=== PATIENT | female | born 1930 | race Caucasian/White ===

== ENCOUNTER 2016-11-21 16:25 | Inpatient (IN) | payer OTHER ==
[2016-11-21 16:41] VITALS: PULSE 66; TEMP 97.9; BMI 23.0
--- NOTE | 2016-11-21 16:56 | PDOC ---
History of Present Illness - General History Source: Family Exam Limitations: No Limitations - History of Present Illness Initial Comments: 11/21/16 17:15 The patient is an 86-year-old female accompanied by son, with a significant past medical history of dementia, anxiety, and osteoporosis, who presents to the ED with loss of appetite and nausea for the past two weeks. As per son, the pt has not been eating solids and has not been drinking enough liquids. The patient will try some food and spit it out. Son brought the pt to her PCP, Dr. Geeta Jackson, on Saturday and he was advised to give the pt vitamin water. Son believes the patient has lost about 5 pounds. On exam, the patient reports abdominal pain. Son denies that the pt has any fever, chills, vomiting, or diarrhea. PCP: Dr. Geeta Jackson <Chiqui Stewart - Last Filed: 11/21/16 17:47> <Lashell Drew - Last Filed: 11/21/16 23:58> - General Chief Complaint: Loss of Appetite Stated Complaint: ABD PAIN,DEHYDRATED Past History <Chiqui Stewart - Last Filed: 11/21/16 17:47> - Past Medical History Cardiac Disorders: Yes (heart murmur) Dementia: Yes Psychiatric Problems: Yes (anxiety) Suicide Attempt (Hx): No - Surgical History Abdominal Surgery: Yes (OVARIAN) - Immunization History Immunization Up to Date: Yes - Psycho/Social/Smoking Cessation Hx Anxiety: Yes Suicidal Ideation: No Smoking History: Never smoked Have you smoked in the past 12 months: No Information on smoking cessation initiated: No Hx Alcohol Use: No Drug/Substance Use Hx: No Substance Use Type: None Hx Substance Use Treatment: No <Lashell Drew - Last Filed: 11/21/16 23:58> - Past Medical History Allergies/Adverse Reactions: Allergies Allergy/AdvReac Type Severity Reaction Status Date / Time No Known Allergies Allergy Verified 11/21/16 16:37 Home Medications: Ambulatory Orders Acetaminophen [Tylenol] 650 mg PO PRN PRN 11/12/14 Aspirin [ASA -] 81 mg PO DAILY 11/12/14 Quetiapine Fumarate [Seroquel -] 50 mg PO HS 11/12/14 Ibandronate Sodium [Boniva (Monthly)] 150 mg PO Q30D 01/25/15 Pravastatin Sodium [Pravachol -] 20 mg PO HS 02/14/15 Furosemide 20 mg PO DAILY 10/26/15 Memantine HCl [Namenda -] 14 mg PO DAILY 10/26/15 Metoprolol Tartrate 50 mg PO BID 10/26/15 Alprazolam [Alprazolam ER] 1 mg PO BID 11/21/16 Memantine HCl/Donepezil HCl [Namzaric 21 mg-10 mg Capsule] 1 each PO DAILY 11/21 Omeprazole 20 mg PO DAILY 11/21/16 Rivastigmine 1 each TD DAILY 11/21/16 Zolpidem Tartrate [Ambien] 10 mg PO HS 11/21/16 Review of Systems - Review of Systems Able to Perform ROS?: Yes Comments:: 11/21/16 17:15 GENERAL/CONSTITUTIONAL: No fever or chills. No weakness. +loss of appetite HEAD, EYES, EARS, NOSE AND THROAT: No change in vision. No ear pain or discharge. No sore throat. CARDIOVASCULAR: No chest pain or shortness of breath. RESPIRATORY: No cough, wheezing, or hemoptysis. SKIN: No rash GASTROINTESTINAL: No nausea, vomiting, diarrhea or constipation. +nausea, abdominal pain GENITOURINARY: No dysuria, frequency, or change in urination. MUSCULOSKELETAL: No joint or muscle swelling or pain. No neck or back pain. NEUROLOGIC: No headache, vertigo, loss of consciousness, or change in strength/ sensation. ENDOCRINE: No increased thirst. No abnormal weight change. HEMATOLOGIC/LYMPHATIC: No anemia, easy bleeding, or history of blood clots. ALLERGIC/IMMUNOLOGIC: No hives or skin allergy. <Chiqui Stewart - Last Filed: 11/21/16 17:47> *Physical Exam - Vital Signs Last Vital Signs Temp Pulse Resp BP Pulse Ox 97.9 F 66 20 112/58 97 11/21/16 16:37 11/21/16 16:37 11/21/16 16:37 11/21/16 16:37 11/21/16 16:37 - Physical Exam Comments: 11/21/16 17:16 GENERAL: Awake, alert, and fully oriented, in no acute distress HEAD: No signs of trauma ENT: Auricles normal inspection, nares patent, oropharynx clear EYES: PERRLA, EOMI, sclera anicteric, conjunctiva clear without exudates. +Mild dry mucous membranes. NECK: Normal ROM, supple, no lymphadenopathy, JVD, or masses LUNGS: Breath sounds equal, clear to auscultation bilaterally. No wheezes, and no crackles HEART: Regular rate and rhythm, normal S1 and S2, no murmurs, rubs or gallops ABDOMEN: Soft, nontender, normoactive bowel sounds. No guarding, no rebound. No masses EXTREMITIES: Normal range of motion, no edema. No clubbing or cyanosis. No cords, erythema, or tenderness NEUROLOGICAL: Normal speech. Moves all extremities. SKIN: Warm, Dry, normal turgor, no rashes or lesions noted. <Chiqui Stewart - Last Filed: 11/21/16 17:47> - Vital Signs Last Vital Signs Temp Pulse Resp BP Pulse Ox 97.9 F 66 20 112/58 97 11/21/16 16:37 11/21/16 16:37 11/21/16 16:37 11/21/16 16:37 11/21/16 16:37 <Lashell Drew - Last Filed: 11/21/16 23:58> Heart Score/ECG Review #1 General ECG Interpretation: Sinus Rhythm, Normal Rate (66), Normal Intervals, No acute ischemic changes - ECG Intrepretation Rhythm: Regular Rhythm - Austin Austin: Normal <Lashell Drew - Last Filed: 11/21/16 23:58> ED Treatment Course - LABORATORY CBC & Chemistry Diagram: 11/21/16 17:40 11/21/16 17:40 <Chiqui Stewart - Last Filed: 11/21/16 17:47> - LABORATORY CBC & Chemistry Diagram: 11/21/16 17:40 11/21/16 17:40 <Lashell Drew - Last Filed: 11/21/16 23:58> Medical Decision Making - Medical Decision Making 11/21/16 16:53 86 yo F with no pmhx living with family here wtih c/o loss of appetitie for 2 weeks. brought by her son who states over last week pt refusing to eat or drink anything. states she feels nauseas. no f/c no cp no sob. does complain of abd distension. no c/o change to bm. no h/o cancer. no vomiting. pt pcp dr. Geeta jackson on exam awake awake alert mild dry mucous membranes. cardiac lung exam are normal. abd soft NT ND. ext wwp. no edema. nuerologically moves all ext. differential: renal failure, electrolyte abnormality, cancer, uti or other infection, anemia, plan cxr ekg labs ua . iv hydration. pt will require admission for further workup and FTT. 11/21/16 23:57 d/w pt and family. would like to take patient home. explained not advised as pt has uti, not tolerating po well. states she feels better and drank in ed. aware of risk of overwhelming infection will take home and given antiobtioc.s encourage to follow up with dr jackson tomorrow. left AMA <Lashell Drew - Last Filed: 11/21/16 23:58> *DC/Admit/Observation/Transfer - Attestations Scribe Attestion: 11/21/16 17:17 Documentation prepared by Chiqui Stewart, acting as medical center manager for Lashell Drew MD. <Chiqui Stewart - Last Filed: 11/21/16 17:47> - Discharge Dispostion Admit: No <Lashell Drew - Last Filed: 11/21/16 23:58> Diagnosis at time of Disposition: UTI (urinary tract infection) - Discharge Dispostion Disposition: HOME Condition at time of disposition: Fair - Referrals
[2016-11-21 17:46] LABS: BASOPHIL 0.5 % (0-2.0); EOSINOPHIL 0.2 % (0-4.5); MCH 29.9 pg (25.7-33.7); MCHC 32.8 g/dl (32.0-36.0); MEAN CELL VOLUME 91.3 fl (80-96); MEAN PLT VOLUME 7.1 fl (7.5-11.1); NEUTROPHILS 71.1 % (42.8-82.8); PLATELET COUNT 308 K/MM3 (134-434); RDW 13.4 % (11.6-15.6); WHITE BLOOD COUNT 8.3 K/mm3 (4.0-10.0)
[2016-11-21 18:16] LABS: ALBUMIN 3.3 g/dl (3.4-5.0); ANION GAP 9 (8-16); CALCIUM 9.5 mg/dL (8.5-10.1); CO2 29 mmol/L (21-32); COCKROFT - GAULT 63.8095; CREATININE 0.6 mg/dL (0.55-1.02); GLUCOSE,RANDOM 115 mg/dL (74-106); SGOT/AST 21 U/L (15-37); SGPT/ALT 20 U/L (12-78); TOT PROT 7.4 g/dl (6.4-8.2)
[2016-11-21 18:22] LABS: ALK PHOS 114 U/L (45-117); BILIRUBIN,TOTAL 0.4 mg/dL (0.2-1.0)
[2016-11-21 18:35] LABS: URINE APPEARANCE CLOUDY; URINE BILIRUBIN NEGATIVE (NEGATIVE); URINE BLOOD NEGATIVE (NEGATIVE); URINE COLOR AMBER; URINE GLUCOSE (UA) NEGATIVE (NEGATIVE); URINE KETONE 1+ (NEGATIVE); URINE NITRITE NEGATIVE (NEGATIVE); URINE UROBILINOGEN NEGATIVE E.U./dl (0.2-1.0)
[2016-11-21 18:54] LABS: URINE LEUK ESTERASE 2+ (NEGATIVE); URINE PROTEIN 1+ (NEGATIVE)
[2016-11-21 18:55] LABS: URINE BACTERIA MODERATE /hpf (NONE SEEN); URINE HYALINE CAST 1 /lpf; URINE MUCUS MODERATE; URINE RBC 2 /hpf (0-3); URINE WBC 75 /hpf (3-5)
[2016-11-21 19:48] VITALS: BP 134/68
[2016-11-21 19:49] LABS: TROPONIN I < 0.02 ng/ml (0.00-0.05)
[2016-11-21] MEDS ORDERED: CEFTRIAXONE 1 GM in DEXTROSE 5%-WATER - 50 ML IVPB ONE (20:10)
[2016-11-21] MEDS ORDERED: CEFTRIAXONE 50 ML ONE (20:12)
--- NOTE | 2016-11-22 12:37 | EKG ---
Test Reason : Blood Pressure : / mmHG Vent. Rate : 066 BPM Atrial Rate : 066 BPM P-R Int : 200 ms QRS Dur : 080 ms QT Int : 428 ms P-R-T Axes : 069 -26 055 degrees QTc Int : 448 ms SINUS RHYTHM WITH PREMATURE SUPRAVENTRICULAR COMPLEXES POSSIBLE LEFT ATRIAL ENLARGEMENT BORDERLINE ECG WHEN COMPARED WITH ECG OF 26-OCT-2015 11:56, PREMATURE SUPRAVENTRICULAR COMPLEXES ARE NOW PRESENT Confirmed by KIANA LINTON, CHRISTOPH ([id number]) on 11/22/2016 12:37:19 PM Referred By: Confirmed By:CHRISTOPH BRUNO MD
--- NOTE | 2016-11-22 14:37 | HP ---
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 Cardiovascular: Yes: HTN, Hyperlipdemia, Murmur Gastrointestinal: Yes: GERD - Smoking History Smoking history: Never smoked Have you smoked in the past 12 months: No - Alcohol/Substance Use Hx Alcohol Use: No Home Medications - Allergies Allergies/Adverse Reactions: Allergies Allergy/AdvReac Type Severity Reaction Status Date / Time No Known Allergies Allergy Verified 11/21/16 16:37 - Home Medications Home Medications: Ambulatory Orders Acetaminophen [Tylenol] 650 mg PO PRN PRN 11/12/14 Aspirin [ASA -] 81 mg PO DAILY 11/12/14 Quetiapine Fumarate [Seroquel -] 50 mg PO HS 11/12/14 Ibandronate Sodium [Boniva (Monthly)] 150 mg PO Q30D 01/25/15 Pravastatin Sodium [Pravachol -] 20 mg PO HS 02/14/15 Furosemide 20 mg PO DAILY 10/26/15 Memantine HCl [Namenda -] 14 mg PO DAILY 10/26/15 Metoprolol Tartrate 50 mg PO BID 10/26/15 Alprazolam [Alprazolam ER] 1 mg PO BID 11/21/16 Memantine HCl/Donepezil HCl [Namzaric 21 mg-10 mg Capsule] 1 each PO DAILY 11/21 Omeprazole 20 mg PO DAILY 11/21/16 Rivastigmine 1 each TD DAILY 11/21/16 Zolpidem Tartrate [Ambien] 10 mg PO HS 11/21/16 Cephalexin Monohydrate [Keflex -] 500 mg PO Q8H #21 capsule MDD 3 11/22/16 Physical Examination Vital Signs: Vital Signs Temperature 97.9 F 11/21/16 16:37 Pulse Rate 66 11/21/16 19:48 Respiratory Rate 20 11/21/16 19:48 Blood Pressure 134/68 11/21/16 19:48 O2 Sat by Pulse Oximetry (%) 100 11/21/16 21:07
== END 2016-11-22 00:30 | disposition home or self-care (01) | DRG 690 ==
LOC: JER 16:25 → JERBED 20:57
PROVIDERS: ADMIT Internal Medicine; ATTEND Internal Medicine
DX: N39.0 Urinary tract infection, site not specified (principal); B96.20 Unspecified Escherichia coli [E. coli] as the cause of diseases classified elsewhere; F41.9 Anxiety disorder, unspecified; F03.90 Unspecified dementia, unspecified severity, without behavioral disturbance, psychotic disturbance, mood disturbance, and anxiety; M81.8 Other osteoporosis without current pathological fracture; R63.0 Anorexia; Z68.23 Body mass index [BMI] 23.0-23.9, adult; E86.0 Dehydration; R01.1 Cardiac murmur, unspecified; E78.5 Hyperlipidemia, unspecified; K21.9 Gastro-esophageal reflux disease without esophagitis
CPT/HCPCS: 36415; 71010-TC; 74177-TC; 80053; 81003; 81015; 82550; 83690; 84484; 85025; 87086; 87186; 93005; 93010; 99284-25; 99285-25; J1644; Q9967

== ENCOUNTER 2016-11-22 16:10 | Inpatient (IN) | payer OTHER ==
[2016-11-22] MEDS ORDERED: CEFTRIAXONE 1 GM in DEXTROSE 5%-WATER - 50 ML IVPB ONE (20:31)
--- NOTE | 2016-11-22 20:32 | PDOC ---
History of Present Illness - General Chief Complaint: Weakness Stated Complaint: PCP ADMIT Time Seen by Provider: 11/22/16 19:11 - History of Present Illness Initial Comments: 11/22/16 20:32 CHIEF COMPLAINT: UTI HISTORY OF PRESENT ILLNESS: 86 yo F with PMH of dementia, anxiety, and osteoporosis returns to ER after being admitted yesterday for UTI and signing out AMA. Family states patient got anxious and agitated yesterday due to another combative patient in the ER and she wanted to go home. Family states that they were able to convince her to return to receive "care from the doctors here." Patient denies having any complaints at this time. PAST MEDICAL HISTORY: as per HPI FAMILY HISTORY: Denies SOCIAL HISTORY: Denies tobacco, alcohol, illicit drug use. SURGICAL HISTORY: Denies ALLERGIES: No known drug allergies REVIEW OF SYSTEMS General/Constitutional: Denies fever or chills. Denies weakness, weight change. HEENT: Denies change in vision. Denies ear pain or discharge. Denies sore throat. Cardiovascular: Denies chest pain or shortness of breath. Respiratory: Denies cough, wheezing, or hemoptysis. Gastrointestinal: Denies nausea, vomiting, diarrhea or constipation. Denies rectal bleeding. Genitourinary: Denies dysuria, frequency, or change in urination. Musculoskeletal: Denies joint or muscle swelling or pain. Denies neck or back pain. Skin and breasts: Denies rash or easy bruising. Neurologic: Denies headache, vertigo, loss of consciousness, or loss of sensation. PHYSICAL EXAM General Appearance: Well-appearing, appropriately dressed. No apparent distress. HEENT: EOMI, PERRLA, normal ENT inspection, normal voice, TMs normal, pharynx normal. No conjunctival pallor. No photophobia, scleral icterus. Respiratory/Chest: Lungs CTAB. Cardiovascular: RRR. S1, S2. Gastrointestinal/Abdominal: Normal bowel sounds. Abdomen soft, non-distended. No tenderness or rebound tenderness. No organomegaly, pulsatile mass, guarding , hernia, hepatomegaly, splenomegaly. Musculoskeletal/Extremities: Normal inspection. FROM of all extremities, normal capillary refill. Pelvis Stable. No CVA tenderness. No tenderness to extremities, pedal edema, swelling, erythema or deformity. Integumentary: Appropriate color, dry, warm. 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 Fully oriented, alert. Appropriate mood/affect. Motor strength 5/5. No appreciable EOM palsy, facial droop or sensory deficit. 11/22/16 20:52 Past History - Past Medical History Allergies/Adverse Reactions: Allergies Allergy/AdvReac Type Severity Reaction Status Date / Time No Known Allergies Allergy Verified 11/22/16 16:17 Home Medications: Ambulatory Orders Acetaminophen [Tylenol] 650 mg PO PRN PRN 11/12/14 Aspirin [ASA -] 81 mg PO DAILY 11/12/14 Quetiapine Fumarate [Seroquel -] 50 mg PO HS 11/12/14 Ibandronate Sodium [Boniva (Monthly)] 150 mg PO Q30D 01/25/15 Pravastatin Sodium [Pravachol -] 20 mg PO HS 02/14/15 Furosemide 20 mg PO DAILY 10/26/15 Memantine HCl [Namenda -] 14 mg PO DAILY 10/26/15 Metoprolol Tartrate 50 mg PO BID 10/26/15 Alprazolam [Alprazolam ER] 1 mg PO BID 11/21/16 Memantine HCl/Donepezil HCl [Namzaric 21 mg-10 mg Capsule] 1 each PO DAILY 11/21 Omeprazole 20 mg PO DAILY 11/21/16 Rivastigmine 1 each TD DAILY 11/21/16 Zolpidem Tartrate [Ambien] 10 mg PO HS 11/21/16 Cephalexin Monohydrate [Keflex -] 500 mg PO Q8H #21 capsule MDD 3 11/22/16 Cardiac Disorders: Yes (heart murmur) Dementia: Yes Psychiatric Problems: Yes (anxiety) Suicide Attempt (Hx): No - Surgical History Abdominal Surgery: Yes (OVARIAN) - Immunization History Immunization Up to Date: Yes - Psycho/Social/Smoking Cessation Hx Anxiety: No Suicidal Ideation: No Smoking History: Never smoked Have you smoked in the past 12 months: No Hx Alcohol Use: No Drug/Substance Use Hx: No Substance Use Type: None Hx Substance Use Treatment: No *Physical Exam - Vital Signs Last Vital Signs Temp Pulse Resp BP Pulse Ox 98.1 F 83 18 116/53 94 L 11/22/16 16:18 11/22/16 16:18 11/22/16 16:18 11/22/16 16:18 11/22/16 16:18 Medical Decision Making - Medical Decision Making 11/22/16 20:52 86 yo F with PMH of dementia, anxiety, and osteoporosis returns to ER after being admitted yesterday for UTI and signing out AMA. Discussed case with patient's PMD Manuel, who accepts patient for inpatient admission. Will start patient on 1 g ceftriaxone per PMD. *DC/Admit/Observation/Transfer Diagnosis at time of Disposition: UTI (urinary tract infection) - Discharge Dispostion Admit: Yes
[2016-11-22] MEDS ORDERED: CEFTRIAXONE 50 ML ONE (20:55)
[2016-11-22] MEDS ORDERED: ACETAMINOPHEN 325 MG TABLET (FP) PO PRN (21:07)
[2016-11-22] MEDS: D5-1/2NS+20 MEQ KCL - 1,000 ML IV SCH (21:29)
--- NOTE | 2016-11-22 21:40 | PDOC ---
*Physical Exam - Vital Signs Last Vital Signs Temp Pulse Resp BP Pulse Ox 98.1 F 83 18 116/53 94 L 11/22/16 16:18 11/22/16 16:18 11/22/16 16:18 11/22/16 16:18 11/22/16 16:18 ED Treatment Course - Medications Given in the ED: ED Medications Discontinued Medications Generic Name Dose Route Start Last Admin Trade Name Freq PRN Reason Stop Dose Admin Ceftriaxone Sodium 1 gm/ 50 mls @ 100 mls/hr 11/22/16 20:31 11/22/16 21:00 Dextrose IVPB 11/22/16 21:00 100 mls/hr ONCE ONE Administration Medical Decision Making - Medical Decision Making 11/22/16 21:40 agree with care from ALEKS Lara *DC/Admit/Observation/Transfer Diagnosis at time of Disposition: UTI (urinary tract infection)
[2016-11-22] MEDS ORDERED: METOPROLOL TARTRATE 50 MG TABLET (FP) ONE (22:45)
[2016-11-22] MEDS ORDERED: ALPRAZolam 0.25 MG TABLET ONE (22:46)
[2016-11-22] MEDS: ALPRAZolam 2 MG TABLET PO SCH (23:04)
[2016-11-22] MEDS: METOPROLOL TARTRATE 50 MG TABLET (FP) PO SCH (23:04)
[2016-11-23 06:02] LABS: BASOPHIL 0.8 % (0-2.0); EOSINOPHIL 1.5 % (0-4.5); MCH 29.5 pg (25.7-33.7); MCHC 32.3 g/dl (32.0-36.0); MEAN CELL VOLUME 91.5 fl (80-96); NEUTROPHILS 58.5 % (42.8-82.8); PLATELET COUNT 246 K/MM3 (134-434); RDW 13.9 % (11.6-15.6); WHITE BLOOD COUNT 7.6 K/mm3 (4.0-10.0)
[2016-11-23 06:33] LABS: ANION GAP 8 (8-16); CO2 28 mmol/L (21-32); CREATININE 0.7 mg/dL (0.55-1.02); GLUCOSE,RANDOM 109 mg/dL (74-106); SGOT/AST 19 U/L (15-37); SGPT/ALT 18 U/L (12-78)
[2016-11-23 06:35] LABS: ALK PHOS 99 U/L (45-117); BILIRUBIN,TOTAL 0.3 mg/dL (0.2-1.0); TOT PROT 6.5 g/dl (6.4-8.2)
--- NOTE | 2016-11-23 09:27 | HP ---
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 After being convinced by her family to receive treatment here, patient return for further evaluation. Patient was started on 1g of Ceftriaxone in the ER. Patient seen and examined in the ER today. Chart reviewed. Patient at present is comfortable. Poor historian. Mood is calm. Family at bedside. History Source: Family Member, Medical Record Limitations to Obtaining History: Dementia <Lima Hernandez - Last Filed: 11/23/16 12:17> Home Medications <Clarence Duque - Last Filed: 11/23/16 09:27> <Lima Hernandez - Last Filed: 11/23/16 12:17> - Allergies Allergies/Adverse Reactions: Allergies Allergy/AdvReac Type Severity Reaction Status Date / Time No Known Allergies Allergy Verified 11/22/16 16:17 - Home Medications Home Medications: Ambulatory Orders Acetaminophen [Tylenol] 650 mg PO PRN PRN 11/12/14 Aspirin [ASA -] 81 mg PO DAILY 11/12/14 Quetiapine Fumarate [Seroquel -] 50 mg PO HS 11/12/14 Ibandronate Sodium [Boniva (Monthly)] 150 mg PO Q30D 01/25/15 Pravastatin Sodium [Pravachol -] 20 mg PO HS 02/14/15 Furosemide 20 mg PO DAILY 10/26/15 Memantine HCl [Namenda -] 14 mg PO DAILY 10/26/15 Metoprolol Tartrate 50 mg PO BID 10/26/15 Alprazolam [Alprazolam ER] 1 mg PO BID 11/21/16 Memantine HCl/Donepezil HCl [Namzaric 21 mg-10 mg Capsule] 1 each PO DAILY 11/21 Omeprazole 20 mg PO DAILY 11/21/16 Rivastigmine 1 each TD DAILY 11/21/16 Zolpidem Tartrate [Ambien] 10 mg PO HS 11/21/16 Cephalexin Monohydrate [Keflex -] 500 mg PO Q8H #21 capsule MDD 3 11/22/16 Review of Systems Unable to obtain ROS, reason: See HPI. <Lima Hernandez - Last Filed: 11/23/16 12:17> Physical Examination Vital Signs: Vital Signs Temperature 97.6 F 11/22/16 23:01 Pulse Rate 88 11/22/16 23:01 Respiratory Rate 20 11/22/16 23:01 Blood Pressure 116/69 11/22/16 23:01 O2 Sat by Pulse Oximetry (%) 94 L 11/22/16 16:18 Labs: CBC, [facility] 11/23/16 05:50 11/23/16 05:50 <Clarence Duque - Last Filed: 11/23/16 09:27> Vital Signs: Vital Signs Temperature 97.6 F 11/22/16 23:01 Pulse Rate 88 11/22/16 23:01 Respiratory Rate 20 11/22/16 23:01 Blood Pressure 116/69 11/22/16 23:01 O2 Sat by Pulse Oximetry (%) 94 L 11/22/16 16:18 Constitutional: Yes: No Distress, Calm Eyes: Yes: Conjunctiva Clear Cardiovascular: Yes: Regular Rate and Rhythm Respiratory: Yes: CTA Bilaterally Gastrointestinal: Yes: Soft Edema: No Neurological: Yes: Other (Awake.) Psychiatric: Yes: Other (Awake.) Labs: CBC, [facility] 11/23/16 05:50 11/23/16 05:50 <Lima Hernandez - Last Filed: 11/23/16 12:17> Imaging - Results Chest X-ray: Report Reviewed Cat Scan: Report Reviewed EKG: Report Reviewed <Lima Hernandez - Last Filed: 11/23/16 12:17> Problem List - Problems (1) UTI (urinary tract infection) Code(s): N39.0 - URINARY TRACT INFECTION, SITE NOT SPECIFIED (2) Dementia Code(s): F03.90 - UNSPECIFIED DEMENTIA WITHOUT BEHAVIORAL DISTURBANCE Qualifiers: Dementia type: Alzheimer's disease (3) Anxiety Code(s): F41.9 - ANXIETY DISORDER, UNSPECIFIED <Lima Hernandez - Last Filed: 11/23/16 12:17> Assessment/Plan - Continue antibiotics. - Continue mild hydration. - Follow up urine cultures. - Labs noted. - Physical Therapy. - Discussed with patient's family. - Patient walks with walker at home. - May need short term rehabilitation. - Will follow. Documentation prepared by Lima Hernandez, acting as a biomedical electronics technician for Clarence Duque MD. <Lima Hernandez - Last Filed: 11/23/16 12:17>
[2016-11-23] MEDS ORDERED: cefTRIAXone SODIUM 1 GM VIAL IM SCH (10:00)
[2016-11-23] MEDS ORDERED: PANTOPRAZOLE 40 MG TABLET (FP) ONE (11:13)
[2016-11-23] MEDS ORDERED: ALPRAZolam 0.25 MG TABLET ONE (11:13)
[2016-11-23] MEDS ORDERED: METOPROLOL TARTRATE 50 MG TABLET (FP) ONE (11:14)
[2016-11-23] MEDS: ALPRAZolam 2 MG TABLET PO SCH ×2 (11:20→22:05)
[2016-11-23] MEDS: cefTRIAXone 1 GM/50 ML BAG (PRE-DOCKED) IVPB SCH (11:20)
[2016-11-23] MEDS: PANTOPRAZOLE 20 MG TABLET (FP) PO SCH (11:20)
[2016-11-23] MEDS: HEPARIN NA (PORCINE) 5,000 UNITS/ML 1ML VIAL SQ SCH ×2 (11:20→22:03)
[2016-11-23] MEDS: METOPROLOL TARTRATE 50 MG TABLET (FP) PO SCH ×2 (11:20→22:04)
--- NOTE | 2016-11-23 14:17 | EKG ---
Test Reason : Blood Pressure : / mmHG Vent. Rate : 072 BPM Atrial Rate : 072 BPM P-R Int : 182 ms QRS Dur : 076 ms QT Int : 414 ms P-R-T Axes : 072 -42 071 degrees QTc Int : 453 ms NORMAL SINUS RHYTHM LEFT AXIS DEVIATION NONSPECIFIC T WAVE ABNORMALITY Confirmed by FABIAN HUDDLESTON MD ([id number]) on 11/23/2016 2:17:35 PM Referred By: MICKEY HERNANDEZ Confirmed By:FABIAN HUDDLESTON MD
[2016-11-23] MEDS: D5-1/2NS+20 MEQ KCL - 1,000 ML IV SCH (20:51)
[2016-11-23] MEDS: ZOLPIDEM TARTRATE 5 MG TABLET PO PRN (22:36)
[2016-11-23 23:28] VITALS: BMI 27.5
[2016-11-24] MEDS: ALPRAZolam 2 MG TABLET PO SCH ×2 (09:04→21:03)
[2016-11-24] MEDS: HEPARIN NA (PORCINE) 5,000 UNITS/ML 1ML VIAL SQ SCH ×2 (09:05→21:02)
[2016-11-24] MEDS: PANTOPRAZOLE 20 MG TABLET (FP) PO SCH (09:05)
[2016-11-24] MEDS: cefTRIAXone 1 GM/50 ML BAG (PRE-DOCKED) IVPB SCH (09:13)
[2016-11-24] MEDS: METOPROLOL TARTRATE 25 MG TABLET (FP) PO SCH ×2 (10:40→21:03)
[2016-11-24] MEDS: D5-1/2NS+20 MEQ KCL - 1,000 ML IV SCH (10:40)
--- NOTE | 2016-11-24 10:54 | PN ---
Progress Note, Physician Chief Complaint: daughter at bedside pt does not have a good appetite not agitated - Current Medication List Current Medications: Active Medications Acetaminophen (Tylenol -) 650 mg PO Q6H PRN PRN Reason: PAIN Alprazolam (Xanax -) 1 mg PO BID [facility] Last Admin: 11/24/16 09:04 Dose: 1 mg Ceftriaxone Sodium (Rocephin 1gm Ivpb (Pre-Docked)) 1 gm IVPB DAILY [facility] Last Admin: 11/24/16 09:13 Dose: 1 gm Heparin Sodium (Porcine) (Heparin -) 5,000 unit SQ BID [facility] Last Admin: 11/24/16 09:05 Dose: 5,000 unit Potassium Chloride/Dextrose/Sod Cl (D5-1/2ns+20 Meq Kcl -) 1,000 mls @ 75 mls/ hr IV ASDIR [facility] Last Admin: 11/24/16 10:40 Dose: 75 mls/hr Metoprolol Tartrate (Lopressor -) 25 mg PO BID [facility] Last Admin: 11/24/16 10:40 Dose: 25 mg Non-Formulary Medication (Memantine Hcl/Donepezil Hcl [Namzaric 21 Mg-10 Mg Capsule]) 1 each PO DAILY [facility] Pantoprazole Sodium (Protonix -) 20 mg PO DAILY [facility] Last Admin: 11/24/16 09:05 Dose: 20 mg Zolpidem Tartrate (Ambien -) 5 mg PO HS PRN PRN Reason: INSOMNIA Last Admin: 11/23/16 22:36 Dose: 5 mg - Objective Vital Signs: Vital Signs Temperature 97.5 F L 11/24/16 06:00 Pulse Rate 72 11/24/16 09:00 Respiratory Rate 187 H 11/24/16 09:00 Blood Pressure 104/50 11/24/16 09:00 O2 Sat by Pulse Oximetry (%) 93 L 11/23/16 21:00 Constitutional: Yes: No Distress Cardiovascular: Yes: Regular Rate and Rhythm Respiratory: Yes: CTA Bilaterally Gastrointestinal: Yes: Normal Bowel Sounds, Soft. No: Tenderness Edema: No Labs: CBC, BMP 11/23/16 05:50 11/23/16 05:50 Problem List - Problems (1) Anxiety Code(s): F41.9 - ANXIETY DISORDER, UNSPECIFIED (2) UTI (urinary tract infection) Code(s): N39.0 - URINARY TRACT INFECTION, SITE NOT SPECIFIED Qualifiers: Urinary tract infection type: acute cystitis (3) DVT prophylaxis Code(s): [id number] - Assessment/Plan PLAN urine cultures noted Pt on antibiotics and iv fluids continue with meds fall precautions DVT prophylxsi encourage PO
[2016-11-24] MEDS ORDERED: D5-1/2NS+20 MEQ KCL - 1,000 ML IV SCH (17:31)
[2016-11-24] MEDS: ZOLPIDEM TARTRATE 5 MG TABLET PO PRN (21:04)
--- NOTE | 2016-11-25 09:07 | PN ---
Progress Note, Physician Chief Complaint: daughter at bedside appetite better' no distress - Current Medication List Current Medications: Active Medications Acetaminophen (Tylenol -) 650 mg PO Q6H PRN PRN Reason: PAIN Alprazolam (Xanax -) 1 mg PO BID [facility] Last Admin: 11/24/16 21:03 Dose: 1 mg Ceftriaxone Sodium (Rocephin 1gm Ivpb (Pre-Docked)) 1 gm IVPB DAILY [facility] Last Admin: 11/24/16 09:13 Dose: 1 gm Heparin Sodium (Porcine) (Heparin -) 5,000 unit SQ BID [facility] Last Admin: 11/24/16 21:02 Dose: 5,000 unit Potassium Chloride/Dextrose/Sod Cl (D5-1/2ns+20 Meq Kcl -) 1,000 mls @ 60 mls/ hr IV ASDIR [facility] Last Admin: 11/24/16 21:01 Dose: 60 mls/hr Metoprolol Tartrate (Lopressor -) 25 mg PO BID [facility] Last Admin: 11/24/16 21:03 Dose: 25 mg Non-Formulary Medication (Memantine Hcl/Donepezil Hcl [Namzaric 21 Mg-10 Mg Capsule]) 1 each PO DAILY [facility] Pantoprazole Sodium (Protonix -) 20 mg PO DAILY [facility] Last Admin: 11/24/16 09:05 Dose: 20 mg Zolpidem Tartrate (Ambien -) 5 mg PO HS PRN PRN Reason: INSOMNIA Last Admin: 11/24/16 21:04 Dose: 5 mg - Objective Vital Signs: Vital Signs Temperature 98.3 F 11/25/16 02:32 Pulse Rate 81 11/25/16 02:32 Respiratory Rate 18 11/25/16 02:32 Blood Pressure 112/55 11/25/16 02:32 O2 Sat by Pulse Oximetry (%) 97 11/24/16 21:00 Constitutional: Yes: No Distress Cardiovascular: Yes: Regular Rate and Rhythm Respiratory: Yes: CTA Bilaterally Gastrointestinal: Yes: Normal Bowel Sounds, Soft. No: Tenderness Edema: No Labs: CBC, BMP 11/23/16 05:50 11/23/16 05:50 Problem List - Problems (1) Anxiety Code(s): F41.9 - ANXIETY DISORDER, UNSPECIFIED (2) UTI (urinary tract infection) Code(s): N39.0 - URINARY TRACT INFECTION, SITE NOT SPECIFIED Qualifiers: Urinary tract infection type: acute cystitis (3) DVT prophylaxis Code(s): [id number] - Assessment/Plan PLAN urine cultures noted Pt on antibiotics and iv fluids will dc fluids today tomorrow can go be dc home after antibiotics continue with meds fall precautions DVT prophylxsi encourage PO
[2016-11-25] MEDS: HEPARIN NA (PORCINE) 5,000 UNITS/ML 1ML VIAL SQ SCH ×2 (09:16→21:10)
[2016-11-25] MEDS: cefTRIAXone 1 GM/50 ML BAG (PRE-DOCKED) IVPB SCH (09:17)
[2016-11-25] MEDS: METOPROLOL TARTRATE 25 MG TABLET (FP) PO SCH ×2 (09:17→21:10)
[2016-11-25] MEDS: ALPRAZolam 2 MG TABLET PO SCH ×2 (09:17→21:11)
[2016-11-25] MEDS: PANTOPRAZOLE 20 MG TABLET (FP) PO SCH (09:17)
[2016-11-25] MEDS: DONEPEZIL HCL PO SCH ×2 (11:44→11:48)
[2016-11-25] MEDS: [UNRECOGNIZED DRUG - OTHER] PO SCH ×2 (11:44→11:48)
[2016-11-25] MEDS: MEMANTINE HCL PO SCH ×2 (11:44→11:48)
[2016-11-25] MEDS ORDERED: POLYETHYLENE GLYCOL 3350 119 GM BTL PO SCH (16:15)
[2016-11-25] MEDS: ZOLPIDEM TARTRATE 5 MG TABLET PO PRN (21:11)
--- NOTE | 2016-11-26 08:05 | DS ---
Physical Examination Vital Signs: Vital Signs Temperature 98.5 F 11/26/16 07:08 Pulse Rate 80 11/26/16 07:08 Respiratory Rate 18 11/26/16 07:08 Blood Pressure 122/93 11/26/16 07:08 O2 Sat by Pulse Oximetry (%) 94 L 11/25/16 21:00 Labs: CBC, BMP 11/23/16 05:50 11/23/16 05:50 <Clarence Duque - Last Filed: 11/26/16 08:05> Vital Signs: Vital Signs Temperature 98.5 F 11/26/16 07:08 Pulse Rate 80 11/26/16 07:08 Respiratory Rate 18 11/26/16 07:08 Blood Pressure 122/93 11/26/16 07:08 O2 Sat by Pulse Oximetry (%) 94 L 11/25/16 21:00 Findings/Remarks: Patient seen and examined. Alert and awake. Sitting in chair. No complaints. Family at bedside. Looks much better. Constitutional: Yes: No Distress, Calm Neck: Yes: Supple Cardiovascular: Yes: Regular Rate and Rhythm Respiratory: Yes: CTA Bilaterally Gastrointestinal: Yes: Soft Edema: No Labs: CBC, BMP 11/23/16 05:50 11/23/16 05:50 <Gena Frank - Last Filed: 11/26/16 12:39> Discharge Summary Reason For Visit: URINARY TRACT INFECTION Current Active Problems Anxiety (Acute) UTI (urinary tract infection) (Acute) - Home Medications Comprehensive Discharge Medication List: Ambulatory Orders Acetaminophen [Tylenol] 650 mg PO PRN PRN 11/12/14 Aspirin [ASA -] 81 mg PO DAILY 11/12/14 Quetiapine Fumarate [Seroquel -] 50 mg PO HS 11/12/14 Ibandronate Sodium [Boniva (Monthly)] 150 mg PO Q30D 01/25/15 Pravastatin Sodium [Pravachol -] 20 mg PO HS 02/14/15 Furosemide 20 mg PO DAILY 10/26/15 Memantine HCl [Namenda -] 14 mg PO DAILY 10/26/15 Memantine HCl/Donepezil HCl [Namzaric 21 mg-10 mg Capsule] 1 each PO DAILY 11/21 Omeprazole 20 mg PO DAILY 11/21/16 Rivastigmine 1 each TD DAILY 11/21/16 Alprazolam [Alprazolam ER] 1 mg PO BID PRN #30 capl 11/26/16 Cephalexin Monohydrate [Keflex -] 500 mg PO Q8H #15 capsule MDD 3 11/26/16 Metoprolol Tartrate [Lopressor -] 25 mg PO BID tablet 11/26/16 Polyethylene Glycol 3350 [Miralax 119 gm Btl -] 17 gm PO DAILY bottle 11/26/16 Zolpidem Tartrate [Ambien] 5 mg PO HS PRN #10 tablet MDD 1 11/26/16 <Clarence Duque - Last Filed: 11/26/16 08:05> Current Active Problems Anxiety (Acute) UTI (urinary tract infection) (Acute) Hospital Course: 86 yo F with PMH of dementia, anxiety, and osteoporosis returns to ER after being admitted yesterday for UTI and signing out AMA. Family states patient got anxious and agitated yesterday due to another combative patient in the ER and she wanted to go home. Family states that they were able to convince her to return to receive "care from the doctors here." Patient treated with abx as well as mild hydration. Patient significantly improved. UC showed E. coli. Patient now stable for d/c back to home. Patient to finish abx for another 5 days. Drink fluids. Discussed with pateint's family in detail at bedside. Follow up in office within 1 week. Meds reconciled Plan discussed with nursing staff and caseworker. Documentation prepared by Gena Frank, acting as a medical surgery nurse for Clarence Duque MD. - Home Medications Comprehensive Discharge Medication List: Ambulatory Orders Acetaminophen [Tylenol] 650 mg PO PRN PRN 11/12/14 Aspirin [ASA -] 81 mg PO DAILY 11/12/14 Quetiapine Fumarate [Seroquel -] 50 mg PO HS 11/12/14 Ibandronate Sodium [Boniva (Monthly)] 150 mg PO Q30D 01/25/15 Pravastatin Sodium [Pravachol -] 20 mg PO HS 02/14/15 Furosemide 20 mg PO DAILY 10/26/15 Memantine HCl [Namenda -] 14 mg PO DAILY 10/26/15 Memantine HCl/Donepezil HCl [Namzaric 21 mg-10 mg Capsule] 1 each PO DAILY 06/14 /17 Omeprazole 20 mg PO DAILY 11/21/16 Rivastigmine 1 each TD DAILY 11/21/16 Alprazolam [Alprazolam ER] 1 mg PO BID PRN #30 capl 11/26/16 Cephalexin Monohydrate [Keflex -] 500 mg PO Q8H #15 capsule MDD 3 11/26/16 Metoprolol Tartrate [Lopressor -] 25 mg PO BID tablet 11/26/16 Polyethylene Glycol 3350 [Miralax 119 gm Btl -] 17 gm PO DAILY bottle 11/26/16 Zolpidem Tartrate [Ambien] 5 mg PO HS PRN #10 tablet MDD 1 11/26/16 <Gena Frank - Last Filed: 11/26/16 12:39> Condition: Good
[2016-11-26] MEDS ORDERED: PT OWN MED DRAWER 7, Y5N ONE (10:21)
[2016-11-26] MEDS: PANTOPRAZOLE 20 MG TABLET (FP) PO SCH (10:25)
[2016-11-26] MEDS: ALPRAZolam 2 MG TABLET PO SCH (10:25)
[2016-11-26] MEDS: HEPARIN NA (PORCINE) 5,000 UNITS/ML 1ML VIAL SQ SCH (10:26)
[2016-11-26] MEDS: METOPROLOL TARTRATE 25 MG TABLET (FP) PO SCH (10:26)
[2016-11-26] MEDS: cefTRIAXone 1 GM/50 ML BAG (PRE-DOCKED) IVPB SCH (10:26)
[2016-11-26 14:09] VITALS: BP 117/58; PULSE 73; TEMP 98.4
== END 2016-11-26 13:27 | disposition home or self-care (01) | DRG 690 ==
LOC: JER 16:10 → JERBED 20:32 → J5S 11-23 17:45
PROVIDERS: ADMIT Internal Medicine; ATTEND Internal Medicine
DX: N39.0 Urinary tract infection, site not specified (principal); B96.20 Unspecified Escherichia coli [E. coli] as the cause of diseases classified elsewhere; F41.9 Anxiety disorder, unspecified; F03.90 Unspecified dementia, unspecified severity, without behavioral disturbance, psychotic disturbance, mood disturbance, and anxiety; M81.0 Age-related osteoporosis without current pathological fracture; R01.1 Cardiac murmur, unspecified; K21.9 Gastro-esophageal reflux disease without esophagitis; E78.5 Hyperlipidemia, unspecified; E86.0 Dehydration
CPT/HCPCS: 36415; 80053; 85025; 93005; 93010; 99284-25; J1644

== ENCOUNTER 2016-12-14 15:24 | Inpatient (IN) | payer OTHER ==
[2016-12-14 16:42] VITALS: BMI 23.0
[2016-12-14] MEDS ORDERED: SODIUM CHLORIDE 1,000 ML IV STA (16:57)
[2016-12-14 17:20] LABS: BASOPHIL 0.5 % (0-2.0); EOSINOPHIL 0.6 % (0-4.5); MCH 29.7 pg (25.7-33.7); MCHC 32.6 g/dl (32.0-36.0); MEAN CELL VOLUME 91.3 fl (80-96); NEUTROPHILS 59.9 % (42.8-82.8); PLATELET COUNT 322 K/MM3 (134-434); RDW 13.8 % (11.6-15.6)
[2016-12-14 17:29] LABS: URINE APPEARANCE SLCLOUDY; URINE BILIRUBIN NEGATIVE (NEGATIVE); URINE GLUCOSE (UA) NEGATIVE (NEGATIVE); URINE KETONE 1+ (NEGATIVE); URINE NITRITE POSITIVE (NEGATIVE); URINE UROBILINOGEN 4.0 E.U/dl E.U./dl (0.2-1.0)
[2016-12-14 17:30] LABS: URINE BLOOD 1+ (NEGATIVE); URINE COLOR YELLOW; URINE LEUK ESTERASE 1+ (NEGATIVE); URINE PROTEIN 1+ (NEGATIVE)
--- NOTE | 2016-12-14 17:30 | PDOC ---
History of Present Illness - General Chief Complaint: Pain, Acute Stated Complaint: WEAKNESS Time Seen by Provider: 12/14/16 15:37 History Source: Other (son) Exam Limitations: No Limitations - History of Present Illness Initial Comments: 12/14/16 16:30 86-year-old female presents to the ED with complaints of generalized weakness, decreased appetite, decreased urine and decreased constipation. As per son patient has had no change in urine pattern, fever, chills, vomiting , rash, or difficulty breathing. Patient denies chest pain, headache, sore throat, back pain, dysuria, or dizziness. Patient does complain of generalized abdominal cramping and no appetite. Patient with history of dementia and as per son Dr. Tapia has discussed the option of a PEG tube but at this time the son is refusing. Son states patient had a urinary tract infection 3 weeks ago which brought her into the ER for similar complaints. Timing/Duration: getting worse Severity: mild Associated Symptoms: reports: loss of appetite, malaise, weakness Past History - Past Medical History Allergies/Adverse Reactions: Allergies Allergy/AdvReac Type Severity Reaction Status Date / Time No Known Allergies Allergy Verified 12/14/16 15:25 Home Medications: Ambulatory Orders Aspirin [ASA -] 81 mg PO DAILY 11/12/14 Quetiapine Fumarate [Seroquel -] 50 mg PO HS 11/12/14 Ibandronate Sodium [Boniva (Monthly)] 150 mg PO Q30D 01/25/15 Pravastatin Sodium [Pravachol -] 20 mg PO HS 02/14/15 Furosemide 20 mg PO DAILY 10/26/15 Memantine HCl/Donepezil HCl [Namzaric 21 mg-10 mg Capsule] 1 each PO DAILY 11/21 Omeprazole 20 mg PO DAILY 11/21/16 Rivastigmine 1 each TD DAILY 11/21/16 Alprazolam [Alprazolam ER] 1 mg PO BID PRN #30 capl 11/26/16 Metoprolol Tartrate [Lopressor -] 25 mg PO BID tablet 11/26/16 Polyethylene Glycol 3350 [Miralax 119 gm Btl -] 17 gm PO DAILY bottle 11/26/16 Zolpidem Tartrate [Ambien] 5 mg PO HS PRN #10 tablet MDD 1 11/26/16 Cardiac Disorders: Yes (heart murmur) Dementia: Yes Psychiatric Problems: Yes (anxiety) Suicide Attempt (Hx): No - Surgical History Abdominal Surgery: Yes (OVARIAN) - Immunization History Immunization Up to Date: Yes - Psycho/Social/Smoking Cessation Hx Anxiety: No Suicidal Ideation: No Smoking History: Never smoked Have you smoked in the past 12 months: No Hx Alcohol Use: No Drug/Substance Use Hx: No Substance Use Type: None Hx Substance Use Treatment: No Patient Lives Alone: No Lives with/in: son Review of Systems - Review of Systems Able to Perform ROS?: Yes Constitutional: Yes: Loss of Appetite, Malaise, Weakness. No: Unintentional Wgt. Loss Respiratory: No: Symptoms reported Cardiac (ROS): No: Symptoms Reported ABD/GI: Yes: Poor Appetite, Poor Fluid Intake, Abdominal cramping (mild generalized). No: Nausea Integumentary: No: Symptoms Reported Neurological: Yes: Weakness Hematologic/Lymphatic: No: Symptoms Reported *Physical Exam - Vital Signs Last Vital Signs Temp Pulse Resp BP Pulse Ox 98 F 83 18 126/69 97 12/14/16 15:32 12/14/16 15:32 12/14/16 15:32 12/14/16 15:32 12/14/16 15:32 - Physical Exam General Appearance: Yes: Nourished, Appropriately Dressed. No: Apparent Distress HEENT: positive: Pharynx Normal (dry). negative: Pale Conjunctivae Neck: positive: Supple Respiratory/Chest: positive: Lungs Clear, Normal Breath Sounds. negative: Respiratory Distress, Accessory Muscle Use Cardiovascular: positive: Regular Rhythm, Regular Rate. negative: Murmur Gastrointestinal/Abdominal: positive: Soft, Tenderness (left lower quad,) Musculoskeletal: negative: CVA Tenderness Extremity: positive: Normal Capillary Refill. negative: Pedal Edema Integumentary: positive: Normal Color, Warm, Moist Neurologic: positive: Normal Mood/Affect, Motor Strength 5/5 Heart Score/ECG Review - History History: Slightly suspicious - Electrocardiogram EKG: Normal - Age Age: >/= 65 - Risk Factors Risk Factors Heart Score: Yes Hx Hypertension Based on the list above the patient has:: 1-2 risk factors - Troponin Troponin: </= normal limit - Score Heart Score - Total: 3 - ECG Intrepretation Rhythm: Regular Rhythm (patient with a rate of 86. Flipped T waves in V3 V4 V5. Positive change from 12/2016) ED Treatment Course - LABORATORY CBC & Chemistry Diagram: 12/14/16 17:10 12/14/16 17:10 - RADIOLOGY Radiology Studies Ordered: Category Date Time Status CHEST X-RAY PORTABLE* [RAD] Stat Radiology 12/14/16 16:57 Ordered KUB (KID UR & BLAD) [RAD] Stat Radiology 12/14/16 16:57 Ordered Medical Decision Making - Medical Decision Making 12/14/16 16:39 Patient brought in for evaluation of generalized weakness, decreased appetite, and constipation. Patient on exam had mild lower quadrant tenderness on exam. Patient had normal vital signs. Patient ordered for labs including EKG, cardiac profile, urinalysis urine cultures and she was just diagnosed with a UTI 3 weeks ago which she completed antibiotics for. 12/14/16 18:16 Laboratory Tests 10/26/15 12/14/16 13:20 17:00 WBC 8.2 Urine Protein 1+ H Urine Ketones 1+ H Urine Blood 1+ H Urine Nitrite Positive Ur Leukocyte Esterase 1+ H Urine WBC 36 Chest x-ray shows a faint focal opacity in the right lung base that may represent a focal infiltrate. Recommend follow-up chest x-ray within 1 week. KUB shows no acute findings. Patient will be given a dose of ceftriaxone since her previous urine culture was sensitive to cephalosporins secondary to Escherichia coli bacteria 12/14/16 19:21 Patient prolonged QT C of 476. Magnesium was ordered Patient also had a repeat troponin and EKG done at 1100 p.m.Due to inverted T waves noted on awaiting callback from Dr. Geeta Jackson for admission EKG in V4 V5 and V3. 12/14/16 19:[address] Magdalena Duque and agrees for admission. Patient will be admitted to telemetry secondary to EKG changes given IV antibiotics and we'll place consult for assistant clinical nurse manager. *DC/Admit/Observation/Transfer Diagnosis at time of Disposition: Complicated UTI (urinary tract infection), Failure to thrive, Acute electrocardiography changes - Discharge Dispostion Admit: Yes
[2016-12-14 17:31] LABS: URINE BACTERIA MODERATE /hpf (NONE SEEN); URINE HYALINE CAST 1 /lpf; URINE MUCUS FEW; URINE RBC 6 /hpf (0-3); URINE WBC 36 /hpf (3-5)
[2016-12-14 17:57] LABS: ALBUMIN 3.6 g/dl (3.4-5.0); ALK PHOS 108 U/L (45-117); ANION GAP 9 (8-16); BILIRUBIN,TOTAL 0.6 mg/dL (0.2-1.0); CALCIUM 10.1 mg/dL (8.5-10.1); CO2 32 mmol/L (21-32); CREATININE 0.6 mg/dL (0.55-1.02); GLUCOSE,RANDOM 106 mg/dL (74-106); SGOT/AST 27 U/L (15-37); SGPT/ALT 25 U/L (12-78); TOT PROT 7.6 g/dl (6.4-8.2)
[2016-12-14 17:59] LABS: TROPONIN I < 0.02 ng/ml (0.00-0.05)
[2016-12-14] MEDS ORDERED: CEFTRIAXONE 1 GM in DEXTROSE 5%-WATER - 50 ML IVPB ONE (18:16)
[2016-12-14] MEDS ORDERED: CEFTRIAXONE 50 ML ONE (18:23)
[2016-12-14] MEDS ORDERED: ACETAMINOPHEN 325 MG TABLET (FP) PO PRN (21:31)
[2016-12-14] MEDS ORDERED: ALPRAZolam 0.25 MG TABLET PO ONE (22:00)
[2016-12-14] MEDS: ATORVASTATIN CA 10 MG TABLET (FP) PO SCH (22:11)
[2016-12-14] MEDS: METOPROLOL TARTRATE 25 MG TABLET (FP) PO SCH (22:12)
[2016-12-14] MEDS: QUEtiapine FUMARATE 25 MG TABLET (FP) PO SCH (22:12)
[2016-12-15] MEDS ORDERED: ALPRAZolam 2 MG TABLET PO PRN (08:01)
[2016-12-15] MEDS ORDERED: ZOLPIDEM TARTRATE 5 MG TABLET PO PRN (08:01)
[2016-12-15] MEDS: PANTOPRAZOLE 20 MG TABLET (FP) PO SCH ×2 (08:32→10:08)
[2016-12-15] MEDS: FUROSEMIDE 20 MG TABLET (FP) PO SCH ×2 (08:32→10:07)
[2016-12-15] MEDS: METOPROLOL TARTRATE 25 MG TABLET (FP) PO SCH ×3 (08:32→21:04)
[2016-12-15] MEDS: ASPIRIN 81 MG CHEWABLE TABLETS PO SCH ×2 (08:32→10:07)
[2016-12-15] MEDS: CEFTRIAXONE 50 ML IVPB SCH ×2 (08:33→10:08)
[2016-12-15] MEDS: ENOXAPARIN NA (PORCINE) 40 MG/0.4 ML DISP.SYRIN SQ SCH ×2 (08:33→10:07)
[2016-12-15 08:54] LABS: BASOPHIL 0.7 % (0-2.0); EOSINOPHIL 0.9 % (0-4.5); MCHC 32.9 g/dl (32.0-36.0); MEAN CELL VOLUME 91.2 fl (80-96); MEAN PLT VOLUME 6.8 fl (7.5-11.1); NEUTROPHILS 60.7 % (42.8-82.8); PLATELET COUNT 291 K/MM3 (134-434); RDW 13.8 % (11.6-15.6); WHITE BLOOD COUNT 8.9 K/mm3 (4.0-10.0)
[2016-12-15 09:28] LABS: ALBUMIN 3.4 g/dl (3.4-5.0); ANION GAP 9 (8-16); CALCIUM 9.8 mg/dL (8.5-10.1); CHOLESTEROL 186 mg/dL (50-200); CO2 29 mmol/L (21-32); CREATININE 0.6 mg/dL (0.55-1.02); GLUCOSE,RANDOM 113 mg/dL (74-106); SGOT/AST 28 U/L (15-37); SGPT/ALT 26 U/L (12-78)
[2016-12-15 09:30] LABS: ALK PHOS 111 U/L (45-117); BILIRUBIN,TOTAL 0.6 mg/dL (0.2-1.0); LDL CHOLESTEROL (ONLY SJRH) 92 mg/dL (5-100); TOT PROT 7.4 g/dl (6.4-8.2); TROPONIN I < 0.02 ng/ml (0.00-0.05)
--- NOTE | 2016-12-15 09:44 | HP ---
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 Cardiovascular: Yes: HTN, Hyperlipdemia, Murmur Gastrointestinal: Yes: GERD - Smoking History Smoking history: Never smoked Have you smoked in the past 12 months: No - Alcohol/Substance Use Hx Alcohol Use: No Home Medications - Allergies Allergies/Adverse Reactions: Allergies Allergy/AdvReac Type Severity Reaction Status Date / Time No Known Allergies Allergy Verified 12/14/16 15:25 - Home Medications Home Medications: Ambulatory Orders Aspirin [ASA -] 81 mg PO DAILY 11/12/14 Quetiapine Fumarate [Seroquel -] 50 mg PO HS 11/12/14 Ibandronate Sodium [Boniva (Monthly)] 150 mg PO Q30D 01/25/15 Pravastatin Sodium [Pravachol -] 20 mg PO HS 02/14/15 Furosemide 20 mg PO DAILY 10/26/15 Memantine HCl/Donepezil HCl [Namzaric 21 mg-10 mg Capsule] 1 each PO DAILY 11/21 Omeprazole 20 mg PO DAILY 11/21/16 Rivastigmine 1 each TD DAILY 11/21/16 Alprazolam [Alprazolam ER] 1 mg PO BID PRN #30 capl 11/26/16 Metoprolol Tartrate [Lopressor -] 25 mg PO BID tablet 11/26/16 Polyethylene Glycol 3350 [Miralax 119 gm Btl -] 17 gm PO DAILY bottle 11/26/16 Zolpidem Tartrate [Ambien] 5 mg PO HS PRN #10 tablet MDD 1 11/26/16 Physical Examination Vital Signs: Vital Signs Temperature 98.0 F 12/15/16 06:00 Pulse Rate 65 12/15/16 06:00 Respiratory Rate 18 12/15/16 06:00 Blood Pressure 121/56 12/15/16 06:00 O2 Sat by Pulse Oximetry (%) 98 12/14/16 21:30 Labs: CBC, BMP 12/15/16 08:44 12/15/16 08:44 Problem List - Problems (1) Acute electrocardiogram changes Code(s): R94.31 - ABNORMAL ELECTROCARDIOGRAM [ECG] [EKG] (2) Complicated UTI (urinary tract infection) Code(s): N39.0 - URINARY TRACT INFECTION, SITE NOT SPECIFIED (3) Anxiety Code(s): F41.9 - ANXIETY DISORDER, UNSPECIFIED
[2016-12-15] MEDS: RIVASTIGMINE TD SCH (10:08)
[2016-12-15] MEDS: POLYETHYLENE GLYCOL 3350 119 GM BTL PO SCH (10:08)
[2016-12-15] MEDS: DONEPEZIL HCL PO SCH (10:08)
[2016-12-15] MEDS: MEMANTINE HCL PO SCH (10:08)
--- NOTE | 2016-12-15 12:13 | HP ---
DATE OF ADMISSION: DATE OF DICTATION: 12/15/2016 HISTORY OF PRESENT ILLNESS: This patient 86-year-old female admitted to telemetry when she was brought to the emergency room by the family secondary to having generalized weakness, decreased appetite, decreased urine output. PAST MEDICAL HISTORY: Dementia, anxiety, and osteoporosis. Patient was recently admitted to the hospital for a urinary tract infection also about 3 weeks ago. Workup in the emergency room was essentially normal except urinalysis shows evidence of urinary tract infection. Patient given antibiotics and admitted to telemetry as patient has new flipped T-wave changes in lateral leads. Case was discussed by me with the emergency room physician last night. I have held initially Xanax last night, but the patient got agitated in the morning and was given. HOME MEDICATIONS: Reviewed as documented in the emergency room documentation. ALLERGIES: Patient has no known allergies. FAMILY HISTORY: Nothing contributory. PAST SURGICAL HISTORY: Significant for surgery. REVIEW OF SYSTEMS: Unable to do it at present as patient is sleepy and also due to clinical condition. PHYSICAL EXAMINATION: General: Patient at present comfortable, sleeping, but arousable, not in distress. Neck: Supple. Lungs: Clear to auscultation. Carotid: Heart sounds regular. Abdomen: Soft, flat, is not distended. Extremities: No edema. LABORATORY DATA: Blood work done in the emergency room reviewed which showed normal white count and electrolytes are also essentially okay. Chest x-ray also done in the recovery room which did not show any acute pathology except there is a faint opacity in the right lung base that may be local infiltrate. Patient does not have any cough or fever. EKG, as I mentioned above, has flipped waves on the lateral leads. ASSESSMENT AND PLAN: Patient is admitted to telemetry due to electrocardiogram changes. I continued the antibiotics. Will repeat chest x-ray. I believe symptoms may be precipitated by her condition due to dementia. Will discuss with the family. Further recommendations will be guided by clinical course. I also discussed the case with the patient's nursing staff also. NAY RAMOS M.D. [id number]
--- NOTE | 2016-12-15 14:22 | CON.CARD ---
Cardiology Consult (text) - Consultation Consultation Note: CC: EKG abnormalities 86 yo with h/o htn, hl, heart murmur, ? on lasix, dementia, anxiety, recent uti p/w generalized weakness and noted to have recurrent uti. Hospital course complicated by new EKG abnormalities. Of note, bp initially on low end now improving. + weakness. As per son patient has had no change in urine pattern, fever, chills, vomiting , rash, or difficulty breathing. headache, sore throat, back pain, or dizziness. Possible recent poor po intake. Patient with history of dementia and per report the option of a PEG tube has been discussed but at this time the son is refusing. Per report denies chest pain, sob, orthopnea, pnd, le edema, bleeding, palps. PMHx/Pshx: per hpi, ovarian surgery. social hx: never smoker family hx: no premature CAD, Cardiomyopthy ros: per mn Ambulatory Orders Aspirin [ASA -] 81 mg PO DAILY 11/12/14 Quetiapine Fumarate [Seroquel -] 50 mg PO HS 11/12/14 Ibandronate Sodium [Boniva (Monthly)] 150 mg PO Q30D 01/25/15 Pravastatin Sodium [Pravachol -] 20 mg PO HS 02/14/15 Furosemide 20 mg PO DAILY 10/26/15 Memantine HCl/Donepezil HCl [Namzaric 21 mg-10 mg Capsule] 1 each PO DAILY 11/21 Omeprazole 20 mg PO DAILY 11/21/16 Rivastigmine 1 each TD DAILY 11/21/16 Alprazolam [Alprazolam ER] 1 mg PO BID PRN #30 capl 11/26/16 Metoprolol Tartrate [Lopressor -] 25 mg PO BID tablet 11/26/16 Polyethylene Glycol 3350 [Miralax 119 gm Btl -] 17 gm PO DAILY bottle 11/26/16 Zolpidem Tartrate [Ambien] 5 mg PO HS PRN #10 tablet MDD 1 11/26/16 Current Medications Acetaminophen (Tylenol -) 650 mg PO Q6H PRN PRN Reason: FEVER OR PAIN Alprazolam (Xanax -) 1 mg PO BID [facility] Aspirin (Asa -) 81 mg PO DAILY [facility] Last Admin: 12/15/16 10:07 Dose: Not Given Atorvastatin Calcium (Lipitor -) 10 mg PO HS [facility] Last Admin: 12/14/16 22:11 Dose: 10 mg Enoxaparin Sodium (Lovenox -) 40 mg SQ DAILY [facility] Last Admin: 12/15/16 10:07 Dose: Not Given Furosemide (Lasix -) 20 mg PO DAILY [facility] Last Admin: 12/15/16 10:07 Dose: Not Given Ceftriaxone Sodium (Rocephin 1gm Ivpb (Pre-Docked)) 50 mls @ 100 mls/hr IVPB DAILY [facility] Last Admin: 12/15/16 10:08 Dose: Not Given Metoprolol Tartrate (Lopressor -) 25 mg PO BID [facility] Last Admin: 12/15/16 10:07 Dose: Not Given Non-Formulary Medication (Memantine Hcl/Donepezil Hcl [Namzaric 21 Mg-10 Mg Capsule]) 1 each PO DAILY [facility] Last Admin: 12/15/16 10:08 Dose: Not Given Non-Formulary Medication (Rivastigmine [Rivastigmine]) 1 each TD DAILY [facility] Last Admin: 12/15/16 10:08 Dose: Not Given Pantoprazole Sodium (Protonix -) 20 mg PO DAILY [facility] Last Admin: 12/15/16 10:08 Dose: Not Given Polyethylene Glycol (Miralax (For Daily Use) -) 17 gm PO DAILY [facility] Last Admin: 12/15/16 10:08 Dose: Not Given Quetiapine Fumarate (Seroquel -) 50 mg PO HS [facility] Last Admin: 12/14/16 22:12 Dose: 50 mg Zolpidem Tartrate (Ambien -) 5 mg PO HS PRN Vital Signs - 24 hr 12/14/16 12/14/16 12/14/16 15:32 20:49 21:30 Temperature 98 F 97.8 F Pulse Rate 83 78 Pulse Rate [ 79 Right Radial] Respiratory 18 19 18 Rate Blood Pressure 126/69 106/58 Blood Pressure 124/70 [Left Arm] O2 Sat by Pulse 97 98 98 Oximetry (%) 12/15/16 12/15/16 12/15/16 02:05 06:00 10:00 Temperature 97.5 F L 98.0 F 97.8 F Pulse Rate 81 65 80 Pulse Rate [ Right Radial] Respiratory 20 18 18 Rate Blood Pressure 93/48 121/56 140/87 Blood Pressure [Left Arm] O2 Sat by Pulse 98 Oximetry (%) 12/15/16 13:54 Temperature 98 F Pulse Rate 69 Pulse Rate [ Right Radial] Respiratory 20 Rate Blood Pressure 123/61 Blood Pressure [Left Arm] O2 Sat by Pulse Oximetry (%) Intake & Output 12/13/16 12/14/16 12/15/16 12/16/16 07:59 07:59 07:59 07:59 Intake Total 300 Balance 300 Weight 130 lb nad, calm jvd flat, neck supple bibasilar crackles, poor effort rrr nl s1, s2 2/6 sys murmur at sternal border + bs soft nt nd ext without e/c/c no jaundice, diahphoresis, no carotid bruits CBC, BMP 12/15/16 08:44 12/15/16 08:44 Laboratory Tests 12/14/16 12/14/16 12/15/16 17:10 17:10 08:44 Magnesium 2.4 Total Bilirubin 0.6 AST 28 ALT 26 Alkaline Phosphatase 111 Troponin I < 0.02 < 0.02 Total Protein 7.6 7.4 Albumin 3.4 Triglycerides 63 Cholesterol 186 Total LDL Cholesterol 92 HDL Cholesterol 85 H EK/7: nsr, lad, bline prolonged qt. new anterolateral twi. tele: SR 60's. cxr: mild bilateral interstitial lung markings. focal density in rt lung base ( new). F/u cxr in 1 week recommended. 86 yo with h/o htn, hl, heart murmur, ? on lasix, dementia, anxiety, recent uti p/w generalized weakness and noted to have recurrent uti. Hospital course complicated by new EKG abnormalities. Of note, bp initially on low end now improving. EKG abnormality - patient with non-specific new twi. ASx. Troponins neg x 2. Would defer ischemic evaluation in patient given comorbidities. Bline qt prolongation on long-standing seroquel. Avoid additional qt prolonging meds when possible. - lyte repletion prn. - echo if here on saturday or as outpatient. htn - initially low, now improving. Con't metoprolol - con't asa for primary prevention. hl, con't statin ? on lasix - poor po intake and no LE edema. per nursing patient with rash at groin. Given recurrent UTI's and patient in diaper ?increased urination from lasix contributing?. Will stop. - daily weights, i/o's. heart murmur - no signs of signficant valvular disease on exam. - can consider echo as outpatient, or on saturday if patient still here. CXR abnormality - per pmd Stable from CV perspective, ok to d/c telemetry.
[2016-12-15] MEDS: QUEtiapine FUMARATE 25 MG TABLET (FP) PO SCH (21:00)
[2016-12-15] MEDS: ALPRAZolam 2 MG TABLET PO SCH (21:04)
[2016-12-15] MEDS: ATORVASTATIN CA 10 MG TABLET (FP) PO SCH (21:04)
[2016-12-15 21:56] VITALS: BP 133/78; PULSE 76; TEMP 97.8
[2016-12-16] MEDS: CEFTRIAXONE 50 ML IVPB SCH (10:09)
[2016-12-16] MEDS: ASPIRIN 81 MG CHEWABLE TABLETS PO SCH (10:10)
[2016-12-16] MEDS: METOPROLOL TARTRATE 25 MG TABLET (FP) PO SCH (10:10)
[2016-12-16] MEDS: ENOXAPARIN NA (PORCINE) 40 MG/0.4 ML DISP.SYRIN SQ SCH (10:10)
[2016-12-16] MEDS: PANTOPRAZOLE 20 MG TABLET (FP) PO SCH (10:10)
[2016-12-16] MEDS: RIVASTIGMINE TD SCH (10:22)
[2016-12-16] MEDS: DONEPEZIL HCL PO SCH (10:22)
[2016-12-16] MEDS: MEMANTINE HCL PO SCH (10:22)
[2016-12-16] MEDS: ALPRAZolam 2 MG TABLET PO SCH (10:30)
[2016-12-16] MEDS: POLYETHYLENE GLYCOL 3350 119 GM BTL PO SCH (10:30)
--- NOTE | 2016-12-16 12:23 | DS ---
Physical Examination Vital Signs: Vital Signs Temperature 97.8 F 12/15/16 21:35 Pulse Rate 76 12/15/16 21:35 Respiratory Rate 16 12/15/16 21:35 Blood Pressure 133/78 12/15/16 21:35 O2 Sat by Pulse Oximetry (%) 98 12/15/16 21:00 Findings/Remarks: awake/ comfortable eating well son at bedside afebrile no complains cardiology consult noted/ appreciated. Agree that no aggressive measures considering her commodities. Constitutional: Yes: No Distress, Calm Eyes: Yes: Conjunctiva Clear Neck: Yes: Supple Cardiovascular: Yes: Regular Rate and Rhythm Respiratory: Yes: Regular, CTA Bilaterally Gastrointestinal: Yes: Normal Bowel Sounds, Soft, Other Renal/: Yes: Other (bladder not distended) Edema: No Labs: CBC, BMP 12/15/16 08:44 12/15/16 08:44 Discharge Summary Reason For Visit: UTI Current Active Problems Acute electrocardiogram changes (Acute) Complicated UTI (urinary tract infection) (Acute) Failure to thrive (Acute) Hospital Course: 86-year-old female presents to the ED with complaints of generalized weakness, decreased appetite work up showed ekg changes cm -ve cardiology consultation taken no aggressive work up per cardiology- agree with same given abx emperically for uti u/c pending pt afebrile/ no wbc / no burning/ bladder not distended I believe its colonization. pts symptoms likely due to dementia pt stable for d/c son wants take her home I had long talk with pts son regarding all above now eating well also d/c to home of abx f/u in office with Dr. Jackson in 1-2 weeks Son in agreement. discussed with nursing staff also. time spend - 40 min in examining/ discussing/ coordating care . Condition: Stable - Instructions Disposition: HOME - Home Medications Comprehensive Discharge Medication List: Ambulatory Orders Aspirin [ASA -] 81 mg PO DAILY 11/12/14 Quetiapine Fumarate [Seroquel -] 50 mg PO HS 11/12/14 Ibandronate Sodium [Boniva (Monthly)] 150 mg PO Q30D 01/25/15 Pravastatin Sodium [Pravachol -] 20 mg PO HS 02/14/15 Furosemide 20 mg PO DAILY 10/26/15 Memantine HCl/Donepezil HCl [Namzaric 21 mg-10 mg Capsule] 1 each PO DAILY 11/21 Omeprazole 20 mg PO DAILY 11/21/16 Rivastigmine 1 each TD DAILY 11/21/16 Alprazolam [Alprazolam ER] 1 mg PO BID PRN #30 capl 11/26/16 Metoprolol Tartrate [Lopressor -] 25 mg PO BID tablet 11/26/16 Polyethylene Glycol 3350 [Miralax 119 gm Btl -] 17 gm PO DAILY bottle 11/26/16 Zolpidem Tartrate [Ambien] 5 mg PO HS PRN #10 tablet MDD 1 11/26/16 Acetaminophen [Tylenol .Regular Strength -] 650 mg PO Q6H PRN #0 tablet
--- NOTE | 2016-12-17 13:54 | EKG ---
Test Reason : Blood Pressure : / mmHG Vent. Rate : 085 BPM Atrial Rate : 085 BPM P-R Int : 174 ms QRS Dur : 070 ms QT Int : 402 ms P-R-T Axes : 071 -51 062 degrees QTc Int : 478 ms NORMAL SINUS RHYTHM LEFT AXIS DEVIATION NONSPECIFIC T WAVE ABNORMALITY PROLONGED QT ABNORMAL ECG WHEN COMPARED WITH ECG OF 14-DEC-2016 15:57, T WAVE VARIATION Confirmed by ELZBIETA LINTON, NURIS ([id number]) on 12/17/2016 1:54:00 PM Referred By: Magdalena ENAMORADO Confirmed By:NURIS RUFF MD
--- NOTE | 2016-12-17 13:58 | EKG ---
Test Reason : Blood Pressure : / mmHG Vent. Rate : 086 BPM Atrial Rate : 086 BPM P-R Int : 162 ms QRS Dur : 072 ms QT Int : 398 ms P-R-T Axes : 062 -40 080 degrees QTc Int : 476 ms NORMAL SINUS RHYTHM LEFT AXIS DEVIATION T WAVE ABNORMALITY, CONSIDER ANTERIOR ISCHEMIA PROLONGED QT ABNORMAL ECG WHEN COMPARED WITH ECG OF 23-NOV-2016 12:06, T WAVE INVERSION MORE EVIDENT IN ANTERIOR LEADS Confirmed by NURIS RUFF MD ([id number]) on 12/17/2016 1:58:14 PM Referred By: Confirmed By:NURIS RUFF MD
== END 2016-12-16 13:25 | disposition home or self-care (01) | DRG 884 ==
LOC: JER 15:24 → JERBED 19:34 → J4W 21:07
PROVIDERS: ADMIT Internal Medicine; ATTEND Internal Medicine
DX: F03.90 Unspecified dementia, unspecified severity, without behavioral disturbance, psychotic disturbance, mood disturbance, and anxiety (principal); N39.0 Urinary tract infection, site not specified; R63.0 Anorexia; R53.1 Weakness; R62.7 Adult failure to thrive; I10 Essential (primary) hypertension; K59.00 Constipation, unspecified; R94.31 Abnormal electrocardiogram [ECG] [EKG]; K21.9 Gastro-esophageal reflux disease without esophagitis
CPT/HCPCS: 36415; 71010-TC; 74000-TC; 80053; 80061; 81003; 81015; 82550; 83605; 83721; 83735; 84484; 85025; 87086; 87186; 93005; 93010; 99283-25; 99285-25

== ENCOUNTER 2017-09-13 19:55 | Observation (INO) | payer OTHER ==
[2017-09-13 20:50] LABS: BASO % 0.6 % (0-2.0); EOS % 0.6 % (0-4.5); HEMATOCRIT 44.6 % (32.4-45.2); HEMOGLOBIN 14.7 GM/dL (10.7-15.3); MCH 30.1 pg (25.7-33.7); MCHC 32.9 g/dl (32.0-36.0); MEAN CELL VOLUME 91.5 fl (80-96); MONO % 10.4 % (3.8-10.2); NEUT % 64.4 % (42.8-82.8); PLATELET COUNT 300 K/MM3 (134-434); RBC 4.88 M/mm3 (3.60-5.2); RDW 13.8 % (11.6-15.6); WHITE BLOOD COUNT 10.9 K/mm3 (4.0-10.0)
[2017-09-13 20:57] LABS: URINE APPEARANCE CLOUDY; URINE BILIRUBIN NEGATIVE (<2.0 mg/dL); URINE BLOOD NEGATIVE (NEGATIVE); URINE COLOR AMBER; URINE GLUCOSE (UA) NEGATIVE (NEGATIVE); URINE KETONE TRACE (NEGATIVE); URINE LEUK ESTERASE TRACE (NEGATIVE); URINE NITRITE POSITIVE (NEGATIVE); URINE PROTEIN NEGATIVE (NEGATIVE)
[2017-09-13 21:00] LABS: EPI CELLS RARE /HPF (FEW); URINE BACTERIA RARE /hpf (NONE SEEN); URINE MUCUS RARE
[2017-09-13 21:04] LABS: INR 0.97 (0.82-1.09)
[2017-09-13 21:07] LABS: ACTIVATED PTT 36.7 SECONDS (26.9-34.4)
[2017-09-13 21:17] LABS: ALBUMIN 3.3 g/dl (3.4-5.0); ANION GAP 9 (8-16); BILIRUBIN,TOTAL 0.4 mg/dL (0.2-1.0); BLOOD UREA NITROGEN 13 mg/dL (7-18); CALCIUM 9.3 mg/dL (8.5-10.1); CHLORIDE 103 mmol/L (98-107); CO2 28 mmol/L (21-32); CREATININE 0.5 mg/dL (0.55-1.02); GLUCOSE,RANDOM 98 mg/dL (74-106); MAGNESIUM 2.2 mg/dL (1.8-2.4); POTASSIUM 4.1 mmol/L (3.5-5.1); SGOT/AST 20 U/L (15-37); SGPT/ALT 22 U/L (12-78); SODIUM 140 mmol/L (136-145); TOT PROT 7.2 g/dl (6.4-8.2)
[2017-09-13 21:26] LABS: ALK PHOS 98 U/L (45-117)
[2017-09-13 22:05] LABS: N-TERMINAL BNP 148.43 pg/ml (5-450)
--- NOTE | 2017-09-13 22:33 | PDOC ---
History of Present Illness <Lucius Palomo - Last Filed: 09/14/17 01:47> <Elizabeth Fowler - Last Filed: 09/14/17 02:17> - General Chief Complaint: Lethargy Stated Complaint: LETHARGIC Time Seen by Provider: 09/13/17 21:44 Past History <Lucius Palomo - Last Filed: 09/14/17 01:47> - Past Medical History Cardiac Disorders: Yes (heart murmur) COPD: No Dementia: Yes HTN: Yes Psychiatric Problems: Yes (anxiety) - Surgical History Abdominal Surgery: Yes (OVARIAN) - Immunization History Immunization Up to Date: Yes - Suicide/Smoking/Psychosocial Hx Smoking History: Never smoked Have you smoked in the past 12 months: No Hx Alcohol Use: No Drug/Substance Use Hx: No Substance Use Type: None Hx Substance Use Treatment: No <Elizabeth Fowler - Last Filed: 09/14/17 02:17> - Past Medical History Allergies/Adverse Reactions: Allergies Allergy/AdvReac Type Severity Reaction Status Date / Time No Known Allergies Allergy Verified 09/13/17 20:21 Home Medications: Ambulatory Orders Pravastatin Sodium [Pravachol -] 20 mg PO HS 02/14/15 Furosemide 20 mg PO DAILY 10/26/15 Omeprazole 20 mg PO DAILY 11/21/16 Alprazolam [Alprazolam ER] 2 mg PO BID PRN 09/13/17 Haloperidol 2 mg PO PRN 09/13/17 Memantine HCl/Donepezil HCl [Namzaric 21 mg-10 mg Capsule] 1 each PO DAILY 09/13 Metoprolol Tartrate [Lopressor -] 50 mg PO BID 09/13/17 Mirtazapine [Remeron -] 15 mg PO DAILY 09/13/17 Zolpidem Tartrate [Ambien] 10 mg PO HS PRN MDD 1 09/13/17 *Physical Exam - Vital Signs Last Vital Signs Temp Pulse Resp BP Pulse Ox 98.5 F 83 18 104/56 98 09/13/17 20:00 09/13/17 21:18 09/13/17 21:18 09/13/17 21:18 09/13/17 21:18 <Lucius Palomo - Last Filed: 09/14/17 01:47> - Vital Signs Last Vital Signs Temp Pulse Resp BP Pulse Ox 98.5 F 83 18 104/56 98 09/13/17 20:00 09/13/17 21:18 09/13/17 21:18 09/13/17 21:18 09/13/17 21:18 <Elizabeth Fowler - Last Filed: 09/14/17 02:17> Heart Score/ECG Review #1 09/13/17 22:35 Twelve-lead EKG was performed and reviewed by me. Sinus rhythm, rate 85. Left axis deviation. No ST elevations or T-wave inversions. <Elizabeth Fowler - Last Filed: 09/14/17 02:17> ED Treatment Course - LABORATORY CBC & Chemistry Diagram: 09/13/17 20:40 09/13/17 20:40 - ADDITIONAL ORDERS Additional order review: Laboratory Results 09/13/17 09/13/17 09/13/17 20:50 20:40 20:40 PT with INR 11.00 INR 0.97 PTT (Actin FS) 36.7 H Sodium 140 Potassium 4.1 Chloride 103 Carbon Dioxide 28 Anion Gap 9 BUN 13 Creatinine 0.5 L Creat Clearance w eGFR > 60 Random Glucose 98 Calcium 9.3 Magnesium 2.2 Total Bilirubin 0.4 D AST 20 ALT 22 Alkaline Phosphatase 98 Troponin I < 0.02 B-Natriuretic Peptide 148.43 Total Protein 7.2 Albumin 3.3 L TSH 1.30 Urine Color Vikki Urine Appearance Cloudy Urine pH 5.0 Ur Specific [place] 1.016 Urine Protein Negative Urine Glucose (UA) Negative Urine Ketones Trace H Urine Blood Negative Urine Nitrite Positive Urine Bilirubin Negative Urine Urobilinogen 2.0 H Ur Leukocyte Esterase Trace Urine WBC (Auto) 9 Urine RBC (Auto) 1 Ur Epithelial Cells Rare Urine Bacteria Rare Urine Mucus Rare 09/13/17 20:40 PT with INR INR PTT (Actin FS) Sodium Potassium Chloride Carbon Dioxide Anion Gap BUN Creatinine Creat Clearance w eGFR Random Glucose Calcium Magnesium Total Bilirubin AST ALT Alkaline Phosphatase Troponin I B-Natriuretic Peptide Cancelled Total Protein Albumin TSH Urine Color Urine Appearance Urine pH Ur Specific [place] Urine Protein Urine Glucose (UA) Urine Ketones Urine Blood Urine Nitrite Urine Bilirubin Urine Urobilinogen Ur Leukocyte Esterase Urine WBC (Auto) Urine RBC (Auto) Ur Epithelial Cells Urine Bacteria Urine Mucus 09/13/17 20:40 RBC 4.88 MCV 91.5 MCHC 32.9 RDW 13.8 MPV 7.0 L Neutrophils % 64.4 Lymphocytes % 24.0 Monocytes % 10.4 H Eosinophils % 0.6 Basophils % 0.6 <Lucius Palomo - Last Filed: 09/14/17 01:47> - LABORATORY CBC & Chemistry Diagram: 09/13/17 20:40 09/13/17 20:40 - ADDITIONAL ORDERS Additional order review: Laboratory Results 09/13/17 09/13/17 09/13/17 20:50 20:40 20:40 PT with INR 11.00 INR 0.97 PTT (Actin FS) 36.7 H Sodium 140 Potassium 4.1 Chloride 103 Carbon Dioxide 28 Anion Gap 9 BUN 13 Creatinine 0.5 L Creat Clearance w eGFR > 60 Random Glucose 98 Calcium 9.3 Magnesium 2.2 Total Bilirubin 0.4 D AST 20 ALT 22 Alkaline Phosphatase 98 Troponin I < 0.02 B-Natriuretic Peptide 148.43 Total Protein 7.2 Albumin 3.3 L TSH 1.30 Urine Color Vikki Urine Appearance Cloudy Urine pH 5.0 Ur Specific [place] 1.016 Urine Protein Negative Urine Glucose (UA) Negative Urine Ketones Trace H Urine Blood Negative Urine Nitrite Positive Urine Bilirubin Negative Urine Urobilinogen 2.0 H Ur Leukocyte Esterase Trace Urine WBC (Auto) 9 Urine RBC (Auto) 1 Ur Epithelial Cells Rare Urine Bacteria Rare Urine Mucus Rare 09/13/17 20:40 PT with INR INR PTT (Actin FS) Sodium Potassium Chloride Carbon Dioxide Anion Gap BUN Creatinine Creat Clearance w eGFR Random Glucose Calcium Magnesium Total Bilirubin AST ALT Alkaline Phosphatase Troponin I B-Natriuretic Peptide Cancelled Total Protein Albumin TSH Urine Color Urine Appearance Urine pH Ur Specific [place] Urine Protein Urine Glucose (UA) Urine Ketones Urine Blood Urine Nitrite Urine Bilirubin Urine Urobilinogen Ur Leukocyte Esterase Urine WBC (Auto) Urine RBC (Auto) Ur Epithelial Cells Urine Bacteria Urine Mucus 09/13/17 20:40 RBC 4.88 MCV 91.5 MCHC 32.9 RDW 13.8 MPV 7.0 L Neutrophils % 64.4 Lymphocytes % 24.0 Monocytes % 10.4 H Eosinophils % 0.6 Basophils % 0.6 - RADIOLOGY Radiology Studies Ordered: Category Date Time Status CHEST X-RAY PORTABLE* [RAD] Stat Radiology 09/13/17 20:17 Taken <Elizabeth Fowler - Last Filed: 09/14/17 02:17> Medical Decision Making - Medical Decision Making 09/14/17 01:47 Microblog admission sent @1:11am. Secondary nudge to hospitalist @1:42am. Secondary microblog sent @1:43am. <Lucius Palomo - Last Filed: 09/14/17 01:47> - Medical Decision Making 09/14/17 02:10 87-year-old female multiple medical problems presents emergency Department with increasing lethargy, poor appetite, cough and chest pain earlier today. History is limited due to patient's mental status and dementia. Vitals are unremarkable , pt is afebrile rectally. EKG nonischemic. Workup remarkable for leukocytosis to 10.9 and nitrite positive urinalysis consistent with UTI. Review of microbiology reveals previous ESBL organisms and thus meropenem was ordered. CT head negative for acute pathology. Given lethargy, UTI and report of chest pain , case discussed with Dr. Cheatham directly and verbal signout was given over the phone at 2:[address] Cheatham accepts patient to a telemetry obs admission. Case discussed in detail with admitting physician including history, physical exam and ancillary studies. Admitting physician has assumed care for the patient, will follow all pending diagnostics and will complete the evaluation and treatment. <Elizabeth Fowler - Last Filed: 09/14/17 02:17> *DC/Admit/Observation/Transfer <Lucius Palomo - Last Filed: 09/14/17 01:47> - Discharge Dispostion Admit: Yes - Attestations Physician Attestion: 09/14/17 02:17 I, Dr. Elizabeth Fowler MD, attest that this document has been prepared under my direction and personally reviewed by me in its entirety. I further attest, that it accurately reflects all work, treatment, procedures and medical decision -making performed by me. <Elizabeth Fowler - Last Filed: 09/14/17 02:17> Diagnosis at time of Disposition: Altered mental status, Complicated UTI (urinary tract infection), Chest pain - Discharge Dispostion Condition at time of disposition: Stable - Referrals Referrals: Geeta Jackson MD [Primary Care Provider] - - Patient Instructions - Post Discharge Activity
[2017-09-13] MEDS ORDERED: WATER IVPB ONE (23:19)
[2017-09-13] MEDS ORDERED: DEXTROSE 5% IVPB ONE (23:19)
[2017-09-13] MEDS ORDERED: MEROPENEM IVPB ONE (23:19)
[2017-09-14] MEDS ORDERED: guaiFENesin/CODEINE 5 ML UNIT-DOSE CUPS PO PRN (03:33)
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
[2017-09-14] MEDS ORDERED: ALPRAZolam 2 MG TABLET PO PRN (03:58)
[2017-09-14] MEDS: SODIUM CHLORIDE 1,000 ML IV SCH (05:33)
--- NOTE | 2017-09-14 05:34 | PN ---
Teaching Attending Note Name of Resident: Alesha Keen ATTENDING PHYSICIAN STATEMENT I saw and evaluated the patient. I reviewed the resident's note and discussed the case with the resident. I agree with the resident's findings and plan as documented. SUBJECTIVE: OBJECTIVE: ASSESSMENT AND PLAN: The patient is a 87 year old female with a PMH of ESBL UTI, dementia, HTN, HLD who was brought to the hospital by family due to cough for the past 3 days. He daughter who is present at bedside states that her mother started having dry cough 3 days ago. We admitted the patient for AMS due to UTI, possible PNA. Acute change in mental status 2/2 infectin UTI vs atypical pneumonia -f/u with urine cultures -patient was givent Meropenem -will continue abx -ID consulted -continue fluids NS at 42 cc/hr -will f/u CXR official report -ordered Flu swab - obtain Legionella ag HTN: -cont home Metoprolol Dementia: -continue home meds
[2017-09-14] MEDS ORDERED: HEPARIN NA (PORCINE) 5,000 UNITS/ML 1ML VIAL ONE (06:27)
[2017-09-14] MEDS: HEPARIN NA (PORCINE) 5,000 UNITS/ML 1ML VIAL SQ SCH ×3 (06:34→22:39)
[2017-09-14 06:37] LABS: BASO % 0.5 % (0-2.0); EOS % 0.8 % (0-4.5); HEMATOCRIT 42.1 % (32.4-45.2); HEMOGLOBIN 14.5 GM/dL (10.7-15.3); MCH 31.3 pg (25.7-33.7); MCHC 34.4 g/dl (32.0-36.0); MEAN CELL VOLUME 91.1 fl (80-96); MEAN PLT VOLUME 7.1 fl (7.5-11.1); MONO % 13.3 % (3.8-10.2); NEUT % 66.4 % (42.8-82.8); PLATELET COUNT 315 K/MM3 (134-434); RBC 4.62 M/mm3 (3.60-5.2); RDW 13.6 % (11.6-15.6); WHITE BLOOD COUNT 7.8 K/mm3 (4.0-10.0)
[2017-09-14 07:05] LABS: ALBUMIN 3.3 g/dl (3.4-5.0); BLOOD UREA NITROGEN 12 mg/dL (7-18); CALCIUM 9.5 mg/dL (8.5-10.1); CO2 31 mmol/L (21-32); GLUCOSE,RANDOM 99 mg/dL (74-106)
--- NOTE | 2017-09-14 07:44 | PN ---
Progress Note (short form) - Note Progress Note: ID Full note dictated Spoke at length with daughter Patient is home and severely demented total care The reason they brought her was severe couph She felt warm but no temp taken home Selected Entries 09/14/17 03:18 Temperature 98 F Pulse Rate [ 86 Apical] Respiratory 15 Rate Blood Pressure 117/57 [Right Arm] O2 Sat by Pulse 97 Oximetry (%) Laboratory Tests 09/13/17 09/13/17 09/13/17 20:40 20:40 20:50 WBC 10.9 H Hgb Plt Count BUN 13 Creatinine 0.5 L Urine WBC (Auto) 9 Urine RBC (Auto) 1 09/14/17 06:20 WBC 7.8 Hgb 14.5 Plt Count 315 BUN Creatinine Urine WBC (Auto) Urine RBC (Auto) Microbiology 12/14/16 17:01 Urine - Urine Clean Catch Urine Culture - Final Escherichia Coli [employer] Specialist Assessment Acute bronchitis ? 

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
[2017-09-14 08:18] LABS: ALK PHOS 97 U/L (45-117)
[2017-09-14 08:19] LABS: ANION GAP 5 (8-16); CHLORIDE 104 mmol/L (98-107); POTASSIUM 3.9 mmol/L (3.5-5.1); SODIUM 140 mmol/L (136-145)
[2017-09-14] MEDS ORDERED: PANTOPRAZOLE 40 MG TABLET (FP) ONE (08:40)
[2017-09-14] MEDS ORDERED: CEFTRIAXONE 1 GM/50 ML BAG ONE (08:40)
[2017-09-14 09:07] LABS: BILIRUBIN,TOTAL 0.4 mg/dL (0.2-1.0); CREATININE 0.5 mg/dL (0.55-1.02); SGOT/AST 16 U/L (15-37); SGPT/ALT 21 U/L (12-78); TOT PROT 6.9 g/dl (6.4-8.2)
[2017-09-14] MEDS: METOPROLOL TARTRATE 50 MG TABLET (FP) PO SCH ×2 (09:29→22:39)
[2017-09-14] MEDS: CEFTRIAXONE 1 GM in DEXTROSE 5%-WATER - 50 ML IVPB SCH (09:30)
[2017-09-14] MEDS: PANTOPRAZOLE 20 MG TABLET (FP) PO SCH (09:30)
--- NOTE | 2017-09-14 11:35 | EKG ---
Test Reason : Blood Pressure : / mmHG Vent. Rate : 085 BPM Atrial Rate : 085 BPM P-R Int : 162 ms QRS Dur : 072 ms QT Int : 352 ms P-R-T Axes : 067 -41 057 degrees QTc Int : 418 ms SINUS RHYTHM WITH PREMATURE ATRIAL COMPLEXES LEFT AXIS DEVIATION ABNORMAL ECG WHEN COMPARED WITH ECG OF 15-DEC-2016 09:05, PREMATURE ATRIAL COMPLEXES ARE NOW PRESENT NONSPECIFIC T WAVE ABNORMALITY NO LONGER EVIDENT IN INFERIOR LEADS NONSPECIFIC T WAVE ABNORMALITY HAS REPLACED INVERTED T WAVES IN ANTERIOR LEADS Confirmed by LINK LINTON, MITA ([id number]) on 09/14/2017 11:35:18 AM Referred By: Confirmed By:MITA MAZA MD
[2017-09-14] MEDS: ATORVASTATIN CA 10 MG TABLET (FP) PO SCH (22:39)
[2017-09-15] MEDS: SODIUM CHLORIDE 1,000 ML IV SCH
[2017-09-15 04:33] VITALS: BMI 23.8
[2017-09-15] MEDS: HEPARIN NA (PORCINE) 5,000 UNITS/ML 1ML VIAL SQ SCH ×3 (05:23→22:12)
[2017-09-15] MEDS ORDERED: cefTRIAXone SODIUM 1 GM VIAL ONE (08:54)
[2017-09-15] MEDS ORDERED: DEXTROSE 5%-WATER - 50 ML IVPB ONE (08:55)
[2017-09-15] MEDS: METOPROLOL TARTRATE 50 MG TABLET (FP) PO SCH ×2 (09:06→22:11)
[2017-09-15] MEDS: PANTOPRAZOLE 20 MG TABLET (FP) PO SCH (09:06)
[2017-09-15] MEDS: CEFTRIAXONE 1 GM in DEXTROSE 5%-WATER - 50 ML IVPB SCH (09:13)
--- NOTE | 2017-09-15 09:29 | PN ---
Progress Note, Physician Chief Complaint: Remains stable but still couphs NO fevers Ceftriaxone day 2 - Current Medication List Current Medications: Active Medications Alprazolam (Xanax -) 2 mg PO BID PRN PRN Reason: ANXIETY Last Admin: 09/15/17 00:35 Dose: 2 mg Atorvastatin Calcium (Lipitor -) 10 mg PO HS [facility] Last Admin: 09/14/17 22:39 Dose: 10 mg Guaifenesin/Codeine Phosphate (Robitussin Ac -) 5 ml PO TID PRN PRN Reason: COUGH Heparin Sodium (Porcine) (Heparin -) 5,000 unit SQ TID [facility] Last Admin: 09/15/17 05:23 Dose: 5,000 unit Sodium Chloride (Normal Saline -) 1,000 mls @ 42 mls/hr IV ASDIR [facility] Last Admin: 09/15/17 00:00 Dose: 42 mls/hr Ceftriaxone Sodium 1 gm/ (Dextrose) 50 mls @ 200 mls/hr IVPB DAILY [facility] Last Admin: 09/15/17 09:13 Dose: 200 mls/hr Metoprolol Tartrate (Lopressor -) 50 mg PO BID [facility] Last Admin: 09/15/17 09:06 Dose: Not Given Pantoprazole Sodium (Protonix -) 20 mg PO DAILY [facility] Last Admin: 09/15/17 09:06 Dose: 20 mg - Objective Vital Signs: Vital Signs Temperature 97.5 F L 09/15/17 04:53 Pulse Rate 60 09/15/17 04:53 Respiratory Rate 18 09/15/17 04:53 Blood Pressure 100/40 09/15/17 04:53 O2 Sat by Pulse Oximetry (%) 95 09/14/17 23:00 Constitutional: Yes: No Distress HENT: Yes: WNL, Atraumatic, Tonsillar Exudate Neck: Yes: Supple Cardiovascular: Yes: S1, S2 Respiratory: Yes: WNL, Regular, CTA Bilaterally Gastrointestinal: Yes: WNL, Normal Bowel Sounds, Soft. 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
[2017-09-15] MEDS ORDERED: ALPRAZolam 2 MG TABLET PO PRN (11:07)
[2017-09-15] MEDS ORDERED: SODIUM CHLORIDE 1,000 ML IV SCH (11:07)
--- NOTE | 2017-09-15 11:52 | PN ---
Progress Note, Physician Chief Complaint: Events noted daughter at bedside Noted that pt coughs with meals - Current Medication List Current Medications: Active Medications Alprazolam (Xanax -) 1 mg PO Q8H PRN PRN Reason: ANXIETY Atorvastatin Calcium (Lipitor -) 10 mg PO HS [facility] Last Admin: 09/14/17 22:39 Dose: 10 mg Guaifenesin/Codeine Phosphate (Robitussin Ac -) 5 ml PO TID PRN PRN Reason: COUGH Heparin Sodium (Porcine) (Heparin -) 5,000 unit SQ TID [facility] Last Admin: 09/15/17 05:23 Dose: 5,000 unit Ceftriaxone Sodium 1 gm/ (Dextrose) 50 mls @ 200 mls/hr IVPB DAILY [facility] Last Admin: 09/15/17 09:13 Dose: 200 mls/hr Sodium Chloride (Normal Saline -) 1,000 mls @ 80 mls/hr IV ASDIR [facility] Metoprolol Tartrate (Lopressor -) 50 mg PO BID [facility] Last Admin: 09/15/17 09:06 Dose: Not Given Pantoprazole Sodium (Protonix -) 20 mg PO DAILY [facility] Last Admin: 09/15/17 09:06 Dose: 20 mg - Objective Vital Signs: Vital Signs Temperature 97.5 F L 09/15/17 04:53 Pulse Rate 60 09/15/17 04:53 Respiratory Rate 18 09/15/17 04:53 Blood Pressure 100/40 09/15/17 04:53 O2 Sat by Pulse Oximetry (%) 95 09/14/17 23:00 Constitutional: Yes: No Distress Cardiovascular: Yes: Regular Rate and Rhythm Respiratory: Yes: Diminished Gastrointestinal: Yes: Normal Bowel Sounds, Soft. No: Tenderness Edema: No Labs: CBC, BMP 09/14/17 06:20 09/14/17 06:20 INR, PTT INR 0.97 (0.82-1.09) 09/13/17 20:40 Problem List - Problems (1) Acute bronchitis Code(s): J20.9 - ACUTE BRONCHITIS, UNSPECIFIED (2) Anxiety Code(s): F41.9 - ANXIETY DISORDER, UNSPECIFIED (3) Dementia Code(s): F03.90 - UNSPECIFIED DEMENTIA WITHOUT BEHAVIORAL DISTURBANCE Qualifiers: Dementia type: Alzheimer's disease (4) Failure to thrive Code(s): HQQ6590 - (5) Hypertension Code(s): I10 - ESSENTIAL (PRIMARY) HYPERTENSION Assessment/Plan PLAN ID eval noted change to puree diet possible aspiration swallow eval iv antibiotics I have had conversations with the family, especially pt's son who she lives with about advance directives-- he wants her to be comfortable, he does not want feeding tube mental status at baseline-- advanced dementia, agitated behavior at times
[2017-09-15] MEDS: DEXTROSE 5%-NORMAL SALINE 1,000 ML IV SCH (12:46)
--- NOTE | 2017-09-15 14:47 | EKG ---
Test Reason : Blood Pressure : / mmHG Vent. Rate : 065 BPM Atrial Rate : 065 BPM P-R Int : 192 ms QRS Dur : 080 ms QT Int : 426 ms P-R-T Axes : 063 -37 046 degrees QTc Int : 443 ms SINUS RHYTHM WITH MARKED SINUS ARRHYTHMIA LEFT AXIS DEVIATION ABNORMAL ECG WHEN COMPARED WITH ECG OF 13-SEP-2017 20:50, PREMATURE ATRIAL COMPLEXES ARE NO LONGER PRESENT Confirmed by LINK LINTON, MITA ([id number]) on 09/15/2017 2:47:45 PM Referred By: Magdalena ENAMORADO Confirmed By:MITA MAZA MD
[2017-09-15] MEDS: ATORVASTATIN CA 10 MG TABLET (FP) PO SCH (22:12)
[2017-09-15] MEDS ORDERED: ACETAMINOPHEN 325 MG TABLET (FP) PO ONE (23:15)
[2017-09-16] MEDS ORDERED: MELATONIN 5 MG TABLETS PO ONE (00:26)
[2017-09-16] MEDS ORDERED: PT OWN MED DRAWER 7, Y5N ONE (00:41)
[2017-09-16] MEDS ORDERED: ALPRAZolam 0.25 MG TABLET PO ONE (02:19)
[2017-09-16] MEDS: HEPARIN NA (PORCINE) 5,000 UNITS/ML 1ML VIAL SQ SCH ×3 (05:26→23:11)
[2017-09-16] MEDS ORDERED: DEXTROSE 5%-WATER - 50 ML IVPB ONE (10:10)
[2017-09-16] MEDS ORDERED: cefTRIAXone SODIUM 1 GM VIAL ONE (10:10)
[2017-09-16] MEDS: CEFTRIAXONE 1 GM in DEXTROSE 5%-WATER - 50 ML IVPB SCH (10:25)
[2017-09-16] MEDS: METOPROLOL TARTRATE 50 MG TABLET (FP) PO SCH ×3 (10:25→23:11)
[2017-09-16] MEDS: PANTOPRAZOLE 20 MG TABLET (FP) PO SCH (10:25)
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
--- NOTE | 2017-09-16 12:03 | PN ---
Progress Note (short form) - Note Progress Note: Pt seen/ examined chart reviewed Son/ daughter -- at bedside no distress cough + afebrile Vital Signs Temp 98.0 F 09/16/17 10:00 Pulse 77 09/16/17 10:00 Resp 16 09/16/17 10:00 BP 111/74 09/16/17 10:00 Pulse Ox 97 09/16/17 10:00 Intake & Output 09/15/17 09/16/17 09/16/17 23:59 11:59 23:59 Intake Total 1899 581 Balance 1899 581 Intake: IV 1299 581 D5-Ns - 1,000 ml @ 83 mls 415 581 /hr IV ASDIR [facility] Rx#: [id number] Normal Saline - 1,000 ml 84 @ 42 mls/hr IV ASDIR [facility] Rx#:[id number] Normal Saline - 1,000 ml 800 @ 80 mls/hr IV ASDIR [facility] Rx#:[id number] Oral 600 Other: Voiding Method Diaper Diaper # Unmeasured Voids Void 2 1 Bowel Movement No No # Bowel Movements 1 Active Medications Alprazolam (Xanax -) 1 mg PO Q8H PRN PRN Reason: ANXIETY Atorvastatin Calcium (Lipitor -) 10 mg PO HS [facility] Last Admin: 09/15/17 22:12 Dose: 10 mg Guaifenesin/Codeine Phosphate (Robitussin Ac -) 5 ml PO TID PRN PRN Reason: COUGH Heparin Sodium (Porcine) (Heparin -) 5,000 unit SQ TID [facility] Last Admin: 09/16/17 05:26 Dose: 5,000 unit Ceftriaxone Sodium 1 gm/ (Dextrose) 50 mls @ 200 mls/hr IVPB DAILY [facility] Last Admin: 09/16/17 10:25 Dose: 200 mls/hr Dextrose/Sodium Chloride (D5-Ns -) 1,000 mls @ 83 mls/hr IV ASDIR [facility] Last Admin: 09/15/17 12:46 Dose: 83 mls/hr Metoprolol Tartrate (Lopressor -) 50 mg PO BID [facility] Last Admin: 09/16/17 10:30 Dose: Not Given Pantoprazole Sodium (Protonix -) 20 mg PO DAILY [facility] Last Admin: 09/16/17 10:25 Dose: 20 mg CBC, BMP 09/14/17 06:20 09/14/17 06:20 Microbiology 09/13/17 20:50 Urine Culture - Final Urine - Urine Clean Catch Escherichia Coli Esbl Radiology Assistant 09/14/17 12:41 Blood Culture - Preliminary Blood - Peripheral Venous NO GROWTH OBTAINED AFTER 24 HOURS, INCUBATION TO CONTINUE FOR 4 DAYS. 09/14/17 12:41 Blood Culture - Preliminary Blood - Peripheral Venous NO GROWTH OBTAINED AFTER 24 HOURS, INCUBATION TO CONTINUE FOR 4 DAYS. Physical Constitutional: Yes: No Distress. calm Cardiovascular: Yes: Regular Rate and Rhythm Respiratory: Yes: Diminished Gastrointestinal: Yes: Normal Bowel Sounds, Soft. No: Tenderness Edema: No Neuro- Awake Problem List - Problems (1) Acute bronchitis Code(s): J20.9 - ACUTE BRONCHITIS, UNSPECIFIED (2) Anxiety Code(s): F41.9 - ANXIETY DISORDER, UNSPECIFIED (3) Dementia Code(s): F03.90 - UNSPECIFIED DEMENTIA WITHOUT BEHAVIORAL DISTURBANCE Qualifiers: Dementia type: Alzheimer's disease (4) Failure to thrive Code(s): AHO4166 - (5) Hypertension Code(s): I10 - ESSENTIAL (PRIMARY) HYPERTENSION Assessment/Plan Better ABx swallow eval - noted mental status at baseline-- advanced dementia, agitated behavior at times . monitor today if stable- consider d/c tomorrow discussed with family will follow
[2017-09-16] MEDS: DEXTROSE 5%-NORMAL SALINE 1,000 ML IV SCH (14:30)
[2017-09-16] MEDS: ATORVASTATIN CA 10 MG TABLET (FP) PO SCH (23:11)
[2017-09-17] MEDS: DEXTROSE 5%-NORMAL SALINE 1,000 ML IV SCH ×2 (01:57→14:04)
[2017-09-17] MEDS: HEPARIN NA (PORCINE) 5,000 UNITS/ML 1ML VIAL SQ SCH ×2 (06:48→14:02)
[2017-09-17] MEDS: METOPROLOL TARTRATE 50 MG TABLET (FP) PO SCH (09:52)
[2017-09-17] MEDS: PANTOPRAZOLE 20 MG TABLET (FP) PO SCH (09:52)
--- NOTE | 2017-09-17 11:09 | PN ---
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
--- NOTE | 2017-09-17 11:42 | DS ---
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, newly diagnosed (Acute) Condition: Stable - Instructions Referrals: Geeta Jackson MD [Primary Care Provider] - - Home Medications Comprehensive Discharge Medication List: Ambulatory Orders Pravastatin Sodium [Pravachol -] 20 mg PO HS 02/14/15 Furosemide 20 mg PO DAILY 10/26/15 Omeprazole 20 mg PO DAILY 11/21/16 Alprazolam [Alprazolam ER] 2 mg PO BID PRN 09/13/17 Haloperidol 2 mg PO PRN 09/13/17 Memantine HCl/Donepezil HCl [Namzaric 21 mg-10 mg Capsule] 1 each PO DAILY 09/13 Metoprolol Tartrate [Lopressor -] 50 mg PO BID 09/13/17 Mirtazapine [Remeron -] 15 mg PO DAILY 09/13/17 Zolpidem Tartrate [Ambien] 10 mg PO HS PRN MDD 1 09/13/17
[2017-09-17 15:16] VITALS: BP 120/78; PULSE 68; TEMP 97.6
== END 2017-09-17 17:03 | disposition home or self-care (01) ==
LOC: JER 19:55 → JERBED 09-14 02:17 → UNDOADMOB 09-14 02:22 → JERBED 09-14 02:22 → J4S 09-14 23:07
PROVIDERS: ADMIT Internal Medicine; ATTEND Internal Medicine
PROC: 3E03329 Introduction of Other Anti-infective into Peripheral Vein, Percutaneous Approach (ICD-10-PCS; principal; 2017-09-14)
PROC: 3E0337Z Introduction of Electrolytic and Water Balance Substance into Peripheral Vein, Percutaneous Approach (ICD-10-PCS; 2017-09-14)
PROC: 3E013GC Introduction of Other Therapeutic Substance into Subcutaneous Tissue, Percutaneous Approach (ICD-10-PCS; 2017-09-14)
DX: N39.0 Urinary tract infection, site not specified (principal); R41.82 Altered mental status, unspecified; J20.9 Acute bronchitis, unspecified; R62.7 Adult failure to thrive; G30.9 Alzheimer's disease, unspecified; F02.80 Dementia in other diseases classified elsewhere, unspecified severity, without behavioral disturbance, psychotic disturbance, mood disturbance, and anxiety; R01.1 Cardiac murmur, unspecified; I10 Essential (primary) hypertension; F41.9 Anxiety disorder, unspecified; D72.829 Elevated white blood cell count, unspecified; E78.5 Hyperlipidemia, unspecified; Z16.24 Resistance to multiple antibiotics
CPT/HCPCS: 36415; 70450-TC; 71045-TC-FY; 80053; 81003; 81015; 82962; 83735; 83880; 84443; 84484; 85025; 85610; 85730; 87040; 87086; 87186; 87804; 87899; 93005; 93010; 96365; 96372; 99285-25; G0378; J1644; J7030

== ENCOUNTER 2018-02-03 14:16 | Emergency (ER) | payer OTHER ==
[2018-02-03 14:34] VITALS: BP 108/65; PULSE 90; TEMP 99.1; BMI 25.6
--- NOTE | 2018-02-03 16:30 | PDOC ---
History of Present Illness <JessicaYue Juliocesar - Last Filed: 02/03/18 17:47> - History of Present Illness Initial Comments: 02/03/18 16:28 Pt is am 87 y/o F w/ a pmh of ESBL UTI, HTN, HLD Alzheimer's dementia, and basal cell carinoma left cheek who presents today to [facility]NOTE 3] s/p fall. Pt's son states mother was in wheelchair attempting to elevate her feet on couch when she fell backwards and hit hear head on the ground. Pt began to bleed from her head shortly afterwards. 02/03/18 16:59 02/03/18 17:00 <Con Neville - Last Filed: 02/03/18 18:28> - General Chief Complaint: Injury Stated Complaint: FALL Time Seen by Provider: 02/03/18 14:35 Past History <Yue Lopez - Last Filed: 02/03/18 17:47> - Travel Traveled outside of the country in the last 30 days: No - Past Medical History Cardiac Disorders: Yes (heart murmur) COPD: No DVT: No Dementia: Yes HTN: Yes Psychiatric Problems: Yes (anxiety) - Surgical History Abdominal Surgery: Yes (OVARIAN) Orthopedic Surgery: Yes (right leg, neck with metal plate) - Immunization History Immunization Up to Date: Yes - Suicide/Smoking/Psychosocial Hx Smoking History: Never smoked Have you smoked in the past 12 months: No Cigars Per Day: 0 Information on smoking cessation initiated: No Hx Alcohol Use: No Drug/Substance Use Hx: No Substance Use Type: None Hx Substance Use Treatment: No <Con Neville - Last Filed: 02/03/18 18:28> - Past Medical History Allergies/Adverse Reactions: Allergies Allergy/AdvReac Type Severity Reaction Status Date / Time No Known Allergies Allergy Verified 09/13/17 20:21 Home Medications: Ambulatory Orders Alprazolam [Alprazolam ER] 2 mg PO BID PRN 09/13/17 Haloperidol 2 mg PO PRN 09/13/17 Zolpidem Tartrate [Ambien] 5 mg PO HS 02/03/18 *Physical Exam - Vital Signs Last Vital Signs Temp Pulse Resp BP Pulse Ox 99.1 F 90 20 108/65 97 02/03/18 14:31 02/03/18 14:31 02/03/18 14:31 02/03/18 14:31 02/03/18 14:31 <Yue Lopezeliotdenise - Last Filed: 02/03/18 17:47> - Vital Signs Last Vital Signs Temp Pulse Resp BP Pulse Ox 99.1 F 90 20 108/65 97 02/03/18 14:31 02/03/18 14:31 02/03/18 14:31 02/03/18 14:31 02/03/18 14:31 <Con Neville - Last Filed: 02/03/18 18:28> ED Treatment Course - RADIOLOGY Radiology Studies Ordered: Category Date Time Status CERVICAL SPINE CT W/O CONTR [CT] Stat CT Scan 02/03/18 14:[address] WITHOUT CONTRAST [CT] Stat CT Scan 02/03/18 14:36 Completed <JessicaYuebrenda Gandara - Last Filed: 02/03/18 17:47> *DC/Admit/Observation/Transfer - Discharge Dispostion Decision to Admit order: No <Yue Lopez - Last Filed: 02/03/18 17:47> <Con Neville - Last Filed: 02/03/18 18:28> Diagnosis at time of Disposition: Occipital scalp laceration Qualifiers: Encounter type: initial encounter Qualified Code(s): S01.01XA - Laceration without foreign body of scalp, initial encounter - Discharge Dispostion Disposition: HOME Condition at time of disposition: Improved - Referrals Referrals: Geeta Jackson MD [Primary Care Provider] - - Patient Instructions Printed Discharge Instructions: DI for Laceration Repair of the Scalp, How to Prevent Falls, DI for Closed Head Injury Additional Instructions: wound/laceration assessed and repaired, w/o complications, bleeding controlled. area cleaned and dried, dressings placed with topical bacitracin. monitor for signs of infection including fevers or chills, redness, streaking, swelling, purulence, malodor. keep dry x 24 hours, then may wash with soap and water 2-3X per day, topical antibiotics such as neosporin. follow up in 7 days for staple removal. motrin/tylenol for pain control. tetanus is also up to date. patient and family made aware of impression and plan. herida / laceracin evaluada y reparada, sin complicaciones, hemorragia controlada. tim limpia y seca, apsitos colocados con bacitracina tpica. controle si hay signos de infeccin, devin fiebre o escalofros, enrojecimiento, liz, hinchazn, purulez, mal olor. mantngalo seco x 24 horas, luego puede olga con agua y jabn 2-3 veces por da, antibiticos tpicos devin neosporin. seguimiento en 7 chavez para la eliminacin de elementos bsicos. motrin / tylenol para el control del dolor. el ttanojc tambin est actualizado. el paciente y la rae tomaron conciencia de la impresin y el plan. Print Language: TRISTANIAN - Post Discharge Activity
--- NOTE | 2018-02-03 17:47 | PDOC ---
Attending Attestation - Resident Resident Name: Con Neville - ED Attending Attestation I have performed the following: I have examined & evaluated the patient, The case was reviewed & discussed with the resident, I agree w/resident's findings & plan - HPI HPI: 02/03/18 17:51 87 y/o F w/ a pmh of ESBL UTI, HTN, HLD Alzheimer's dementia, and basal cell carinoma left cheek who presents today to [facility] s/p fall. Pt's son states mother was in wheelchair attempting to elevate her feet on couch when she fell backwards and hit hear head on the ground. bleeding controlled, tdap unknown 02/03/18 18:02 - Physicial Exam PE: 02/03/18 18:01 NAD at baseline mental status, pleasantly demented. no focal neuro deficits. + occipital 2cm linear contused tissue horizontal laceration, no active bleeding no neck tenderness. WAGGONER x4. no back tenderness. abdomen soft NTND. no chest wall tenderness. - Medical Decision Making 02/03/18 17:51 87 YOF with h/o ESBL UTI, HTN, HLD Alzheimer's dementia, and basal cell carinoma left cheek who presents today to [facility] s/p mechanical fall with occipital scalp laceration. vitals wnl. at baseline mental status. CT head neg for bleed, degenerative changes. CT c spine with motion artifact limitation, posterior fusion of C4-T2, no gross fx or subluxation or soft tissue swelling. CT head neg for bleeding, microvascular changes related to dementia, +atrophy and possible artifact. Low suspicion for CVA, as evaluating primarily for bleed or injury after mechanical fall. tdap updated. no labs indicated. at baseline status, witnessed fall by son. - staple removal in 7 days (3 placed, see procedure note), wound care and cleaning, no abx needed. f/u PCP for removal in time or return to the ED. no signs of infection, monitor for progression or changes. DC with family in stable condition, does use assistive device at home and fall prevention discussed and information provided in [place]. 02/03/18 17:59 02/03/18 18:02 Procedures - Laceration/Wound Repair Occipital Wound Length: to 2.5 cm Wound Explored: clean Wound's Depth, Shape: superficial Irrigated w/ Saline: Yes Betadine Prep: No (peroxide) Wound Debrided: minimal Wound Repaired With: Saloni Number of Sutures: 3
[2018-02-03] MEDS ORDERED: ACETAMINOPHEN 325 MG TABLET (FP) PO ONE (18:12)
[2018-02-03] MEDS ORDERED: ACETAMINOPHEN 325 MG TABLET (FP) ONE (18:50)
== END 2018-02-03 19:15 | disposition home or self-care (01) ==
LOC: JER 14:16
PROC: 0HQ0XZZ Repair Scalp Skin, External Approach (ICD-10-PCS; principal; 2018-02-03)
DX: S01.01XA Laceration without foreign body of scalp, initial encounter (principal); W05.0XXA Fall from non-moving wheelchair, initial encounter; Y93.89 Activity, other specified; Y92.038 Other place in apartment as the place of occurrence of the external cause; Y99.8 Other external cause status; I10 Essential (primary) hypertension; E78.5 Hyperlipidemia, unspecified; G30.9 Alzheimer's disease, unspecified; F02.80 Dementia in other diseases classified elsewhere, unspecified severity, without behavioral disturbance, psychotic disturbance, mood disturbance, and anxiety; F41.9 Anxiety disorder, unspecified; Z85.828 Personal history of other malignant neoplasm of skin; Z87.440 Personal history of urinary (tract) infections; Z87.442 Personal history of urinary calculi
CPT/HCPCS: 12001-25; 70450-TC; 72125-TC; 99281-25

== ENCOUNTER 2019-07-18 06:23 | Inpatient (IN) | payer OTHER ==
[2019-07-18 06:30] VITALS: BMI 16.2
[2019-07-18] MEDS ORDERED: ONDANSETRON 4 MG/2 ML VIAL IVPUSH ONE (07:27)
[2019-07-18] MEDS ORDERED: FAMOTIDINE 20 MG/50 ML IVPB 20 MG/50 ML MG IVPB ONE ×2 (07:45→08:10)
--- NOTE | 2019-07-18 07:48 | PDOC ---
*Physical Exam - Vital Signs Last Vital Signs Temp Pulse Resp BP Pulse Ox 98.4 F 116 H 18 105/76 98 07/18/19 06:28 07/18/19 06:28 07/18/19 06:28 07/18/19 06:28 07/18/19 06:28 ED Treatment Course - LABORATORY CBC & Chemistry Diagram: 07/18/19 07:51 07/18/19 07:51 Medical Decision Making - Medical Decision Making 07/18/19 09:08 Patient seen as pre-attending w/Dr. Henning (PGY-2) 88 y/o female with a PMHx of Dementia, ESBL UTI, HTN, HLD Alzheimer's dementia, and basal cell carinoma here with multiple episodes of brown/black emesis starting last night. Tachycardic (HR 116) Belly exam equivocal 2/2 patient's clinical condition, (+) bowel sounds - ? hyperactive; will evaluate for SBO, mesenteric ischemia, also consider colitis, gastritis UGI bleed, other acute abdominal pathology including appendicitis, cholecystitis. Belly labs, CTAP (IV/PO contrast) pending 07/18/19 14:11 CT shows retained stool - no acute abdominal pathology; will give enema + admit for evaluation of UGI bleed Patient and patient's son @ bedside counseled on plan of care. Discharge - Discharge Information Problems reviewed: Yes Clinical Impression/Diagnosis: Fecal impaction, Hematemesis of unknown cause Condition: Stable - Follow up/Referral - Patient Discharge Instructions - Post Discharge Activity
[2019-07-18] MEDS ORDERED: ONDANSETRON 4 MG/2 ML VIAL ONE (08:10)
[2019-07-18] MEDS ORDERED: PANTOPRAZOLE SODIUM 40 MG VIAL ONE (08:12)
[2019-07-18 08:32] LABS: BASO % 0.7 % (0-2.0); HEMATOCRIT 43.3 % (32.4-45.2); HEMOGLOBIN 14.3 GM/dL (10.7-15.3); MCH 30.7 pg (25.7-33.7); MCHC 32.9 g/dl (32.0-36.0); MEAN CELL VOLUME 93.3 fl (80-96); MEAN PLT VOLUME 7.7 fl (7.5-11.1); MONO % 12.6 % (3.8-10.2); NEUT % 79.7 % (42.8-82.8); PLATELET COUNT 448 K/MM3 (134-434); RBC 4.64 M/mm3 (3.60-5.2); RDW 14.2 % (11.6-15.6); WHITE BLOOD COUNT 12.3 K/mm3 (4.0-10.0)
[2019-07-18 08:47] LABS: INR 0.9 (0.83-1.09); PROTHROMBIN TIME (PATIENT) 10.6 SEC (9.7-13.0)
--- NOTE | 2019-07-18 08:48 | PDOC ---
History of Present Illness - General Chief Complaint: Nausea/Vomiting Stated Complaint: NAUSEA/VOMITING History Source: Patient, Family (son) Exam Limitations: No Limitations, Dementia - History of Present Illness Initial Comments: 07/18/19 08:50 88 yo female pmh of ESBL UTI, HTN, HLD Alzheimer's (baseline AOX1), and basal cell carinoma left cheek presents to the ED after having multiple episodes of dark vomit. Pt unable to provide hx due to dementia. Son states he noted greater than 5 episodes of dark vomit last night and this am. States pt had a cough last month with some red sputum, resolved. Pt never had abdominal surgery , no hx of GI bleeds, not on NSAIDs, denies recent travel or sick contact Past History - Past Medical History Allergies/Adverse Reactions: Allergies Allergy/AdvReac Type Severity Reaction Status Date / Time No Known Allergies Allergy Verified 07/18/19 06:28 Home Medications: Ambulatory Orders Alprazolam [Alprazolam ER] 2 mg PO BID PRN 09/13/17 Haloperidol 2 mg PO PRN 09/13/17 Zolpidem Tartrate [Ambien] 5 mg PO HS 02/03/18 Cardiac Disorders: Yes (heart murmur) COPD: No DVT: No Dementia: Yes HTN: Yes Hypercholesterolemia: Yes Psychiatric Problems: Yes (anxiety) - Surgical History Abdominal Surgery: Yes (OVARIAN) Orthopedic Surgery: Yes (right leg, neck with metal plate) - Immunization History Immunization Up to Date: Yes - Psycho Social/Smoking Cessation Hx Smoking History: Never smoked Have you smoked in the past 12 months: No Cigars Per Day: 0 Information on smoking cessation initiated: No Hx Alcohol Use: No Drug/Substance Use Hx: No Substance Use Type: None Hx Substance Use Treatment: No Review of Systems - Review of Systems Able to Perform ROS?: No (dementia) *Physical Exam - Vital Signs Last Vital Signs Temp Pulse Resp BP Pulse Ox 98.4 F 116 H 18 105/76 98 07/18/19 06:28 07/18/19 06:28 07/18/19 06:28 07/18/19 06:28 07/18/19 06:28 - Physical Exam General Appearance: Yes: Nourished, Appropriately Dressed. No: Apparent Distress HEENT: positive: EOMI Neck: positive: Supple. negative: Carotid bruit Respiratory/Chest: positive: Lungs Clear, Normal Breath Sounds. negative: Respiratory Distress, Accessory Muscle Use, Rapid RR, Crackles, Rales, Rhonchi, Stridor, Wheezing Cardiovascular: positive: Regular Rhythm, S1, S2, Tachycardia. negative: Edema , JVD, Murmur Vascular Pulses: Dorsalis-Pedis (R): 4+, Doralis-Pedis (L): 4+ Gastrointestinal/Abdominal: positive: Flat, Soft, Tenderness (bilateral lower quadrant ). negative: Pulsatile Mass, Protuberent, Distended, Guarding, Rebound Musculoskeletal: negative: CVA Tenderness Extremity: positive: Normal Capillary Refill, Normal Inspection Integumentary: positive: Normal Color, Dry, Warm. negative: Pale Neurologic: positive: Alert, Normal Mood/Affect. negative: Fully Oriented ( baseline AOX1) ED Treatment Course - LABORATORY CBC & Chemistry Diagram: 07/18/19 07:51 07/18/19 07:51 - ADDITIONAL ORDERS Additional order review: Laboratory Results 07/18/19 07:51 PT with INR 10.60 INR 0.90 07/18/19 07:51 RBC 4.64 MCV 93.3 MCHC 32.9 RDW 14.2 MPV 7.7 Neutrophils % 79.7 D Lymphocytes % 7.0 L D Monocytes % 12.6 H Eosinophils % 0.0 D Basophils % 0.7 - RADIOLOGY Radiology Studies Ordered: Category Date Time Status CHEST X-RAY PORTABLE* [RAD] Stat Radiology 07/18/19 07:29 Completed - Medications Given in the ED: ED Medications Discontinued Medications Generic Name Dose Route Start Last Admin Trade Name Freq PRN Reason Stop Dose Admin Famotidine/Sodium Chloride 20 mg in 50 mls @ 100 mls/hr 07/18/19 07:45 08:19 Pepcid 20 Mg Premixed Ivpb - IVPB 07/18/19 08:14 100 mls/hr ONCE ONE Administration Ondansetron HCl 4 mg 07/18/19 07:27 07/18/19 08:19 Zofran Injection IVPUSH 07/18/19 07:28 4 mg ONCE ONE Administration Medical Decision Making - Medical Decision Making 07/18/19 09:57 88 yo female pmh of ESBL UTI, HTN, HLD Alzheimer's (baseline AOX1), and basal cell carinoma left cheek presents to the ED after having multiple episodes of dark vomit. Pt unable to provide hx due to dementia. Son states he noted greater than 5 episodes of dark vomit last night and this am. States pt had a cough last month with some red sputum, resolved. Pt never had abdominal surgery , no hx of GI bleeds, not on NSAIDs, denies recent travel or sick contact vitals show elevated HR 133 at the bedside Two IV lines placed, protonix, pepcid and fluids ordered and running FAST neg Bilateral lower quadrant pain noted on light palpation. Pain out of proportion to exam, concerned for SBO, mesenteric ischemia, GI bleed Lactic 4.6, pending CT read 07/18/19 11:07 CT shows 9.5 cm fecal impaction. Enema ordered and pt to be admitted for GI follow up due to stated complaint of coffee ground emesis Discharge - Discharge Information Problems reviewed: Yes Clinical Impression/Diagnosis: Fecal impaction, Hematemesis of unknown cause Condition: Stable - Admission Yes - Follow up/Referral - Patient Discharge Instructions - Post Discharge Activity
[2019-07-18 08:49] LABS: ACTIVATED PTT 32.1 SECONDS (25.2-36.5)
[2019-07-18 08:54] LABS: ALBUMIN 2.7 g/dl (3.4-5.0); BILIRUBIN,TOTAL 0.8 mg/dL (0.2-1); BLOOD UREA NITROGEN 14.2 mg/dL (7-18); CALCIUM 9.9 mg/dL (8.5-10.1); CREATININE 0.8 mg/dL (0.55-1.3); MAGNESIUM 2.2 mg/dL (1.8-2.4); POTASSIUM 4.9 mmol/L (3.5-5.1); TOT PROT 6.9 g/dl (6.4-8.2)
[2019-07-18 08:54] LABS: URINE APPEARANCE CLEAR; URINE BILIRUBIN NEGATIVE (NEGATIVE); URINE COLOR DK YELLOW; URINE GLUCOSE (UA) NEGATIVE (NEGATIVE); URINE KETONE TRACE (NEGATIVE); URINE LEUK ESTERASE NEGATIVE (NEGATIVE); URINE NITRITE NEGATIVE (NEGATIVE); URINE PROTEIN TRACE (NEGATIVE)
[2019-07-18] MEDS ORDERED: SODIUM CHLORIDE 500 ML IV STA ×2 (08:55→09:48)
[2019-07-18] MEDS ORDERED: SODIUM PHOSPHATE/NA BIPHOS 133 ML ENEMA PR ONE (11:05)
--- NOTE | 2019-07-18 11:22 | PDOC ---
Documentation entered by Zac Troy SCRIBE, acting as scribe for Krzysztof Candelario MD. Krzysztof Candelario MD: This documentation has been prepared by the Woodrow ly Daniel, SCRIBE, under my direction and personally reviewed by me in its entirety. I confirm that the documentation accurately reflects all work, treatment, procedures, and medical decision making performed by me. Attending Attestation - Resident Resident Name: Hardy Henning - ED Attending Attestation I have performed the following: I have examined & evaluated the patient, The case was reviewed & discussed with the resident, I agree w/resident's findings & plan, Exceptions are as noted - HPI HPI: 07/18/19 10:09 The patient is a year old with a past medical history of here today for ESBL UTI , HTN, HLD Alzheimer's (baseline AOX1), and left cheek basal cell carcinoma evaluation of 5 episodes of dark brown/black vomit that began last night and continued today. - Physicial Exam PE: 07/18/19 11:20 Patient is awake and alert, frail appearing, in mild distress Normocephalic and atraumatic, moans when examined by the MD No scleral icterus, conjunctiva are pink Mucous membranes are dry No JVD CTA RRR, 3/6 systolic ejection murmur Abdomen is soft, diffusely tender, with normal bowel sounds in all 4 quadrants - Medical Decision Making 07/18/19 11:21 88-year-old frail-appearing female presents to the ER with several episodes of dark vomitus prior to arrival. Patient is afebrile and nontoxic-appearing in the ER. Serial abdominal exams revealed diffuse tenderness out of proportion to exam findings. Differential diagnosis includes mesenteric ischemia versus SBO versus gastritis versus colitis. Will hydrate, will obtain CBC/CMP/lipase. Will obtain CT with IV contrast to rule out mesenteric ischemia. Will reassess.
--- NOTE | 2019-07-18 14:39 | EKG ---
Test Reason : Blood Pressure : / mmHG Vent. Rate : 133 BPM Atrial Rate : 133 BPM P-R Int : 142 ms QRS Dur : 068 ms QT Int : 218 ms P-R-T Axes : 065 -72 085 degrees QTc Int : 324 ms POOR DATA QUALITY, INTERPRETATION MAY BE ADVERSELY AFFECTED SINUS TACHYCARDIA WITH OCCASIONAL PREMATURE VENTRICULAR COMPLEXES LEFT AXIS DEVIATION INFERIOR INFARCT , AGE UNDETERMINED ABNORMAL ECG Confirmed by MD RAMONITA, ONELIA ([id number]) on 07/18/2019 2:39:36 PM Referred By: Confirmed By:ONELIA SHIPMAN MD
--- NOTE | 2019-07-18 14:46 | CON.GI ---
Consult Consult Specialty:: GI - History of Present Illness History of Present Illness: 88 y/o female with a PMHx of Dementia, ESBL UTI, HTN, HLD Alzheimer's dementia, and basal cell carinoma here with multiple episodes of brown/black emesis starting last night. Catscan revealed fecal impaction No nausea and vomiting overnight,Catscan reviewed,stomach markedly distented and severe fecal impaction - Past Medical History SIDER: Yes: Dementia Cardio/Vascular: Yes: HTN, Hyperlipdemia, Murmur Gastrointestinal: Yes: GERD - Alcohol/Substance Use Hx Alcohol Use: No - Smoking History Smoking history: Never smoked Have you smoked in the past 12 months: No Home Medications - Allergies Allergies/Adverse Reactions: Allergies Allergy/AdvReac Type Severity Reaction Status Date / Time No Known Allergies Allergy Verified 07/18/19 06:28 - Home Medications Home Medications: Ambulatory Orders Alprazolam [Alprazolam ER] 2 mg PO BID PRN 09/13/17 Haloperidol 2 mg PO PRN 09/13/17 Zolpidem Tartrate [Ambien] 5 mg PO HS 02/03/18 Physical Exam-GI Vital Signs: Vital Signs Temperature 98.4 F 07/18/19 06:28 Pulse Rate 116 H 07/18/19 06:28 Respiratory Rate 18 07/18/19 06:28 Blood Pressure 105/76 07/18/19 06:28 O2 Sat by Pulse Oximetry (%) 98 07/18/19 06:28 Labs: CBC, BMP 07/18/19 07:51 07/18/19 07:51 INR, PTT INR 0.90 (0.83-1.09) 07/18/19 07:51 Hepatic Panel Total Bilirubin 0.8 mg/dL (0.2-1) 07/18/19 07:51 AST 35 U/L (15-37) 07/18/19 07:51 ALT 15 U/L (13-61) 07/18/19 07:51 Alkaline Phosphatase 104 U/L (45-117) 07/18/19 07:51 Albumin 2.7 g/dl (3.4-5.0) L 07/18/19 07:51 Home Medications Medication Instructions Recorded Alprazolam [Alprazolam ER] 2 mg PO BID PRN 09/13/17 Haloperidol 2 mg PO PRN 09/13/17 Zolpidem Tartrate [Ambien] 5 mg PO HS 02/03/18 Home Medication List Medication Instructions Recorded Confirmed Type Alprazolam [Alprazolam ER] 2 mg PO BID PRN 09/13/17 02/03/18 History Haloperidol 2 mg PO PRN 09/13/17 02/03/18 History Zolpidem Tartrate [Ambien] 5 mg PO HS 02/03/18 02/03/18 History Active Medications Generic Name Dose Route Start Last Admin Trade Name Wallaceq PRN Reason Stop Dose Admin Sodium Chloride 1,000 mls @ 83 mls/hr 07/18/19 13:00 Normal Saline - IV [facility]IR [facility] Problem List - Problems (1) Fecal impaction Code(s): K56.41 - FECAL IMPACTION (2) Dilation of stomach Assessment/Plan: r/o gastroparesis R> IV Reglan IV Protonix clears if tolerated Code(s): K31.89 - OTHER DISEASES OF STOMACH AND DUODENUM
[2019-07-18] MEDS: SODIUM CHLORIDE 1,000 ML IV SCH (16:11)
--- NOTE | 2019-07-18 16:48 | HP ---
Admitting History and Physical - Primary Care Physician PCP: Geeta Jackson - Admission Chief Complaint: vomiting History of Present Illness: 88 y/o female with a PMHx of Dementia, ESBL UTI, HTN, HLD Alzheimer's dementia, and basal cell carinoma here with multiple episodes of brown/black emesis starting last night. met with son in the ER-- she had vomiting last night -- dark brown liquid- has been having bm She received zofran here in the ER-- no further episodes of vomiting History Source: Family Member Limitations to Obtaining History: Dementia - Past Medical History [employer]AGE [employer]IC: Yes: Dementia Cardiovascular: Yes: HTN, Hyperlipdemia, Murmur Gastrointestinal: Yes: GERD - Smoking History Smoking history: Never smoked Have you smoked in the past 12 months: No - Alcohol/Substance Use Hx Alcohol Use: No Home Medications - Allergies Allergies/Adverse Reactions: Allergies Allergy/AdvReac Type Severity Reaction Status Date / Time No Known Allergies Allergy Verified 07/18/19 06:28 - Home Medications Home Medications: Ambulatory Orders Alprazolam [Alprazolam ER] 2 mg PO BID PRN 09/13/17 Haloperidol 2 mg PO PRN 09/13/17 Zolpidem Tartrate [Ambien] 5 mg PO HS 02/03/18 Review of Systems - Review of Systems Constitutional: denies: Chills, Fever Gastrointestinal: denies: Abdominal Pain Physical Examination Vital Signs: Vital Signs Temperature 98.4 F 07/18/19 06:28 Pulse Rate 116 H 07/18/19 06:28 Respiratory Rate 18 07/18/19 06:28 Blood Pressure 105/76 07/18/19 06:28 O2 Sat by Pulse Oximetry (%) 98 07/18/19 06:28 Constitutional: Yes: No Distress, Calm Cardiovascular: Yes: Regular Rate and Rhythm Respiratory: Yes: CTA Bilaterally Gastrointestinal: Yes: Normal Bowel Sounds, Soft. No: Tenderness Edema: No Labs: CBC, BMP 07/18/19 07:51 07/18/19 07:51 Imaging - Results Chest X-ray: Image Reviewed Cat Scan: Report Reviewed EKG: Image Reviewed Problem List - Problems (1) Fecal impaction Code(s): K56.41 - FECAL IMPACTION (2) Hematemesis of unknown cause Code(s): K92.0 - HEMATEMESIS (3) Anxiety Code(s): F41.9 - ANXIETY DISORDER, UNSPECIFIED (4) Dementia Code(s): F03.90 - UNSPECIFIED DEMENTIA WITHOUT BEHAVIORAL DISTURBANCE Qualifiers: Dementia type: Alzheimer's disease (5) Failure to thrive Code(s): [id number] - Assessment/Plan PLAN HCT Stable GI eval IV fluids Miralax bid clear liquid diet if she tolerates continue with meds
[2019-07-18] MEDS ORDERED: ALPRAZOLAM 2 MG PO PRN (16:54)
[2019-07-18] MEDS: SODIUM PHOSPHATE/NA BIPHOS 133 ML ENEMA PR SCH ×2 (17:21→21:19)
[2019-07-18] MEDS ORDERED: METOCLOPRAMIDE HCL INJECTION 10 MG/2 ML VIAL IVPB SCH (18:00)
[2019-07-18] MEDS: METOCLOPRAMIDE HCL INJECTION 10 MG/2 ML VIAL IVPB SCH (18:14)
[2019-07-18] MEDS ORDERED: ZOLPIDEM TARTRATE 5 MG TABLET ONE (21:46)
[2019-07-18] MEDS: ZOLPIDEM TARTRATE 5 MG TABLET PO PRN (21:55)
[2019-07-19] MEDS: SODIUM PHOSPHATE/NA BIPHOS 133 ML ENEMA PR SCH ×4 (00:29→21:19)
[2019-07-19] MEDS ORDERED: METOCLOPRAMIDE HCL INJECTION 10 MG/2 ML VIAL ONE (02:15)
[2019-07-19] MEDS: METOCLOPRAMIDE HCL INJECTION 10 MG/2 ML VIAL IVPB SCH ×3 (02:22→18:08)
[2019-07-19] MEDS: PANTOPRAZOLE SODIUM 40 MG VIAL IVPUSH SCH (09:26)
--- NOTE | 2019-07-19 09:29 | PN ---
Progress Note (short form) - Note Progress Note: has bm no complaints met with son Vital Signs - 24 hr 07/19/19 07/19/19 07/19/19 05:00 07:31 11:42 Temperature 98.3 F 98 F 97.6 F Pulse Rate [ 85 81 Left] Pulse Rate [ 71 Right Radial] Respiratory 16 17 16 Rate Blood Pressure 107/49 L 105/59 L 112/59 L [Left Arm] O2 Sat by Pulse 99 99 99 Oximetry (%) 07/19/19 07/19/19 15:15 15:42 Temperature 97.0 F L 97.5 F L Pulse Rate [ Left] Pulse Rate [ 66 Right Radial] Respiratory 18 Rate Blood Pressure 101/61 [Left Arm] O2 Sat by Pulse 98 Oximetry (%) Current Medications Generic Name Dose Route Start Last Admin Trade Name Freq PRN Reason Stop Dose Admin Sodium Chloride 1,000 mls @ 83 mls/hr 07/18/19 13:00 07/19/19 13:26 Normal Saline - IV 83 mls/hr ASDIR [place] Administration Metoclopramide HCl 10 mg 07/18/19 18:00 07/19/19 18:08 Reglan Injection - IVPB 10 mg Q8H-IV [place] Administration Non-Formulary Medication 2 mg 07/18/19 16:54 Alprazolam [Alprazolam Er] PO BID PRN ANXIETY Pantoprazole Sodium 40 mg 07/19/19 10:00 07/19/19 09:26 Protonix Iv IVPUSH 40 mg DAILY [place] Administration Polyethylene Glycol 17 gm 07/19/19 11:00 07/19/19 11:39 Miralax (For Daily Use) - PO 17 gm BID [place] Administration Sodium Phosphate 133 ml 07/19/19 13:30 07/19/19 17:30 Fleet Adult Rectal Enema - [place] 07/20/19 01:31 133 ml Q4H [place] Administration Zolpidem Tartrate 5 mg 07/18/19 22:00 07/18/19 21:55 Ambien - PO 5 mg HS PRN Administration INSOMNIA Laboratory Results - last 24 hr 07/19/19 07/19/19 05:40 09:55 WBC Cancelled 9.0 Corrected WBC (auto) Cancelled RBC Cancelled 4.23 Hgb Cancelled 13.0 Hct Cancelled 40.3 MCV Cancelled 95.1 MCH Cancelled 30.7 MCHC Cancelled 32.3 RDW Cancelled 14.6 Plt Count Cancelled 356 D MPV Cancelled 7.5 Manual Slide Review Cancelled Platelet Comment Cancelled S1 S2 RRR Lungs clear Abd-soft, NT no edema PLAN enema per GI FUA-- still with fecal impaction reglan ordered continue with meds Problem List - Problems (1) Fecal impaction Code(s): K56.41 - FECAL IMPACTION (2) Hematemesis of unknown cause Code(s): K92.0 - HEMATEMESIS (3) Anxiety Code(s): F41.9 - ANXIETY DISORDER, UNSPECIFIED (4) Dementia Code(s): F03.90 - UNSPECIFIED DEMENTIA WITHOUT BEHAVIORAL DISTURBANCE Qualifiers: Dementia type: Alzheimer's disease (5) Failure to thrive Code(s): [id number] -
[2019-07-19 10:07] LABS: HEMATOCRIT 40.3 % (32.4-45.2); MCH 30.7 pg (25.7-33.7); MCHC 32.3 g/dl (32.0-36.0); MEAN CELL VOLUME 95.1 fl (80-96); MEAN PLT VOLUME 7.5 fl (7.5-11.1); PLATELET COUNT 356 K/MM3 (134-434); RBC 4.23 M/mm3 (3.60-5.2); RDW 14.6 % (11.6-15.6)
[2019-07-19] MEDS: POLYETHYLENE GLYCOL 3350 119 GM BTL PO SCH ×2 (11:39→22:32)
--- NOTE | 2019-07-19 12:38 | PN.GI ---
GI Progress Note Subjective: enemas discontinued,no nausea but still with epigastric pain, poor appetite - Objective Vital Signs: Vital Signs Temperature 97.6 F 07/19/19 11:42 Pulse Rate 71 07/19/19 11:42 Respiratory Rate 16 07/19/19 11:42 Blood Pressure 112/59 L 07/19/19 11:42 O2 Sat by Pulse Oximetry (%) 99 07/19/19 11:42 Constitutional: Well Nourished Eyes: Yes: Conjunctiva Clear HENT: Yes: Atraumatic Neck: Yes: Supple Cardiovascular: Yes: Regular Rate and Rhythm Respiratory: Yes: CTA Bilaterally ...Palpate: Yes: Soft, Tenderness, Epigastium. No: Firm/Rigid, Guarding, Hepatomegaly, Mass Labs: CBC, BMP 07/19/19 09:55 07/18/19 07:51 INR, PTT INR 0.90 (0.83-1.09) 07/18/19 07:51 Problem List - Problems (1) Fecal impaction Code(s): K56.41 - FECAL IMPACTION (2) Dilation of stomach Assessment/Plan: associated with epigastric pain R> clear liquids as tolerated continue IV Pantoprazole and reglan Code(s): K31.89 - OTHER DISEASES OF STOMACH AND DUODENUM
[2019-07-19] MEDS: SODIUM CHLORIDE 1,000 ML IV SCH (13:26)
[2019-07-19] MEDS ORDERED: ZOLPIDEM TARTRATE 5 MG TABLET ONE (20:34)
[2019-07-19] MEDS ORDERED: ALPRAZolam 1 MG TABLET ONE (20:34)
[2019-07-19] MEDS: ZOLPIDEM TARTRATE 5 MG TABLET PO PRN (21:18)
[2019-07-20] MEDS: SODIUM PHOSPHATE/NA BIPHOS 133 ML ENEMA PR SCH (01:41)
[2019-07-20] MEDS: METOCLOPRAMIDE HCL INJECTION 10 MG/2 ML VIAL IVPB SCH ×3 (02:40→18:02)
[2019-07-20 07:53] LABS: BLOOD UREA NITROGEN 7.6 mg/dL (7-18); CALCIUM 8.4 mg/dL (8.5-10.1); CREATININE 0.4 mg/dL (0.55-1.3)
[2019-07-20 08:06] LABS: HEMATOCRIT 35.1 % (32.4-45.2); HEMOGLOBIN 11.6 GM/dL (10.7-15.3); MCH 31.1 pg (25.7-33.7); MCHC 33.2 g/dl (32.0-36.0); MEAN CELL VOLUME 93.8 fl (80-96); MEAN PLT VOLUME 7.7 fl (7.5-11.1); PLATELET COUNT 315 K/MM3 (134-434); RBC 3.74 M/mm3 (3.60-5.2); RDW 14.7 % (11.6-15.6); WHITE BLOOD COUNT 8.5 K/mm3 (4.0-10.0)
[2019-07-20] MEDS: SODIUM CHLORIDE 1,000 ML IV SCH (08:46)
[2019-07-20] MEDS: POLYETHYLENE GLYCOL 3350 119 GM BTL PO SCH ×2 (09:50→10:27)
[2019-07-20] MEDS: PANTOPRAZOLE SODIUM 40 MG VIAL IVPUSH SCH (09:58)
--- NOTE | 2019-07-20 13:25 | PN ---
Progress Note (short form) - Note Progress Note: Pt seen/ examined chart is reviewed awake/comfortable son at bedside Vital Signs Temp 98.7 F 07/20/19 10:00 Pulse 94 H 07/20/19 10:00 Resp 20 07/20/19 10:00 BP 112/76 07/20/19 10:00 Pulse Ox 98 07/19/19 15:15 Intake & Output 07/19/19 07/20/19 07/20/19 23:59 11:59 23:59 Other: Voiding Method Incontinent Incontinent # Unmeasured Voids Void 4 Bowel Movement Yes Yes # Bowel Movements 1 4 Active Medications Metoclopramide HCl (Reglan Injection -) 10 mg IVPB Q8H-IV [place] Last Admin: 07/20/19 09:58 Dose: 10 mg Non-Formulary Medication (Alprazolam [Alprazolam Er]) 2 mg PO BID PRN PRN Reason: ANXIETY Pantoprazole Sodium (Protonix Iv) 40 mg IVPUSH DAILY [place] Last Admin: 07/20/19 09:58 Dose: 40 mg Polyethylene Glycol (Miralax (For Daily Use) -) 17 gm PO BID [place] Last Admin: 07/20/19 10:27 Dose: 17 gm Potassium Chloride (Potassium Chloride Oral Liquid) 40 meq PO ONCE ONE Stop: 07/20/19 13:23 Zolpidem Tartrate (Ambien -) 5 mg PO HS PRN PRN Reason: INSOMNIA Last Admin: 07/19/19 21:18 Dose: 5 mg CBC, BMP 07/20/19 07:04 07/20/19 07:04 fua / ct scan reviewed Physical Exam . S1 S2 RRR Lungs clear Abd-soft, NT no edema PLAN Better enema has BM FUA-- f/u continue with meds will follow monitor lytes if stable and better - will consider d/c in am Problem List - Problems (1) Fecal impaction Code(s): K56.41 - FECAL IMPACTION (2) Hematemesis of unknown cause Code(s): K92.0 - HEMATEMESIS (3) Anxiety Code(s): F41.9 - ANXIETY DISORDER, UNSPECIFIED (4) Dementia Code(s): F03.90 - UNSPECIFIED DEMENTIA WITHOUT BEHAVIORAL DISTURBANCE Qualifiers: Dementia type: Alzheimer's disease (5) Failure to thrive Code(s): [id number] -
[2019-07-20] MEDS ORDERED: POTASSIUM CHLORIDE ORAL LIQUID 20 MEQ/15 ML PO ONE (13:30)
[2019-07-20] MEDS ORDERED: POTASSIUM CHLORIDE ORAL LIQUID 20 MEQ/15 ML ONE (14:54)
[2019-07-21] MEDS: POLYETHYLENE GLYCOL 3350 119 GM BTL PO SCH ×3 (01:37→21:29)
[2019-07-21] MEDS: METOCLOPRAMIDE HCL INJECTION 10 MG/2 ML VIAL IVPB SCH ×3 (01:47→17:42)
[2019-07-21 07:55] LABS: CALCIUM 8.7 mg/dL (8.5-10.1); CREATININE 0.4 mg/dL (0.55-1.3)
[2019-07-21 08:02] LABS: POTASSIUM 2.7 mmol/L (3.5-5.1)
[2019-07-21] MEDS: KCL 10 MEQ IVPB 10 MEQ/100 ML INFUS.BAG IVPB SCH ×3 (10:06→12:29)
[2019-07-21] MEDS: PANTOPRAZOLE SODIUM 40 MG VIAL IVPUSH SCH (10:06)
--- NOTE | 2019-07-21 13:10 | PN ---
Progress Note (short form) - Note Progress Note: has bm no complaints met with daughter in law Vital Signs - 24 hr 07/20/19 07/20/19 07/21/19 22:20 23:50 02:47 Temperature 97.9 F Pulse Rate 109 H Pulse Rate [ 98 H Right Radial] Respiratory 16 16 16 Rate Blood Pressure 112/57 L Blood Pressure 114/60 [Left Arm] O2 Sat by Pulse 96 96 Oximetry (%) 07/21/19 07/21/19 07/21/19 03:11 03:26 06:00 Temperature 97.8 F 98.7 F Pulse Rate 109 H 112 H Pulse Rate [ Right Radial] Respiratory 16 16 16 Rate Blood Pressure 112/57 L 113/59 L Blood Pressure [Left Arm] O2 Sat by Pulse 96 Oximetry (%) 07/21/19 10:00 Temperature 98.4 F Pulse Rate 100 H Pulse Rate [ Right Radial] Respiratory 16 Rate Blood Pressure 106/55 L Blood Pressure [Left Arm] O2 Sat by Pulse Oximetry (%) Current Medications Generic Name Dose Route Start Last Admin Trade Name Freq PRN Reason Stop Dose Admin Metoclopramide HCl 10 mg 07/18/19 18:00 07/21/19 10:06 Reglan Injection - IVPB 10 mg Q8H-IV [place] Administration Non-Formulary Medication 2 mg 07/18/19 16:54 Alprazolam [Alprazolam Er] PO BID PRN ANXIETY Pantoprazole Sodium 40 mg 07/19/19 10:00 07/21/19 10:06 Protonix Iv IVPUSH 40 mg DAILY [place] Administration Polyethylene Glycol 17 gm 07/19/19 11:00 07/21/19 10:06 Miralax (For Daily Use) - PO Not Given BID [place] Zolpidem Tartrate 5 mg 07/18/19 22:00 07/19/19 21:18 Ambien - PO 5 mg HS PRN Administration INSOMNIA Laboratory Results - last 24 hr 07/21/19 06:54 Sodium 148 H Potassium 2.7 L* Chloride 110 H Carbon Dioxide 34 H Anion Gap 4 L BUN 5.0 L Creatinine 0.4 L Est GFR (CKD-EPI)AfAm 108.54 Est GFR (CKD-EPI)NonAf 93.65 Random Glucose 101 Calcium 8.7 S1 S2 RRR Lungs decreased Abd- soft, NT no edema PLAN Replace potassium continue with meds will recheck BMP later today dc planning Problem List - Problems (1) Fecal impaction Code(s): K56.41 - FECAL IMPACTION (2) Hematemesis of unknown cause Code(s): K92.0 - HEMATEMESIS (3) Anxiety Code(s): F41.9 - ANXIETY DISORDER, UNSPECIFIED (4) Dementia Code(s): F03.90 - UNSPECIFIED DEMENTIA WITHOUT BEHAVIORAL DISTURBANCE Qualifiers: Dementia type: Alzheimer's disease (5) Failure to thrive Code(s): [id number] -
[2019-07-21] MEDS ORDERED: ALPRAZolam 2 MG TABLET PO PRN (13:22)
[2019-07-21 17:23] LABS: BLOOD UREA NITROGEN 6.1 mg/dL (7-18); CALCIUM 8.8 mg/dL (8.5-10.1); CREATININE 0.5 mg/dL (0.55-1.3); POTASSIUM 3.3 mmol/L (3.5-5.1)
--- NOTE | 2019-07-21 18:41 | PN.GI ---
GI Progress Note Subjective: No acute events Tolerating PO Family at bedside - Objective Vital Signs: Vital Signs Temperature 98.0 F 07/21/19 14:00 Pulse Rate 101 H 07/21/19 14:00 Respiratory Rate 18 07/21/19 14:00 Blood Pressure 101/55 L 07/21/19 14:00 O2 Sat by Pulse Oximetry (%) 96 07/21/19 09:00 Constitutional: Calm Eyes: No: Sclera Icterus Cardiovascular: Yes: Tachycardia (regular rhythm) Respiratory: Yes: Diminished (at bases, poor insp effort) Gastrointestinal Inspection: Yes: Scars (pelvic). No: Distention ...Auscultate: Yes: Normoactive Bowel Sounds ...Palpate: Yes: Soft. No: Hepatomegaly, Splenomegaly, Tenderness ...Percussion: No: Tympanitic ...Rectal Exam: Yes: Other (No external lesions, copious soft chacon stool in rectal vault. not amenable to manual disompaction given consistency) Edema: No Labs: CBC, BMP 07/20/19 07:04 07/21/19 16:00 INR, PTT INR 0.90 (0.83-1.09) 07/18/19 07:51 Problem List - Problems (1) Fecal impaction Assessment/Plan: suspect paradosixal diarrhea in setting of fecal retention Continue miraLAX 17g BID Code(s): K56.41 - FECAL IMPACTION (2) Gastric distention Assessment/Plan: Tolerating PO Discontinue reglan if unable to tolerate PO, UGIS to evaluate further Code(s): K31.89 - OTHER DISEASES OF STOMACH AND DUODENUM
[2019-07-21] MEDS ORDERED: POTASSIUM CHLORIDE ORAL LIQUID 20 MEQ/15 ML PO ONE (19:35)
[2019-07-21] MEDS: ZOLPIDEM TARTRATE 5 MG TABLET PO PRN (21:29)
[2019-07-22] MEDS ORDERED: ALPRAZolam 1 MG TABLET PO PRN (01:22)
[2019-07-22] MEDS: METOCLOPRAMIDE HCL INJECTION 10 MG/2 ML VIAL IVPB SCH ×2 (02:20→09:35)
[2019-07-22 08:10] LABS: BLOOD UREA NITROGEN 5.6 mg/dL (7-18); CALCIUM 9.4 mg/dL (8.5-10.1); CREATININE 0.4 mg/dL (0.55-1.3)
[2019-07-22] MEDS: PANTOPRAZOLE SODIUM 40 MG VIAL IVPUSH SCH (09:35)
[2019-07-22] MEDS: POLYETHYLENE GLYCOL 3350 119 GM BTL PO SCH (09:35)
[2019-07-22 09:41] VITALS: TEMP 97.8
--- NOTE | 2019-07-22 13:14 | DS ---
Physical Examination Vital Signs: Vital Signs Temperature 97.8 F 07/22/19 09:40 Pulse Rate 97 H 07/22/19 09:40 Respiratory Rate 20 07/22/19 09:40 Blood Pressure 113/59 L 07/22/19 09:40 O2 Sat by Pulse Oximetry (%) 95 07/21/19 21:00 Constitutional: Yes: No Distress, Calm Neck: Yes: Tenderness Respiratory: Yes: CTA Bilaterally Gastrointestinal: Yes: Normal Bowel Sounds, Soft. No: Tenderness Labs: CBC, BMP 07/20/19 07:04 07/22/19 06:05 Discharge Summary Problems reviewed: Yes Reason For Visit: FECAL IMPACTION Current Active Problems Dilation of stomach (Acute) Fecal impaction (Acute) Gastric distention (Acute) Hematemesis of unknown cause (Acute) Hospital Course: admitted for vomiting Found to have gastroparesis, fecal impaction seen by GI Started on Reglan-- then dc later She is having bm potassium replaced stable for dc home Condition: Stable - Instructions Referrals: Geeta Jackson MD [Primary Care Provider] - Disposition: HOME - Home Medications Comprehensive Discharge Medication List: Ambulatory Orders Alprazolam [Alprazolam ER] 2 mg PO BID PRN 09/13/17 Haloperidol 2 mg PO PRN 09/13/17 Zolpidem Tartrate [Ambien] 5 mg PO HS 02/03/18
[2019-07-22 13:33] VITALS: BP 115/61; PULSE 87
== END 2019-07-22 19:07 | disposition home or self-care (01) | DRG 391 ==
LOC: JER 06:23 → JERBED 11:17 → J4S 07-20 23:41
PROVIDERS: ADMIT Internal Medicine; ATTEND Internal Medicine
DX: K31.84 Gastroparesis (principal); E43 Unspecified severe protein-calorie malnutrition; K92.0 Hematemesis; Z68.1 Body mass index [BMI] 19.9 or less, adult; K56.41 Fecal impaction; I10 Essential (primary) hypertension; G30.9 Alzheimer's disease, unspecified; F02.80 Dementia in other diseases classified elsewhere, unspecified severity, without behavioral disturbance, psychotic disturbance, mood disturbance, and anxiety; R54 Age-related physical debility; K31.89 Other diseases of stomach and duodenum; R62.7 Adult failure to thrive; C44.91 Basal cell carcinoma of skin, unspecified
CPT/HCPCS: 36415; 71045-TC-FY; 74018-TC-FY; 74177-TC; 80048; 80053; 81003; 82550; 83605; 83690; 83735; 84484; 85025; 85027; 85610; 85730; 86850; 86900; 86901; 87086; 93005; 93010; J7030; Q9967

== ENCOUNTER 2019-08-12 18:28 | Inpatient (IN) | payer OTHER ==
[2019-08-12] MEDS ORDERED: ACETAMINOPHEN 1000 MG/100 ML VIAL (NON FORMULARY) IVPB ONE (19:27)
--- NOTE | 2019-08-12 19:27 | PDOC ---
History of Present Illness - General Chief Complaint: SIRS, Suspected/Possible Stated Complaint: SEPSIS Time Seen by Provider: 08/12/19 19:01 - History of Present Illness Initial Comments: 08/12/19 19:25 89 yo F PMH Alzheimer's disease (baseline AAOX1), HTN, HLD, ESBL UTI, basal cell carcinoma of left cheek, recent admission for unexplained emesis, found to have gastroparesis and fecal impaction, presenting with cough, fever, and AMS. Patient unable to participate in history or provide ROS, all history from son. Per son, patient has had cough for the past 3 days. Started coughing up copious mucoid yellow phlegm yesterday, so PCP was called. PCP stated to bring her into the ER if she worsened. They checked temperature daily, patient was afebrile yesterday and day before. Today, patient with increasing respiratory distress, more altered, so brought to the ER. Unable to assess ROS. Patient is DNR/DNI. Past History - Past Medical History Allergies/Adverse Reactions: Allergies Allergy/AdvReac Type Severity Reaction Status Date / Time No Known Allergies Allergy Verified 08/12/19 18:57 Home Medications: Ambulatory Orders Alprazolam [Alprazolam ER] 2 mg PO BID PRN 09/13/17 Haloperidol 2 mg PO PRN 09/13/17 Zolpidem Tartrate [Ambien] 5 mg PO HS 02/03/18 Polyethylene Glycol 3350 [Miralax 119 gm Btl -] 17 gm PO DAILY #1 bottle 07/22/19 Cancer: No (basal cell) Cardiac Disorders: Yes (heart murmur) COPD: No DVT: No Dementia: Yes HTN: Yes Hypercholesterolemia: Yes Psychiatric Problems: Yes (anxiety) - Surgical History Abdominal Surgery: Yes (OVARIAN) Orthopedic Surgery: Yes (right leg, neck with metal plate) - Immunization History Immunization Up to Date: Yes - Psycho Social/Smoking Cessation Hx Smoking History: Never smoked Have you smoked in the past 12 months: No Cigars Per Day: 0 Information on smoking cessation initiated: No Hx Alcohol Use: No Drug/Substance Use Hx: No Substance Use Type: None Hx Substance Use Treatment: No Review of Systems - Review of Systems Comments:: 08/12/19 19:56 Unable to assess 2/2 dementia and AMS. *Physical Exam - Vital Signs Last Vital Signs Temp Pulse Resp BP Pulse Ox 103 F H 140 H 26 H 128/79 81 L 08/12/19 18:57 08/12/19 18:57 08/12/19 18:57 08/12/19 18:57 08/12/19 18:57 - Physical Exam 08/12/19 19:56 Gen: lethargic, appears cachectic, in distress Neuro: PERRLA, unable to cooperate with neurological exam HEENT: atraumatic, normocephalic, dry mucous membranes Neck: trachea midline, supple CV: tachycardic to 140s, regular rhythm, no murmurs, rubs, or gallops Pulm: diffuse bilateral coarse breath sounds Abd: soft, non-distended, non-tender MSK: full ROM, intact pulses Extr: no edema, no deformities Skin: hot, dry ED Treatment Course - LABORATORY CBC & Chemistry Diagram: 08/12/19 19:35 08/12/19 19:35 Medical Decision Making - Medical Decision Making 08/12/19 19:55 Concern for sepsis, likely 2/2 PNA, potentially aspiration PNA. - sepsis order set - ABG - IV fluids - Ofirmev - Zosyn - admit - vancomycin 08/12/19 20:14 CXR with multilobar PNA, R>L. Will admit, pending labs. 08/12/19 20:44 WBC 14.4, ABG with pH 7.47. 08/12/19 20:52 Lactate 3.1. Patient endorsed to ACCOUNT LIAISON Rosana Costa, will admit. Discharge - Discharge Information Problems reviewed: Yes Clinical Impression/Diagnosis: Sepsis - Admission Yes - Follow up/Referral Referrals: Geeta Jackson MD [Primary Care Provider] - - Patient Discharge Instructions - Post Discharge Activity
[2019-08-12] MEDS ORDERED: ALBUTEROL SO4 2.5/IPRATROPIUM 0.5 INH SOL 3 ML VIAL.NEB. NEB ONE ×3 (19:32→19:43)
[2019-08-12] MEDS ORDERED: ACETAMINOPHEN INJECTION 100 ML IVPB ONE (19:32)
[2019-08-12] MEDS ORDERED: LACTATED RINGERS SOLUTION 1000 ML INFUS.BAG IV ONE ×2 (19:43→21:39)
[2019-08-12] MEDS ORDERED: PIPERACILLIN/TAZOB 4.5 GM 4.5 GM in DEXTROSE 5%-WATER 100 ML IVPB ONE (19:56)
--- NOTE | 2019-08-12 20:08 | PDOC ---
Documentation entered by Armani Olivas SCRIBE, acting as scribe for Rekha Payne DO. Rekha Payne DO: This documentation has been prepared by the Brendon ly Xhesika, SCRIBE, under my direction and personally reviewed by me in its entirety. I confirm that the documentation accurately reflects all work, treatment, procedures, and medical decision making performed by me. Attending Attestation - Resident Resident Name: OrtizObinna - ED Attending Attestation I have performed the following: I have examined & evaluated the patient, The case was reviewed & discussed with the resident, I agree w/resident's findings & plan, Exceptions are as noted - HPI HPI: 08/12/19 19:58 The patient is an 89 year old female, DNR/DNI, with a significant PMH of ESBL UTI, HTN, HLD Alzheimer's dementia, and basal cell carcinoma who presents to the emergency department for 3 days of cough, fever, and AMS. Patient is unable to provide history. Per family at bedside states patient was recently admitted and discharged for fecal impaction and developed nausea, vomiting, and diarrhea. Allergies: NKDA PCP: Dr. Getea Jackson - Physicial Exam PE: 08/12/19 19:59 GENERAL: Awake, alert. +hot to touch. +cachectic. HEAD: No signs of trauma ENT: +poor dentition. No dentures. NECK: Normal ROM, supple, no lymphadenopathy, JVD, or masses LUNGS: + coarse rhonchi bilaterally. +tachypneic. +respiratory distress. HEART: +tachy. no murmurs, rubs or gallops ABDOMEN: Soft, nontender, normoactive bowel sounds. No guarding, no rebound. No masses EXTREMITIES: Normal range of motion, no edema. No clubbing or cyanosis. No cords, erythema, or tenderness SKIN: Warm, Dry, normal turgor, no rashes lesions noted. - Critical Care Time Total Critical Care Time: 45 Critical Care Statement: The care of this patient involved high complexity decision making to prevent further life threatening deterioration of the patient 's condition and/or to evaluate & treat vital organ system(s) failure or risk of failure. - Medical Decision Making 08/12/19 20:04 I, Dr. Rekha Kurkowski, DO, attest that this document has been prepared under my direction and personally reviewed by me in its entirety. I further attest, that it accurately reflects all work, treatment, procedures and medical decision -making performed by me. a/p: 89yo female with hx of dementia with cough, congestion, fevers, tachy, tachypnea -pt is DNR/I -pt brought in by the [facility], cough x 3 days, fever today -b/l rhonchi - suspect pna -will send labs, cultures, sepsis order set -will start ivf hydration, will give nebs -will obtain cxr -will need admission -will start iv abx -will send flu 08/12/19 20:24 RLL pna on xray abx ordered 08/12/19 20:37 elevated wbc to 14 flu pending 08/12/19 20:56 flu neg pao2 96 but on a NRB resident discussed the case with gwen who accepts pt to service 08/12/19 21:49 pt with uti tropenemia- suspect secondary to low pulse ox, 2nd spill elevated lactate iv abx, fluids ordered Heart Score/ECG Review - ECG Intrepretation Comment:: 08/12/19 20:07 sinus tach 139, pac, q waves inferior leads, L axis, no acute st/t wave findings
[2019-08-12] MEDS ORDERED: VANCOMYCIN 1,000 MG in DEXTROSE 5%-WATER - 250 ML IVPB ONE ×2 (20:19→20:54)
[2019-08-12] MEDS ORDERED: VANCOMYCIN IVPB ONE ×2 (20:19→20:20)
[2019-08-12] MEDS ORDERED: DEXTROSE 5% IVPB ONE ×2 (20:19→20:20)
[2019-08-12] MEDS ORDERED: WATER IVPB ONE ×2 (20:19→20:20)
[2019-08-12] MEDS ORDERED: PIPERACILLIN/TAZOB 4.5 GM 4.5 GM/100 ML BAG IVPB ONE (20:21)
[2019-08-12 20:24] LABS: BASO % 0.2 % (0-2.0); HEMATOCRIT 44.9 % (32.4-45.2); MCH 29.9 pg (25.7-33.7); MCHC 31.1 g/dl (32.0-36.0); MEAN CELL VOLUME 96.1 fl (80-96); MEAN PLT VOLUME 9.2 fl (7.5-11.1); MONO % 2.9 % (3.8-10.2); NEUT % 91.9 % (42.8-82.8); PLATELET COUNT 270 K/MM3 (134-434); RBC 4.67 M/mm3 (3.60-5.2); RDW 15.1 % (11.6-15.6); WHITE BLOOD COUNT 14.4 K/mm3 (4.0-10.0)
[2019-08-12 20:35] LABS: INR 1.09 (0.83-1.09); PROTHROMBIN TIME (PATIENT) 12.9 SEC (9.7-13.0)
[2019-08-12 20:36] LABS: ALLENS TEST POSITIVE; ARTERIAL BLD GAS O2 SATURATION 96.5 % (95-98); ARTERIAL BLOOD GAS BASE EXCESS 4.8 meq/l (-2-2); ARTERIAL BLOOD GAS PCO2 40.2 mmHg (35-45); ARTERIAL BLOOD GAS PO2 86.7 mmHg (80-100); ARTERIAL BLOOD GAS pH 7.47 (7.35-7.45)
[2019-08-12 20:37] LABS: ACTIVATED PTT 34.7 SECONDS (25.2-36.5)
[2019-08-12 21:01] LABS: ALBUMIN 2.4 g/dl (3.4-5.0); BILIRUBIN,TOTAL 0.8 mg/dL (0.2-1); BLOOD UREA NITROGEN 32.8 mg/dL (7-18); CALCIUM 9.9 mg/dL (8.5-10.1); CREATININE 0.8 mg/dL (0.55-1.3); POTASSIUM 4.2 mmol/L (3.5-5.1); TOT PROT 6.8 g/dl (6.4-8.2)
[2019-08-12 21:05] LABS: HYALINE CASTS 29 /lpf (0-8); PH,URINE >= 9.0 (5.0-8.0); URINE APPEARANCE TURBID; URINE BACTERIA >9000 /hpf (NEGATIVE); URINE BILIRUBIN NEGATIVE (NEGATIVE); URINE COLOR DK YELLOW; URINE GLUCOSE (UA) NEGATIVE (NEGATIVE); URINE KETONE NEGATIVE (NEGATIVE); URINE LEUK ESTERASE 2+ (NEGATIVE); URINE NITRITE NEGATIVE (NEGATIVE); URINE PROTEIN 2+ (NEGATIVE); URINE RBC 4 /hpf (0-4); URINE WBC 241 /hpf (0-5)
[2019-08-12 21:05] LABS: PLATELET ESTIMATE ADEQUATE
[2019-08-12] MEDS ORDERED: VANCOMYCIN 1 GRAM (PRE-DOCKED) 1,000 MG/250 ML BAG IVPB ONE (21:17)
--- NOTE | 2019-08-12 22:36 | HP ---
Admitting History and Physical - Primary Care Physician PCP: Geeta Jackson - Admission Chief Complaint: Cough, Fever, Lethargy History of Present Illness: This is a 89 y/o female with a significant PMHx of Alzheimer's Dementia, HTN, HLD, Anxiety, ESBL UTI, HTN, HLD, Basal Cell Carcinoma recent admission 07/18-07/22 for Fecal Impaction. Who presents to the ED for cough, fever, and altered mental status x3 days. Patient is unable to provide history. Patient's daughter who is at bedside, provided HPI. Per the daughter, patient has had a productive cough- white-yellow thick phlegm for the past 3 days. Started coughing up copious mucoid yellow phlegm yesterday, so PCP was called. PCP stated to bring her into the ER if her condition worsened. The family checks temperature daily, patient was afebrile yesterday and day before. Today, patient with increasing respiratory distress, more altered, so brought to the ER. 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: Alzheimer's, Dementia Cardiovascular: Yes: HTN, Hyperlipdemia, Murmur Gastrointestinal: Yes: GERD - Smoking History Smoking history: Never smoked Have you smoked in the past 12 months: No - Alcohol/Substance Use Hx Alcohol Use: No - Social History Usual Living Arrangement: Yes: With Child ADL: Family Assistance History of Recent Travel: No Home Medications - Allergies Allergies/Adverse Reactions: Allergies Allergy/AdvReac Type Severity Reaction Status Date / Time No Known Allergies Allergy Verified 08/12/19 18:57 - Home Medications Home Medications: Ambulatory Orders Alprazolam [Alprazolam ER] 2 mg PO BID PRN 09/13/17 Haloperidol 2 mg PO PRN 09/13/17 Zolpidem Tartrate [Ambien] 5 mg PO HS 02/03/18 Polyethylene Glycol 3350 [Miralax 119 gm Btl -] 17 gm PO DAILY #1 bottle 07/22/19 Family Medical History Family History: Unable to Obtain Review of Systems Unable to obtain ROS, reason: Dementia Physical Examination Vital Signs: Vital Signs Temperature 103 F H 08/12/19 18:57 Pulse Rate 140 H 08/12/19 18:57 Respiratory Rate 26 H 08/12/19 18:57 Blood Pressure 128/79 08/12/19 18:57 O2 Sat by Pulse Oximetry (%) 81 L 08/12/19 18:57 Constitutional: Yes: Cachectic, Mild Distress, Other (lethargic) Eyes: Yes: Conjunctiva Clear, PERRL (sluggish) HENT: Yes: WNL, Atraumatic, Normocephalic Neck: Yes: WNL, Supple, Trachea Midline Cardiovascular: Yes: Tachycardia, S1, S2 Respiratory: Yes: Accessory Muscle Use, Diminished, Rhonchi, Wheezes, Other (NRB) Gastrointestinal: Yes: Normal Bowel Sounds, Soft ...Rectal Exam: Yes: Deferred Renal/: Yes: Incontinence Breast(s): Yes: WNL Musculoskeletal: Yes: WNL Extremities: Yes: WNL Edema: No Peripheral Pulses WNL: Yes Neurological: Yes: Lethargy Labs: CBC, BMP 08/12/19 19:35 08/12/19 19:35 Laboratory Results - last 24 hr 08/12/19 08/12/19 08/12/19 19:13 19:35 19:35 WBC RBC Hgb Hct MCV MCH MCHC RDW Plt Count MPV Absolute Neuts (auto) Total Counted Neutrophils % Neutrophils % (Manual) Band Neutrophils % Lymphocytes % Lymphocytes % (Manual) Monocytes % Monocytes % (Manual) Eosinophils % Eosinophils % (Manual) Basophils % Nucleated RBC % Platelet Estimate Platelet Comment PT with INR 12.90 INR 1.09 PTT (Actin FS) 34.7 Anticoagulation Therapy Puncture Site ABG pH ABG pCO2 at Pt Temp ABG pO2 at Pt Temp ABG HCO3 ABG O2 Sat (Measured) ABG O2 Content ABG Base Excess Abraham Test VBG pH POC VBG pCO2 POC VBG pO2 VBG HCO3 VBG O2 Sat (Keith) VBG Base Excess O2 Delivery Device Oxygen Flow Rate Vent Mode Vent Rate Mechanical Rate Pressure Support Vent Sodium Potassium Chloride Carbon Dioxide Anion Gap BUN Creatinine Est GFR (CKD-EPI)AfAm Est GFR (CKD-EPI)NonAf Random Glucose Lactic Acid 3.1 H* Calcium Total Bilirubin AST ALT Alkaline Phosphatase Creatine Kinase CK-MB (CK-2) Troponin I 0.13 H Total Protein Albumin Urine Color Urine Appearance Urine pH Ur Specific Zoe Urine Protein Urine Glucose (UA) Urine Ketones Urine Blood Urine Nitrite Urine Bilirubin Urine Urobilinogen Ur Leukocyte Esterase Urine WBC (Auto) Urine RBC (Auto) Urine Casts (Auto) U Epithel Cells (Auto) Urine Bacteria (Auto) Influenza A (Rapid) Influenza B (Rapid) 08/12/19 08/12/19 08/12/19 19:35 19:35 19:35 WBC 14.4 H RBC 4.67 Hgb 14.0 Hct 44.9 D MCV 96.1 H MCH 29.9 MCHC 31.1 L RDW 15.1 Plt Count 270 MPV 9.2 D Absolute Neuts (auto) 13.3 H Total Counted 100 Neutrophils % 91.9 H Neutrophils % (Manual) 77.0 Band Neutrophils % 15.0 Lymphocytes % 5.0 L D Lymphocytes % (Manual) 4.0 L Monocytes % 2.9 L Monocytes % (Manual) 3 L Eosinophils % 0.0 Eosinophils % (Manual) 1.0 Basophils % 0.2 Nucleated RBC % 0 Platelet Estimate Adequate Platelet Comment No clumping noted PT with INR INR PTT (Actin FS) Anticoagulation Therapy Puncture Site ABG pH ABG pCO2 at Pt Temp ABG pO2 at Pt Temp ABG HCO3 ABG O2 Sat (Measured) ABG O2 Content ABG Base Excess Abraham Test VBG pH Cancelled POC VBG pCO2 Cancelled POC VBG pO2 Cancelled VBG HCO3 Cancelled VBG O2 Sat (Keith) Cancelled VBG Base Excess Cancelled O2 Delivery Device Oxygen Flow Rate Vent Mode Vent Rate Mechanical Rate Pressure Support Vent Sodium 159 H Potassium 4.2 Chloride 122 H Carbon Dioxide 29 Anion Gap 8 BUN 32.8 H Creatinine 0.8 Est GFR (CKD-EPI)AfAm 76.29 Est GFR (CKD-EPI)NonAf 65.82 Random Glucose 145 H Lactic Acid Calcium 9.9 Total Bilirubin 0.8 AST 59 H ALT 34 Alkaline Phosphatase 103 Creatine Kinase 238 H CK-MB (CK-2) 1.5 Troponin I Total Protein 6.8 Albumin 2.4 L Urine Color Urine Appearance Urine pH Ur Specific Zoe Urine Protein Urine Glucose (UA) Urine Ketones Urine Blood Urine Nitrite Urine Bilirubin Urine Urobilinogen Ur Leukocyte Esterase Urine WBC (Auto) Urine RBC (Auto) Urine Casts (Auto) U Epithel Cells (Auto) Urine Bacteria (Auto) Influenza A (Rapid) Influenza B (Rapid) 08/12/19 08/12/19 08/12/19 19:35 19:35 19:35 WBC RBC Hgb Hct MCV MCH MCHC RDW Plt Count MPV Absolute Neuts (auto) Total Counted Neutrophils % Neutrophils % (Manual) Band Neutrophils % Lymphocytes % Lymphocytes % (Manual) Monocytes % Monocytes % (Manual) Eosinophils % Eosinophils % (Manual) Basophils % Nucleated RBC % Platelet Estimate Platelet Comment PT with INR INR PTT (Actin FS) Anticoagulation Therapy No Result Required. Puncture Site No Result Required. ABG pH 7.47 H ABG pCO2 at Pt Temp 40.2 ABG pO2 at Pt Temp 86.7 ABG HCO3 28.5 H ABG O2 Sat (Measured) 96.5 ABG O2 Content 16.9 ABG Base Excess 4.8 H Abraham Test Positive VBG pH POC VBG pCO2 POC VBG pO2 VBG HCO3 VBG O2 Sat (Keith) VBG Base Excess O2 Delivery Device No Result Required. Oxygen Flow Rate Yes Vent Mode No Result Required. Vent Rate No Result Required. Mechanical Rate No Result Required. Pressure Support Vent No Result Required. Sodium Potassium Chloride Carbon Dioxide Anion Gap BUN Creatinine Est GFR (CKD-EPI)AfAm Est GFR (CKD-EPI)NonAf Random Glucose Lactic Acid Calcium Total Bilirubin AST ALT Alkaline Phosphatase Creatine Kinase CK-MB (CK-2) Cancelled Troponin I Total Protein Albumin Urine Color Urine Appearance Urine pH Ur Specific Zoe Urine Protein Urine Glucose (UA) Urine Ketones Urine Blood Urine Nitrite Urine Bilirubin Urine Urobilinogen Ur Leukocyte Esterase Urine WBC (Auto) Urine RBC (Auto) Urine Casts (Auto) U Epithel Cells (Auto) Urine Bacteria (Auto) Influenza A (Rapid) Negative Influenza B (Rapid) Negative 08/12/19 20:48 WBC RBC Hgb Hct MCV MCH MCHC RDW Plt Count MPV Absolute Neuts (auto) Total Counted Neutrophils % Neutrophils % (Manual) Band Neutrophils % Lymphocytes % Lymphocytes % (Manual) Monocytes % Monocytes % (Manual) Eosinophils % Eosinophils % (Manual) Basophils % Nucleated RBC % Platelet Estimate Platelet Comment PT with INR INR PTT (Actin FS) Anticoagulation Therapy Puncture Site ABG pH ABG pCO2 at Pt Temp ABG pO2 at Pt Temp ABG HCO3 ABG O2 Sat (Measured) ABG O2 Content ABG Base Excess Abraham Test VBG pH POC VBG pCO2 POC VBG pO2 VBG HCO3 VBG O2 Sat (Keith) VBG Base Excess O2 Delivery Device Oxygen Flow Rate Vent Mode Vent Rate Mechanical Rate Pressure Support Vent Sodium Potassium Chloride Carbon Dioxide Anion Gap BUN Creatinine Est GFR (CKD-EPI)AfAm Est GFR (CKD-EPI)NonAf Random Glucose Lactic Acid Calcium Total Bilirubin AST ALT Alkaline Phosphatase Creatine Kinase CK-MB (CK-2) Troponin I Total Protein Albumin Urine Color Dk yellow Urine Appearance Turbid Urine pH >= 9.0 H D Ur Specific Zoe 1.035 Urine Protein 2+ H Urine Glucose (UA) Negative Urine Ketones Negative Urine Blood Negative Urine Nitrite Negative Urine Bilirubin Negative Urine Urobilinogen 2.0 H Ur Leukocyte Esterase 2+ H Urine WBC (Auto) 241 Urine RBC (Auto) 4 Urine Casts (Auto) 29 U Epithel Cells (Auto) 12.0 Urine Bacteria (Auto) >9000 Influenza A (Rapid) Influenza B (Rapid) Intake & Output 08/10/19 08/11/19 08/12/19 08/13/19 23:59 23:59 23:59 23:59 Output Total 50 Balance -50 Weight 40.823 kg Current Medications Generic Name Dose Route Start Last Admin Trade Name Freq PRN Reason Stop Dose Admin Acetaminophen 600 mg 08/12/19 23:47 Ofirmev Injection - IVPB 08/13/19 23:46 Q6H PRN FEVER Vancomycin HCl 600 mg/ 150 mls @ 150 mls/hr 08/13/19 10:00 Dextrose IVPB Q24H [place] Protocol Piperacillin Sod/Tazobactam 50 mls @ 100 mls/hr 08/13/19 03:00 Sod 3.375 gm/ Dextrose IVPB 08/13/19 15:29 Q6H-IV [place] Protocol Piperacillin Sod/Tazobactam 50 mls @ 100 mls/hr 08/13/19 21:00 Sod 3.375 gm/ Dextrose IVPB Q6H-IV [place] Protocol Sodium Chloride 1,000 mls @ 60 mls/hr 08/13/19 02:45 1/2 Normal Saline IV ASDIR [place] Imaging - Results Chest X-ray: Image Reviewed EKG: Image Reviewed Problem List - Problems (1) Sepsis Assessment/Plan: Likely secondary to Pneumonia, UTI qSOFA 3 Sepsis Criteria Met Blood cultures-pending Urine culture-pending UA- +nitrate, leukocyte esterase, bacteria Started on Vancomycin, Zosyn, will continue renal dosing Appreciate ID consult Appreciate Pulm Consult Monitor CBC, BMP Monitor vitals Maintain MAP > 65 Ofirmev prn Code(s): A41.9 - SEPSIS, UNSPECIFIED ORGANISM (2) Pneumonia Assessment/Plan: Will treat for HAP vs Aspiration [id number] 5 Chest Xray- multifocal pneumonia Blood Cultures, Urine Legionella-pending Monitor BMP, CBC Continue Vancomycin and Zosyn Appeciate ID consult Appreciate Pulm consult Monitor vitals Continue O2 Code(s): J18.9 - PNEUMONIA, UNSPECIFIED ORGANISM (3) Acute metabolic encephalopathy Assessment/Plan: Likely secondary to Sepsis Fall Precautions Neuro checks Monitor vitals Code(s): G93.41 - METABOLIC ENCEPHALOPATHY (4) Complicated UTI (urinary tract infection) Assessment/Plan: UA- reviewed Urine Culture-pending Appreciate ID consult Continue ABX Monitor CBC Monitor vitals Code(s): N39.0 - URINARY TRACT INFECTION, SITE NOT SPECIFIED (5) Dementia Assessment/Plan: at baseline per daughter Patent is profoundly lethargic, unable to tolerate PO meds Consider Ativan IV prn Code(s): F03.90 - UNSPECIFIED DEMENTIA WITHOUT BEHAVIORAL DISTURBANCE Qualifiers: Dementia type: Alzheimer's disease (6) Failure to thrive Assessment/Plan: Albumin 2.4 Continue gentle IVF Patient's daughter is not interested in PEG at this time Code(s): [id number] - Assessment/Plan this is a 89 y/o woman with a PMhx of Dementia, Alzheimer's, HTN, HLD, Anxiety, ESBL UTI, Basal Cell Ca. Admitted for Sepsis, Pneumonia, Complicated UTI, Troponinemia, Failure to Thrive for further evaluation of their emergent condition. Plan: See Problem List FEN IVF Replete lytes prn NPO DVT ppx OOB SCDs Heparin SQ Code Status: DNR/DNI Dispo: Requires Inpatient Care Visit type - Emergency Visit Emergency Visit: Yes ED Registration Date: 08/12/19 Care time: The patient presented to the Emergency Department on the above date and was hospitalized for further evaluation of their emergent condition. - New Patient This patient is new to me today: Yes Date on this admission: 08/12/19 - Critical Care Critical Care patient: No
[2019-08-12] MEDS ORDERED: ACETAMINOPHEN 1000 MG/100 ML VIAL (NON FORMULARY) IVPB PRN ×2 (23:46→23:47)
[2019-08-13] MEDS ORDERED: SODIUM CHLORIDE 0.45% 1,000 ML IV SCH (02:45)
[2019-08-13] MEDS ORDERED: PIPERACILLIN/TAZOB 3.375 GM 3.375 GM/50 ML BAG IVPB ONE (02:53)
[2019-08-13] MEDS: PIPERACILLIN/TAZOB 3.375 GM 3.375 GM in DEXTROSE 5%-WATER - 50 ML IVPB SCH ×4 (03:03→21:49)
--- NOTE | 2019-08-13 08:10 | HOSP ---
Subjective - Review of Symptoms Events since last encounter: Hospitalist Encounter Notified by the RN that the patient remains hypotensive after NS bolus 250ml. Subjective: Arrived to bedside, patient is lethargic non-verbal at baseline. Patient is a DNR/DNI. Patient's daughter is at bedside, discussed with the daughter the goals of care. The daughter agrees to fluid boluses, but does not want aggressive measures. Discussed with the daughter about End of Life [facility]- Palliative Services, the daughter said she would speak with her brother first. Plan: Gentle IV bolus Monitor vitals Continue with current plan Physical Examination Vital Signs: Vital Signs Temperature 102 F H 08/12/19 23:14 Pulse Rate 102 H 08/13/19 03:05 Respiratory Rate 24 H 08/13/19 03:05 Blood Pressure 89/58 L 08/13/19 03:35 O2 Sat by Pulse Oximetry (%) 99 08/13/19 03:05 Constitutional: Yes: Cachectic, Mild Distress Eyes: Yes: Conjunctiva Clear, PERRL (sluggish) HENT: Yes: Atraumatic, Normocephalic, Other (dry mucous membranes) Neck: Yes: WNL, Supple, Trachea Midline Cardiovascular: Yes: Regular Rate and Rhythm, S1, S2 Respiratory: Yes: Diminished, On Nasal O2, Rhonchi Gastrointestinal: Yes: Normal Bowel Sounds, Soft ...Rectal Exam: Yes: Deferred Renal/: Yes: Incontinence Breast(s): Yes: WNL Musculoskeletal: Yes: WNL Extremities: Yes: WNL Edema: No Peripheral Pulses WNL: Yes Neurological: Yes: Lethargy Labs: CBC, BMP 08/12/19 19:35 08/12/19 19:35 Last Vital Signs Temp Pulse Resp BP Pulse Ox 102 F H 102 H 24 H 89/58 L 99 08/12/19 23:14 08/13/19 03:05 08/13/19 03:05 08/13/19 03:35 08/13/19 03:05 Hospitalist Encounter Recommendations/Interventions: Palliative Care consult, if family agrees Critical Care Total Critical Care Time (in minutes): 32 Critical Care Statement: The care of this patient involved high complexity d ecision making to prevent further life threatening deterioration of the patient's condition and/or to evaluate & treat vital organ system(s) failure or risk of failure.
[2019-08-13 08:23] VITALS: BMI 14.3
[2019-08-13] MEDS ORDERED: PIPERACILLIN/TAZOBACTAM 3.375 GM VIAL IVPB ONE ×3 (08:38→21:43)
[2019-08-13] MEDS ORDERED: DEXTROSE 5%-WATER - 50 ML IVPB ONE ×3 (08:39→21:43)
--- NOTE | 2019-08-13 10:01 | CON.PULM ---
Consult Consult Specialty:: PULM/CCM Referred by:: RONNI Reason for Consultation:: SOB - History of Present Illness Chief Complaint: SOB History of Present Illness: 89 F, Alzheimer's Dementia, HTN, HLD, Anxiety, ESBL UTI, HTN, HLD, and Basal Cell Carcinoma. Recent admission 07/18-07/22 for Fecal Impaction. Admitted via the ER due to cough, fever, and altered mental status x 3 days. Patient is unable to provide history but her daughter is here at the bedside. No travel history or sick contacts. No hemoptysis. 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 No: Asthma, Bronchitis, Cancer, COPD, O2 Dependent, Previously Intubated, Pulmonary Embolus, Pulmonary Fibrosis, Sleep Apnea Gastrointestinal: Yes: GERD ...: No - Alcohol/Substance Use Hx Alcohol Use: No - Smoking History Smoking history: Never smoked Have you smoked in the past 12 months: No - Social History ADL: Family Assistance History of Recent Travel: No Home Medications - Allergies Allergies/Adverse Reactions: Allergies Allergy/AdvReac Type Severity Reaction Status Date / Time No Known Allergies Allergy Verified 08/12/19 18:57 - Home Medications Home Medications: Ambulatory Orders Alprazolam [Alprazolam ER] 2 mg PO BID PRN 09/13/17 Haloperidol 2 mg PO PRN 09/13/17 Zolpidem Tartrate [Ambien] 5 mg PO HS 02/03/18 Polyethylene Glycol 3350 [Miralax 119 gm Btl -] 17 gm PO DAILY #1 bottle 07/22/19 Review of Systems Unable to obtain ROS, reason: Not able to provide Physical Exam Vital Sings: Vital Signs Temperature 97.6 F 08/13/19 03:50 Pulse Rate 54 L 08/13/19 03:50 Respiratory Rate 30 H 08/13/19 03:50 Blood Pressure 70/42 L 08/13/19 03:50 O2 Sat by Pulse Oximetry (%) 100 08/13/19 03:50 Constitutional: Yes: Mild Distress, Thin Eyes: Yes: Conjunctiva Clear, EOM Intact HENT: Yes: Atraumatic, Normocephalic Neck: Yes: Supple, Trachea Midline Cardiovascular: Yes: Tachycardia Respiratory: Yes: Accessory Muscle Use, Cough, Diminished, Rhonchi, SOB, Tachypnea, Other (On NRBM ). No: Rales, Stridor, Wheezes ...Inspection: Yes: WNL ...Clubbing: No Gastrointestinal: Yes: Soft Extremities: Yes: WNL Edema: No Peripheral Pulses WNL: Yes Integumentary: Yes: WNL Neurological: Yes: Confusion, Lethargy Labs: CBC, BMP 08/12/19 19:35 08/12/19 19:35 ABG Results ABG pH 7.47 (7.35-7.45) H 08/12/19 19:35 ABG pCO2 at Pt Temp 40.2 mmHg (35-45) 08/12/19 19:35 ABG pO2 at Pt Temp 86.7 mmHg (80-100) 08/12/19 19:35 ABG HCO3 28.5 mmol/L (22-27) H 08/12/19 19:35 ABG O2 Sat (Measured) 96.5 % (95-98) 08/12/19 19:35 ABG O2 Content 16.9 % vol 08/12/19 19:35 ABG Base Excess 4.8 meq/l (-2-2) H 08/12/19 19:35 Imaging - Results Chest X-ray: Report Reviewed, Image Reviewed Problem List - Problems (1) Acute metabolic encephalopathy Code(s): G93.41 - METABOLIC ENCEPHALOPATHY (2) Pneumonia Code(s): J18.9 - PNEUMONIA, UNSPECIFIED ORGANISM (3) Altered mental status Code(s): R41.82 - ALTERED MENTAL STATUS, UNSPECIFIED (4) Dementia Code(s): F03.90 - UNSPECIFIED DEMENTIA WITHOUT BEHAVIORAL DISTURBANCE Qualifiers: Dementia type: Alzheimer's disease (5) Failure to thrive Code(s): UUZ6359 - (6) Fecal impaction Code(s): K56.41 - FECAL IMPACTION (7) Hypertension Code(s): I10 - ESSENTIAL (PRIMARY) HYPERTENSION (8) Malnutrition Code(s): E46 - UNSPECIFIED PROTEIN-CALORIE MALNUTRITION Assessment/Plan ABX per ID Aspiration precautions No indication for systemic steroids Follow cultures Supplemental O2 to maintain saturation Patient is DNR/DNI Will follow Thank you. Dr Zepeda
--- NOTE | 2019-08-13 11:04 | PN ---
Progress Note (short form) - Note Progress Note: events noted spoke with daughter Kayy pt is lethargic hypotensive Vital Signs - 24 hr 08/12/19 08/12/19 08/12/19 18:57 19:55 21:14 Temperature 103 F H Pulse Rate 140 H Pulse Rate [ 110 H Left Radial] Respiratory 26 H 23 H Rate Blood Pressure 128/79 Blood Pressure 146/68 [Right Arm] O2 Sat by Pulse 81 L 92 L 92 L Oximetry (%) 08/12/19 08/13/19 08/13/19 23:14 03:05 03:35 Temperature 102 F H Pulse Rate Pulse Rate [ 114 H 102 H Left Radial] Respiratory 28 H 24 H Rate Blood Pressure Blood Pressure 110/62 86/59 L 89/58 L [Right Arm] O2 Sat by Pulse 100 99 Oximetry (%) 08/13/19 03:50 Temperature 97.6 F Pulse Rate 54 L Pulse Rate [ Left Radial] Respiratory 30 H Rate Blood Pressure 70/42 L Blood Pressure [Right Arm] O2 Sat by Pulse 100 Oximetry (%) Current Medications Generic Name Dose Route Start Last Admin Trade Name Freq PRN Reason Stop Dose Admin Acetaminophen 600 mg 08/12/19 23:47 Ofirmev Injection - IVPB 08/13/19 23:46 Q6H PRN FEVER Vancomycin HCl 600 mg/ 100 mls @ 100 mls/hr 08/13/19 21:30 Dextrose IVPB Q24H [place] Protocol Piperacillin Sod/Tazobactam 50 mls @ 100 mls/hr 08/13/19 03:00 08/13/19 08:43 Sod 3.375 gm/ Dextrose IVPB 08/13/19 15:29 100 mls/hr Q6H-IV [place] Administration Protocol Piperacillin Sod/Tazobactam 50 mls @ 100 mls/hr 08/13/19 21:00 Sod 3.375 gm/ Dextrose IVPB Q6H-IV [place] Protocol Sodium Chloride 1,000 mls @ 60 mls/hr 08/13/19 02:45 08/13/19 03:03 1/2 Normal Saline IV 60 mls/hr ASDIR [place] Administration Laboratory Results - last 24 hr 08/12/19 08/12/19 08/12/19 19:13 19:35 19:35 WBC RBC Hgb Hct MCV MCH MCHC RDW Plt Count MPV Absolute Neuts (auto) Total Counted Neutrophils % Neutrophils % (Manual) Band Neutrophils % Lymphocytes % Lymphocytes % (Manual) Monocytes % Monocytes % (Manual) Eosinophils % Eosinophils % (Manual) Basophils % Nucleated RBC % Platelet Estimate Platelet Comment PT with INR 12.90 INR 1.09 PTT (Actin FS) 34.7 Anticoagulation Therapy Puncture Site ABG pH ABG pCO2 at Pt Temp ABG pO2 at Pt Temp ABG HCO3 ABG O2 Sat (Measured) ABG O2 Content ABG Base Excess Abraham Test VBG pH POC VBG pCO2 POC VBG pO2 VBG HCO3 VBG O2 Sat (Keith) VBG Base Excess O2 Delivery Device Oxygen Flow Rate Vent Mode Vent Rate Mechanical Rate Pressure Support Vent Sodium Potassium Chloride Carbon Dioxide Anion Gap BUN Creatinine Est GFR (CKD-EPI)AfAm Est GFR (CKD-EPI)NonAf Random Glucose Lactic Acid 3.1 H* Calcium Phosphorus Magnesium Total Bilirubin AST ALT Alkaline Phosphatase Creatine Kinase Creatine Kinase Index CK-MB (CK-2) Troponin I 0.13 H Total Protein Albumin Urine Color Urine Appearance Urine pH Ur Specific Reynolds Urine Protein Urine Glucose (UA) Urine Ketones Urine Blood Urine Nitrite Urine Bilirubin Urine Urobilinogen Ur Leukocyte Esterase Urine WBC (Auto) Urine RBC (Auto) Urine Casts (Auto) U Epithel Cells (Auto) Urine Bacteria (Auto) Influenza A (Rapid) Influenza B (Rapid) 08/12/19 08/12/19 08/12/19 19:35 19:35 19:35 WBC 14.4 H RBC 4.67 Hgb 14.0 Hct 44.9 D MCV 96.1 H MCH 29.9 MCHC 31.1 L RDW 15.1 Plt Count 270 MPV 9.2 D Absolute Neuts (auto) 13.3 H Total Counted 100 Neutrophils % 91.9 H Neutrophils % (Manual) 77.0 Band Neutrophils % 15.0 Lymphocytes % 5.0 L D Lymphocytes % (Manual) 4.0 L Monocytes % 2.9 L Monocytes % (Manual) 3 L Eosinophils % 0.0 Eosinophils % (Manual) 1.0 Basophils % 0.2 Nucleated RBC % 0 Platelet Estimate Adequate Platelet Comment No clumping noted PT with INR INR PTT (Actin FS) Anticoagulation Therapy Puncture Site ABG pH ABG pCO2 at Pt Temp ABG pO2 at Pt Temp ABG HCO3 ABG O2 Sat (Measured) ABG O2 Content ABG Base Excess Abraham Test VBG pH Cancelled POC VBG pCO2 Cancelled POC VBG pO2 Cancelled VBG HCO3 Cancelled VBG O2 Sat (Keith) Cancelled VBG Base Excess Cancelled O2 Delivery Device Oxygen Flow Rate Vent Mode Vent Rate Mechanical Rate Pressure Support Vent Sodium 159 H Potassium 4.2 Chloride 122 H Carbon Dioxide 29 Anion Gap 8 BUN 32.8 H Creatinine 0.8 Est GFR (CKD-EPI)AfAm 76.29 Est GFR (CKD-EPI)NonAf 65.82 Random Glucose 145 H Lactic Acid Calcium 9.9 Phosphorus Magnesium Total Bilirubin 0.8 AST 59 H ALT 34 Alkaline Phosphatase 103 Creatine Kinase 238 H Creatine Kinase Index 0.6 CK-MB (CK-2) 1.5 Troponin I Total Protein 6.8 Albumin 2.4 L Urine Color Urine Appearance Urine pH Ur Specific Reynolds Urine Protein Urine Glucose (UA) Urine Ketones Urine Blood Urine Nitrite Urine Bilirubin Urine Urobilinogen Ur Leukocyte Esterase Urine WBC (Auto) Urine RBC (Auto) Urine Casts (Auto) U Epithel Cells (Auto) Urine Bacteria (Auto) Influenza A (Rapid) Influenza B (Rapid) 08/12/19 08/12/19 08/12/19 19:35 19:35 19:35 WBC RBC Hgb Hct MCV MCH MCHC RDW Plt Count MPV Absolute Neuts (auto) Total Counted Neutrophils % Neutrophils % (Manual) Band Neutrophils % Lymphocytes % Lymphocytes % (Manual) Monocytes % Monocytes % (Manual) Eosinophils % Eosinophils % (Manual) Basophils % Nucleated RBC % Platelet Estimate Platelet Comment PT with INR INR PTT (Actin FS) Anticoagulation Therapy No Result Required. Puncture Site No Result Required. ABG pH 7.47 H ABG pCO2 at Pt Temp 40.2 ABG pO2 at Pt Temp 86.7 ABG HCO3 28.5 H ABG O2 Sat (Measured) 96.5 ABG O2 Content 16.9 ABG Base Excess 4.8 H Abraham Test Positive VBG pH POC VBG pCO2 POC VBG pO2 VBG HCO3 VBG O2 Sat (Keith) VBG Base Excess O2 Delivery Device No Result Required. Oxygen Flow Rate Yes Vent Mode No Result Required. Vent Rate No Result Required. Mechanical Rate No Result Required. Pressure Support Vent No Result Required. Sodium Potassium Chloride Carbon Dioxide Anion Gap BUN Creatinine Est GFR (CKD-EPI)AfAm Est GFR (CKD-EPI)NonAf Random Glucose Lactic Acid Calcium Phosphorus Magnesium Total Bilirubin AST ALT Alkaline Phosphatase Creatine Kinase Creatine Kinase Index CK-MB (CK-2) Cancelled Troponin I Total Protein Albumin Urine Color Urine Appearance Urine pH Ur Specific Reynolds Urine Protein Urine Glucose (UA) Urine Ketones Urine Blood Urine Nitrite Urine Bilirubin Urine Urobilinogen Ur Leukocyte Esterase Urine WBC (Auto) Urine RBC (Auto) Urine Casts (Auto) U Epithel Cells (Auto) Urine Bacteria (Auto) Influenza A (Rapid) Negative Influenza B (Rapid) Negative 08/12/19 08/13/19 08/13/19 20:48 11:10 11:10 WBC 10.9 H RBC 3.76 Hgb 11.5 Hct 36.3 D MCV 96.5 H MCH 30.6 MCHC 31.7 L RDW 14.7 Plt Count 171 D MPV 9.0 Absolute Neuts (auto) 9.8 H Total Counted Neutrophils % 89.4 H Neutrophils % (Manual) Band Neutrophils % Lymphocytes % 7.9 L D Lymphocytes % (Manual) Monocytes % 2.3 L Monocytes % (Manual) Eosinophils % 0.1 D Eosinophils % (Manual) Basophils % 0.3 Nucleated RBC % 0 Platelet Estimate Platelet Comment PT with INR INR PTT (Actin FS) Anticoagulation Therapy Puncture Site ABG pH ABG pCO2 at Pt Temp ABG pO2 at Pt Temp ABG HCO3 ABG O2 Sat (Measured) ABG O2 Content ABG Base Excess Abraham Test VBG pH POC VBG pCO2 POC VBG pO2 VBG HCO3 VBG O2 Sat (Keith) VBG Base Excess O2 Delivery Device Oxygen Flow Rate Vent Mode Vent Rate Mechanical Rate Pressure Support Vent Sodium 158 H Potassium 3.5 Chloride 121 H Carbon Dioxide 33 H Anion Gap 4 L BUN 25.6 H Creatinine 0.7 Est GFR (CKD-EPI)AfAm 89.66 Est GFR (CKD-EPI)NonAf 77.36 Random Glucose 120 H Lactic Acid Calcium 8.7 Phosphorus 3.1 Magnesium 2.4 Total Bilirubin AST ALT Alkaline Phosphatase Creatine Kinase Creatine Kinase Index CK-MB (CK-2) Troponin I 0.07 H Total Protein Albumin Urine Color Dk yellow Urine Appearance Turbid Urine pH >= 9.0 H D Ur Specific Reynolds 1.035 Urine Protein 2+ H Urine Glucose (UA) Negative Urine Ketones Negative Urine Blood Negative Urine Nitrite Negative Urine Bilirubin Negative Urine Urobilinogen 2.0 H Ur Leukocyte Esterase 2+ H Urine WBC (Auto) 241 Urine RBC (Auto) 4 Urine Casts (Auto) 29 U Epithel Cells (Auto) 12.0 Urine Bacteria (Auto) >9000 Influenza A (Rapid) Influenza B (Rapid) 08/13/19 11:10 WBC RBC Hgb Hct MCV MCH MCHC RDW Plt Count MPV Absolute Neuts (auto) Total Counted Neutrophils % Neutrophils % (Manual) Band Neutrophils % Lymphocytes % Lymphocytes % (Manual) Monocytes % Monocytes % (Manual) Eosinophils % Eosinophils % (Manual) Basophils % Nucleated RBC % Platelet Estimate Platelet Comment PT with INR INR PTT (Actin FS) Anticoagulation Therapy Puncture Site ABG pH ABG pCO2 at Pt Temp ABG pO2 at Pt Temp ABG HCO3 ABG O2 Sat (Measured) ABG O2 Content ABG Base Excess Abraham Test VBG pH POC VBG pCO2 POC VBG pO2 VBG HCO3 VBG O2 Sat (Keith) VBG Base Excess O2 Delivery Device Oxygen Flow Rate Vent Mode Vent Rate Mechanical Rate Pressure Support Vent Sodium Potassium Chloride Carbon Dioxide Anion Gap BUN Creatinine Est GFR (CKD-EPI)AfAm Est GFR (CKD-EPI)NonAf Random Glucose Lactic Acid 2.1 H Calcium Phosphorus Magnesium Total Bilirubin AST ALT Alkaline Phosphatase Creatine Kinase Creatine Kinase Index CK-MB (CK-2) Troponin I Total Protein Albumin Urine Color Urine Appearance Urine pH Ur Specific Reynolds Urine Protein Urine Glucose (UA) Urine Ketones Urine Blood Urine Nitrite Urine Bilirubin Urine Urobilinogen Ur Leukocyte Esterase Urine WBC (Auto) Urine RBC (Auto) Urine Casts (Auto) U Epithel Cells (Auto) Urine Bacteria (Auto) Influenza A (Rapid) Influenza B (Rapid) S1 S2 RRR Lungs decreased Abd- soft, NT no edema cachetic A/P Pneumonia Advanced dementia failure to thrive metabolic encephalopathy severe malnutrition -- iv fluids -- iv antibiotics -- supportive care -- spoke with daughter and she spoke with rest of her family-->agreeable for hospice care at this time -- she has frequent hospitalizations and they are opting for comfort care -- palliative eval -- pt is DNR/DNI Problem List - Problems (1) Pneumonia Code(s): J18.9 - PNEUMONIA, UNSPECIFIED ORGANISM (2) Acute metabolic encephalopathy Code(s): G93.41 - METABOLIC ENCEPHALOPATHY (3) Pneumonia Code(s): J18.9 - PNEUMONIA, UNSPECIFIED ORGANISM (4) Sepsis Code(s): A41.9 - SEPSIS, UNSPECIFIED ORGANISM (5) Altered mental status Code(s): R41.82 - ALTERED MENTAL STATUS, UNSPECIFIED (6) Anxiety Code(s): F41.9 - ANXIETY DISORDER, UNSPECIFIED
[2019-08-13 12:21] LABS: BASO % 0.3 % (0-2.0); EOS % 0.1 % (0-4.5); HEMATOCRIT 36.3 % (32.4-45.2); HEMOGLOBIN 11.5 GM/dL (10.7-15.3); LYMPH % 7.9 % (8-40); MCH 30.6 pg (25.7-33.7); MCHC 31.7 g/dl (32.0-36.0); MEAN CELL VOLUME 96.5 fl (80-96); MONO % 2.3 % (3.8-10.2); NEUT % 89.4 % (42.8-82.8); PLATELET COUNT 171 K/MM3 (134-434); RBC 3.76 M/mm3 (3.60-5.2); RDW 14.7 % (11.6-15.6); WHITE BLOOD COUNT 10.9 K/mm3 (4.0-10.0)
[2019-08-13 12:58] LABS: BLOOD UREA NITROGEN 25.6 mg/dL (7-18); CALCIUM 8.7 mg/dL (8.5-10.1); CREATININE 0.7 mg/dL (0.55-1.3); MAGNESIUM 2.4 mg/dL (1.8-2.4); PHOSPHOROUS 3.1 mg/dL (2.5-4.9); POTASSIUM 3.5 mmol/L (3.5-5.1)
--- NOTE | 2019-08-13 14:01 | EKG ---
Test Reason : Blood Pressure : / mmHG Vent. Rate : 145 BPM Atrial Rate : 145 BPM P-R Int : 124 ms QRS Dur : 064 ms QT Int : 382 ms P-R-T Axes : 070 -73 096 degrees QTc Int : 593 ms SINUS TACHYCARDIA with PACs LEFT AXIS DEVIATION INFERIOR INFARCT (CITED ON OR BEFORE 18-JUL-2019) ABNORMAL ECG WHEN COMPARED WITH ECG OF 18-JUL-2019 08:44, NONSPECIFIC T WAVE ABNORMALITY NO LONGER EVIDENT IN INFERIOR LEADS Confirmed by CHRISTOPH BRUNO MD ([id number]) on 08/13/2019 2:01:14 PM Referred By: Confirmed By:CHRISTOPH BRUNO MD
[2019-08-13] MEDS ORDERED: PT OWN MED DRAWER 7, Y5N ONE (15:15)
--- NOTE | 2019-08-13 15:34 | CONSULT ---
Consult Consult Specialty:: Nephrology Reason for Consultation:: hypotension and hypernatremia - History of Present Illness Chief Complaint: fever and altered mental status History of Present Illness: Pt is an 89 year old female with pmhx of dementia, htn, hld, anxiety, esbl uti, fecal impaction who presents to the ER with altered mental status. She was found to be hypernatremic and I was called to evaluate her. She is awake but not very interactive. Her family are at bedside and assisted with history. She has been having a productive cough. She did have fever. She has also had decreased PO intake. - History Source History Provided By: Family Member, Medical Record - Past Medical History APARTMENT MANAGER: Yes: Alzheimer's, Dementia Cardio/Vascular: Yes: HTN, Hyperlipdemia, Murmur Pulmonary: Yes: Pneumonia Gastrointestinal: Yes: GERD ...: No - Alcohol/Substance Use Hx Alcohol Use: No - Smoking History Smoking history: Never smoked Have you smoked in the past 12 months: No - Social History ADL: Family Assistance History of Recent Travel: No Home Medications - Allergies Allergies/Adverse Reactions: Allergies Allergy/AdvReac Type Severity Reaction Status Date / Time No Known Allergies Allergy Verified 08/12/19 18:57 - Home Medications Home Medications: Ambulatory Orders Alprazolam [Alprazolam ER] 2 mg PO BID PRN 09/13/17 Haloperidol 2 mg PO PRN 09/13/17 Zolpidem Tartrate [Ambien] 5 mg PO HS 02/03/18 Polyethylene Glycol 3350 [Miralax 119 gm Btl -] 17 gm PO DAILY #1 bottle 0 07/22/19 Family Medical History Family History: Denies Review of Systems Unable to obtain ROS, reason: dementia Physical Exam Vital Signs: Vital Signs Temperature 97.7 F 08/13/19 15:04 Pulse Rate 87 08/13/19 15:04 Respiratory Rate 18 08/13/19 15:04 Blood Pressure 86/50 L 08/13/19 15:04 O2 Sat by Pulse Oximetry (%) 100 08/13/19 03:50 Constitutional: Yes: Calm, Mild Distress Eyes: Yes: Conjunctiva Clear HENT: Yes: Atraumatic Cardiovascular: Yes: S1, S2 Respiratory: Yes: On Venti-Mask Gastrointestinal: Yes: Soft Renal/: Yes: WNL Musculoskeletal: Yes: Muscle Weakness Edema: No Neurological: Yes: Confusion Labs: CBC, BMP 08/13/19 11:10 08/13/19 11:10 Laboratory Tests 08/12/19 08/12/19 08/12/19 19:13 19:35 19:35 WBC 14.4 H Sodium 159 H Lactic Acid 3.1 H* 08/13/19 08/13/19 08/13/19 11:10 11:10 11:10 WBC 10.9 H Sodium 158 H Lactic Acid 2.1 H Imaging - Results Chest X-ray: Report Reviewed Problem List - Problems (1) Pneumonia Code(s): J18.9 - PNEUMONIA, UNSPECIFIED ORGANISM (2) Sepsis Code(s): A41.9 - SEPSIS, UNSPECIFIED ORGANISM Assessment/Plan Current Medications Generic Name Dose Route Start Last Admin Trade Name Freq PRN Reason Stop Dose Admin Acetaminophen 600 mg 08/12/19 23:47 Ofirmev Injection - IVPB 08/13/19 23:46 Q6H PRN FEVER Vancomycin HCl 600 mg/ 100 mls @ 100 mls/hr 08/13/19 21:30 Dextrose IVPB Q24H [place] Protocol Piperacillin Sod/Tazobactam 50 mls @ 100 mls/hr 08/13/19 21:00 Sod 3.375 gm/ Dextrose IVPB Q6H-IV [place] Protocol Sodium Chloride 1,000 mls @ 60 mls/hr 08/13/19 02:45 08/13/19 03:03 1/2 Normal Saline IV 60 mls/hr ASDIR [place] Administration Impression 1. hypotension 2. hypernatremia 3. sepsis 4. pna 5. dementia 6. hld Plan - cont with 1/2 ns as she is hypotensive - switch fluids to d5w if bp improves - follow cultures - cont abx - discussed with family - hypernatremia likely from decrease free water in take
--- NOTE | 2019-08-13 15:45 | PN ---
Progress Note (short form) - Note Progress Note: ID consult dictated imp/reccd 89 yo female lives at home with her son- severe dementia requires total care admitted with fever 103, cough with thick sputum production, hypotension started on vanco/zosyn in ED sepsis dehydration pneumonia UTI severe dementia sacral ulcer continue zosyn/vancomycin f/u cultures continue IVF d/w daughter at bedside family has opted for palliative care Problem List - Problems (1) Sepsis Code(s): A41.9 - SEPSIS, UNSPECIFIED ORGANISM (2) Pneumonia Code(s): J18.9 - PNEUMONIA, UNSPECIFIED ORGANISM (3) UTI (urinary tract infection) Code(s): N39.0 - URINARY TRACT INFECTION, SITE NOT SPECIFIED Qualifiers: Urinary tract infection type: acute cystitis (4) Dementia Code(s): F03.90 - UNSPECIFIED DEMENTIA WITHOUT BEHAVIORAL DISTURBANCE Qualifiers: Dementia type: Alzheimer's disease
[2019-08-13] MEDS: POTASSIUM CHLORIDE 10 MEQ in SODIUM CHLORIDE 0.45% 1,000 ML IVPB SCH (17:35)
--- NOTE | 2019-08-13 18:09 | CONS ---
DATE OF CONSULTATION: DATE OF DICTATION: 08/13/2019 This is an 89-year-old woman recently admitted July 18 for fecal impaction, who is now re-admitted with cough and fever and lethargy. She resides at home with her son. She has a daytime home health aide. She requires total care and has severe dementia. She has had an intermittent cough, the daughter reports, for the last 2 weeks, she thinks maybe intermittent fever, they never took her temperature. She has been eating soups and puddings at home. She has been coughing, having thick mucus production with cough. Daughter denies any vomiting at home. Her past medical history is notable for severe dementia, hypertension, hyperlipidemia, and GERD, recent fecal impaction. SOCIAL HISTORY: There is no history of any cigarette, alcohol, or substance use. She has no known drug allergies. Her medications at home include alprazolam, Haldol p.r.n., Ambien, and MiraLax. HOSPITAL COURSE: She was admitted with a fever of 103. She was noted on x-ray to have pneumonia. She was started on piperacillin/tazobactam for aspiration pneumonia. Overnight, she developed hypotension. Her blood pressure was 70/42. The family was spoken to. They have agreed to hospice care but wish to continue fluids and antibiotics at this time. Per the daughter who is at the bedside, she is much more awake at this point. PHYSICAL EXAMINATION: Vital Signs: Her temperature is 97.7, T-max was 103 on admission. Pulse of 87. Blood pressure 86/50. Respiratory rate 18. She weighs 39 kg. General: She is pretty responsive at this time. She has a Ventimask on. She does not follow any commands. HEENT: Normocephalic. Her eyes are anicteric. Heart: Regular rate and rhythm. Lungs: Her lungs have scattered rhonchi. Abdomen: Soft, nontender. She has no palpable masses. Extremities: Without edema. White count on admission was 14.4, today is 10.9, hemoglobin 11.5, platelets 171. Her BUN is 25 and creatinine 0.7 today. The urinalysis has 2+ leukocytes with 241 white cells. X-ray is notable for bilateral scattered infiltrates. Of note, she has cervical hardware, so she has had prior cervical spine surgery. In summary, this is an 89-year-old woman with severe dementia, admitted from home with sepsis, pneumonia, probable UTI, dehydration. Would continue her on the piperacillin and tazobactam, which should cover her both for urinary pathogens as well as hospital-acquired aspiration pneumonia. Family has elected to treat her conservatively, so will follow up the cultures and see how she does. ROQUE WASHINGTON M.D. ALEXEY/[id number]
[2019-08-13] MEDS ORDERED: VANCOMYCIN 500 MG in DEXTROSE 5%-WATER 100 ML IVPB SCH (20:00)
[2019-08-13] MEDS ORDERED: VANCOMYCIN IVPB SCH (21:30)
[2019-08-13] MEDS ORDERED: DEXTROSE 5% IVPB SCH (21:30)
[2019-08-13] MEDS ORDERED: WATER IVPB SCH (21:30)
[2019-08-13] MEDS ORDERED: VANCOMYCIN 500 MG VIAL (RESTRICTED TO ID ONLY) ONE (21:43)
[2019-08-13] MEDS ORDERED: DEXTROSE 5%-WATER 100 ML IVPB ONE (21:43)
[2019-08-14] MEDS ORDERED: PIPERACILLIN/TAZOBACTAM 3.375 GM VIAL IVPB ONE ×4 (03:25→21:10)
[2019-08-14] MEDS ORDERED: DEXTROSE 5%-WATER - 50 ML IVPB ONE ×4 (03:26→21:11)
[2019-08-14] MEDS: PIPERACILLIN/TAZOB 3.375 GM 3.375 GM in DEXTROSE 5%-WATER - 50 ML IVPB SCH ×4 (03:27→21:40)
[2019-08-14] MEDS: POTASSIUM CHLORIDE 10 MEQ in SODIUM CHLORIDE 0.45% 1,000 ML IVPB SCH ×2 (05:45→09:00)
[2019-08-14 09:01] LABS: BLOOD UREA NITROGEN 22.1 mg/dL (7-18); CREATININE 0.6 mg/dL (0.55-1.3); POTASSIUM 3.4 mmol/L (3.5-5.1)
--- NOTE | 2019-08-14 11:36 | PN ---
Progress Note (short form) - Note Progress Note: Pt seen/ examined chart is reviewed awake/ comfortable daughter at bedside pt denies pain engages in simple conversation. Vital Signs Temp 98.7 F 08/14/19 06:00 Pulse 86 08/14/19 06:00 Resp 18 08/14/19 06:00 BP 75/45 L 08/13/19 18:00 Pulse Ox 99 08/13/19 21:00 Intake & Output 08/13/19 08/13/19 08/14/19 11:59 23:59 11:59 Intake Total 520 Balance 520 Weight 86 lb 86 lb Intake: IV 420 1/2 NS w/ KCL 10 meq. @ 120 83/hr. 1/2 Normal Saline 1,000 300 ml @ 60 mls/hr IV ASDIR [place] Rx#:[id number] IVPB 100 Other: Voiding Method Incontinent Incontinent Incontinent Bowel Movement No Height 5 ft 5 in 5 ft 5 in Body Mass Index (BMI) 14.3 14.3 Active Medications Piperacillin Sod/Tazobactam (Sod 3.375 gm/ Dextrose) 50 mls @ 100 mls/hr IVPB Q6H-IV [place]; Protocol Last Admin: 08/14/19 09:05 Dose: 100 mls/hr Documented by: Vancomycin HCl 500 mg/ (Dextrose) 100 mls @ 100 mls/hr IVPB Q24H [place]; Protocol Last Admin: 08/13/19 20:49 Dose: 100 mls/hr Documented by: Potassium Chloride 10 meq/ (Sodium Chloride) 1,005 mls @ 83 mls/hr IVPB Q12H [place] Last Admin: 08/14/19 09:00 Dose: 83 mls/hr Documented by: CBC, BMP 08/13/19 11:10 08/14/19 07:45 Microbiology 08/12/19 20:48 Urine Culture - Preliminary Urine - Urine - Catheterized Lactose Fermenting Neg Bacilli Proteus Species 08/12/19 19:15 Blood Culture - Preliminary Blood - Peripheral Venous NO GROWTH OBTAINED AFTER 24 HOURS, INCUBATION TO CONTINUE FOR 4 DAYS. 08/12/19 19:15 Blood Culture - Preliminary Blood - Peripheral Venous NO GROWTH OBTAINED AFTER 24 HOURS, INCUBATION TO CONTINUE FOR 4 DAYS. Physical Exam Awake/ Comfortable S1 S2 RRR Lungs decreased Abd- soft, no edema A/P Pneumonia Advanced dementia failure to thrive metabolic encephalopathy severe malnutrition -- iv fluids -- iv antibiotics -- supportive care -- spoke with daughter and she spoke with rest of her family-->agreeable for hospice care at this time -- she has frequent hospitalizations and they are opting for comfort care -- palliative eval -- pt is DNR/DNI - - start on puree diet -- per daughter - she wants to eat- d/w Rn also _ Problem List - Problems (1) Pneumonia Code(s): J18.9 - PNEUMONIA, UNSPECIFIED ORGANISM (2) Acute metabolic encephalopathy Code(s): G93.41 - METABOLIC ENCEPHALOPATHY (3) Pneumonia Code(s): J18.9 - PNEUMONIA, UNSPECIFIED ORGANISM (4) Sepsis Code(s): A41.9 - SEPSIS, UNSPECIFIED ORGANISM (5) Altered mental status Code(s): R41.82 - ALTERED MENTAL STATUS, UNSPECIFIED (6) Anxiety Code(s): F41.9 - ANXIETY DISORDER, UNSPECIFIED
--- NOTE | 2019-08-14 14:46 | PN ---
Progress Note, Physician History of Present Illness: PULMONARY ALERT,NO DISTRESS,-CONGESTION - Current Medication List Current Medications: Active Medications Piperacillin Sod/Tazobactam (Sod 3.375 gm/ Dextrose) 50 mls @ 100 mls/hr IVPB Q6H-IV [place]; Protocol Last Admin: 08/14/19 09:05 Dose: 100 mls/hr Documented by: Vancomycin HCl 500 mg/ (Dextrose) 100 mls @ 100 mls/hr IVPB Q24H [place]; Protocol Last Admin: 08/13/19 20:49 Dose: 100 mls/hr Documented by: Potassium Chloride 10 meq/ (Sodium Chloride) 1,005 mls @ 83 mls/hr IVPB Q12H [place] Last Admin: 08/14/19 09:00 Dose: 83 mls/hr Documented by: - Objective Vital Signs: Vital Signs Temperature 98.7 F 08/14/19 12:57 Pulse Rate 85 08/14/19 12:57 Respiratory Rate 18 08/14/19 12:57 Blood Pressure 103/45 L 08/14/19 12:57 O2 Sat by Pulse Oximetry (%) 99 08/14/19 09:00 Constitutional: Yes: Calm, Cachectic Eyes: Yes: WNL HENT: Yes: WNL Neck: Yes: WNL Cardiovascular: Yes: Regular Rate and Rhythm, S1, S2 Respiratory: Yes: Diminished Gastrointestinal: Yes: Normal Bowel Sounds, Soft Extremities: Yes: WNL Edema: No Labs: CBC, BMP 08/13/19 11:10 08/14/19 07:45 INR, PTT INR 1.09 (0.83-1.09) 08/12/19 19:35 Assessment/Plan Problem List - Problems (1) Acute metabolic encephalopathy Code(s): G93.41 - METABOLIC ENCEPHALOPATHY (2) Pneumonia Code(s): J18.9 - PNEUMONIA, UNSPECIFIED ORGANISM (3) Altered mental status Code(s): R41.82 - ALTERED MENTAL STATUS, UNSPECIFIED (4) Dementia Code(s): F03.90 - UNSPECIFIED DEMENTIA WITHOUT BEHAVIORAL DISTURBANCE Qualifiers: Dementia type: Alzheimer's disease (5) Failure to thrive Code(s): CWI0020 - (6) Fecal impaction Code(s): K56.41 - FECAL IMPACTION (7) Hypertension Code(s): I10 - ESSENTIAL (PRIMARY) HYPERTENSION (8) Malnutrition Code(s): E46 - UNSPECIFIED PROTEIN-CALORIE MALNUTRITION 9 HYPERNATREMIA Assessment/Plan ABX per ID Aspiration precautions No indication for systemic steroids Supplemental O2 to maintain saturation Patient is DNR/DNI Monitor CRISTINA houser IVF DR HANSON
--- NOTE | 2019-08-14 14:47 | PN ---
Progress Note, Physician History of Present Illness: Pt seen and examined at bedside. She is more awake and alert today. Her family are at bedside. BP is starting to improve. - Current Medication List Current Medications: Active Medications Piperacillin Sod/Tazobactam (Sod 3.375 gm/ Dextrose) 50 mls @ 100 mls/hr IVPB Q6H-IV [place]; Protocol Last Admin: 08/14/19 09:05 Dose: 100 mls/hr Documented by: Vancomycin HCl 500 mg/ (Dextrose) 100 mls @ 100 mls/hr IVPB Q24H [place]; Protocol Last Admin: 08/13/19 20:49 Dose: 100 mls/hr Documented by: Potassium Chloride 10 meq/ (Sodium Chloride) 1,005 mls @ 83 mls/hr IVPB Q12H [place] Last Admin: 08/14/19 09:00 Dose: 83 mls/hr Documented by: - Objective Vital Signs: Vital Signs Temperature 98.7 F 08/14/19 12:57 Pulse Rate 85 08/14/19 12:57 Respiratory Rate 18 08/14/19 12:57 Blood Pressure 103/45 L 08/14/19 12:57 O2 Sat by Pulse Oximetry (%) 99 08/14/19 09:00 Constitutional: Yes: Calm Eyes: Yes: Conjunctiva Clear HENT: Yes: Atraumatic Neck: Yes: Supple Cardiovascular: Yes: S1, S2 Respiratory: Yes: CTA Bilaterally Gastrointestinal: Yes: Soft Genitourinary: Yes: Incontinence Musculoskeletal: Yes: Muscle Weakness Edema: No Neurological: Yes: Confusion Labs: CBC, BMP 08/13/19 11:10 08/14/19 07:45 INR, PTT INR 1.09 (0.83-1.09) 08/12/19 19:35 Problem List - Problems (1) Pneumonia Code(s): J18.9 - PNEUMONIA, UNSPECIFIED ORGANISM (2) Sepsis Code(s): A41.9 - SEPSIS, UNSPECIFIED ORGANISM Assessment/Plan Current Medications Generic Name Dose Route Start Last Admin Trade Name Freq PRN Reason Stop Dose Admin Piperacillin Sod/Tazobactam 50 mls @ 100 mls/hr 08/13/19 21:00 08/14/19 14:44 Sod 3.375 gm/ Dextrose IVPB 100 mls/hr Q6H-IV [place] Administration Protocol Vancomycin HCl 500 mg/ 100 mls @ 100 mls/hr 08/13/19 20:00 08/13/19 20:49 Dextrose IVPB 100 mls/hr Q24H [place] Administration Protocol Potassium Chloride 10 meq/ 1,005 mls @ 83 mls/hr 08/13/19 17:00 08/14/19 0 9:00 Sodium Chloride IVPB 83 mls/hr Q12H [place] Administration Impression 1. hypotension 2. hypernatremia 3. sepsis 4. pna 5. dementia 6. hld Plan - change fluids to d5w with potassium - bp is improved, please measure with appropriate size cuff, placed in room - follow cultures - cont abx - discussed with family - hypernatremia likely from decrease free water in take
[2019-08-14] MEDS: POTASSIUM CHLORIDE 20 MEQ in DEXTROSE 5%-WATER - 1,000 ML IVPB SCH (15:19)
--- NOTE | 2019-08-14 18:04 | PN ---
Progress Note (short form) - Note Progress Note: doing well on nasl [place] ate some pureed food today +cough alert Vital Signs Period Temp Pulse Resp BP Sys/Garcia Pulse Ox Last 24 Hr 98.7 F-98.7 F 82-86 18-18 83-103/37-45 99-99 cor-rrr lungs decreased bs at bases abd soft,nt ext no edema CBC, BMP 08/13/19 11:10 08/14/19 07:45 Microbiology 08/12/19 20:48 Urine - Urine - Catheterized Urine Culture - Preliminary Lactose Fermenting Neg Bacilli Proteus Species 08/12/19 19:15 Blood - Peripheral Venous Blood Culture - Preliminary NO GROWTH OBTAINED AFTER 24 HOURS, INCUBATION TO CONTINUE FOR 4 DAYS. 08/12/19 19:15 Blood - Peripheral Venous Blood Culture - Preliminary NO GROWTH OBTAINED AFTER 24 HOURS, INCUBATION TO CONTINUE FOR 4 DAYS. imp/reccd 89 yo female lives at home with her son- severe dementia requires total care sepsis dehydration pneumonia UTI severe dementia sacral ulcer continue zosyn f/u cultures d/w daughter at bedside family has opted for palliative care-planning for home hospice
[2019-08-14] MEDS ORDERED: ZOLPIDEM TARTRATE 5 MG TABLET PO ONE (22:20)
[2019-08-15] MEDS ORDERED: PIPERACILLIN/TAZOBACTAM 3.375 GM VIAL IVPB ONE ×4 (02:36→20:01)
[2019-08-15] MEDS ORDERED: DEXTROSE 5%-WATER - 50 ML IVPB ONE ×4 (02:36→20:02)
[2019-08-15] MEDS: PIPERACILLIN/TAZOB 3.375 GM 3.375 GM in DEXTROSE 5%-WATER - 50 ML IVPB SCH ×4 (02:54→20:06)
[2019-08-15] MEDS: POTASSIUM CHLORIDE 20 MEQ in DEXTROSE 5%-WATER - 1,000 ML IVPB SCH ×3 (05:27→17:47)
[2019-08-15] MEDS ORDERED: PT OWN MED DRAWER 7, Y5N ONE (09:13)
--- NOTE | 2019-08-15 11:49 | PN ---
Progress Note (short form) - Note Progress Note: events noted spoke with daughter and son pt is drowsy but awakens when called Vital Signs - 24 hr 08/14/19 08/14/19 08/14/19 12:56 12:57 18:00 Temperature 98.7 F 98.5 F Pulse Rate 82 85 89 Respiratory 18 18 19 Rate Blood Pressure 83/37 L 103/45 L 82/58 L O2 Sat by Pulse Oximetry (%) 08/14/19 08/15/19 21:00 05:55 Temperature 98.2 F Pulse Rate 81 Respiratory 18 Rate Blood Pressure 86/44 L O2 Sat by Pulse 99 Oximetry (%) Current Medications Generic Name Dose Route Start Last Admin Trade Name Freq PRN Reason Stop Dose Admin Piperacillin Sod/Tazobactam 50 mls @ 100 mls/hr 08/13/19 21:00 08/15/19 09:17 Sod 3.375 gm/ Dextrose IVPB 100 mls/hr Q6H-IV [place] Administration Protocol Potassium Chloride 20 meq/ 1,010 mls @ 75 mls/hr 08/14/19 15:00 08/15/19 09:17 Dextrose IVPB 75 mls/hr Q13H [place] Administration S1 S2 RRR Lungs decreased Abd- soft, NT no edema cachetic A/P Pneumonia Advanced dementia failure to thrive metabolic encephalopathy severe malnutrition -- iv fluids -- iv antibiotics -- supportive care -- awaiting home hospice -- palliative eval noted -- pt is DNR/DNI Problem List - Problems (1) Pneumonia Code(s): J18.9 - PNEUMONIA, UNSPECIFIED ORGANISM (2) Acute metabolic encephalopathy Code(s): G93.41 - METABOLIC ENCEPHALOPATHY (3) Pneumonia Code(s): J18.9 - PNEUMONIA, UNSPECIFIED ORGANISM (4) Sepsis Code(s): A41.9 - SEPSIS, UNSPECIFIED ORGANISM (5) Altered mental status Code(s): R41.82 - ALTERED MENTAL STATUS, UNSPECIFIED (6) Anxiety Code(s): F41.9 - ANXIETY DISORDER, UNSPECIFIED (7) Severe protein-calorie malnutrition Code(s): E43 - UNSPECIFIED SEVERE PROTEIN-CALORIE MALNUTRITION
--- NOTE | 2019-08-15 12:56 | PN ---
Progress Note, Physician History of Present Illness: Pt seen and examined at bedside. She is more awake and alert today. - Current Medication List Current Medications: Active Medications Piperacillin Sod/Tazobactam (Sod 3.375 gm/ Dextrose) 50 mls @ 100 mls/hr IVPB Q6H-IV [place]; Protocol Last Admin: 08/15/19 09:17 Dose: 100 mls/hr Documented by: Potassium Chloride 20 meq/ (Dextrose) 1,010 mls @ 75 mls/hr IVPB Q13H [place] Last Admin: 08/15/19 09:17 Dose: 75 mls/hr Documented by: - Objective Vital Signs: Vital Signs Temperature 98.2 F 08/15/19 05:55 Pulse Rate 81 08/15/19 05:55 Respiratory Rate 18 08/15/19 05:55 Blood Pressure 86/44 L 08/15/19 05:55 O2 Sat by Pulse Oximetry (%) 99 08/14/19 21:00 Constitutional: Yes: Calm Eyes: Yes: Conjunctiva Clear HENT: Yes: Atraumatic Cardiovascular: Yes: S1, S2 Respiratory: Yes: CTA Bilaterally Gastrointestinal: Yes: Soft Genitourinary: Yes: WNL, Incontinence Musculoskeletal: Yes: Muscle Weakness Edema: No Neurological: Yes: Confusion Labs: CBC, BMP 08/13/19 11:10 08/14/19 07:45 INR, PTT INR 1.09 (0.83-1.09) 08/12/19 19:35 Problem List - Problems (1) Pneumonia Code(s): J18.9 - PNEUMONIA, UNSPECIFIED ORGANISM (2) Sepsis Code(s): A41.9 - SEPSIS, UNSPECIFIED ORGANISM Assessment/Plan Current Medications Generic Name Dose Route Start Last Admin Trade Name Freq PRN Reason Stop Dose Admin Piperacillin Sod/Tazobactam 50 mls @ 100 mls/hr 08/13/19 21:00 08/15/19 09:17 Sod 3.375 gm/ Dextrose IVPB 100 mls/hr Q6H-IV [place] Administration Protocol Potassium Chloride 20 meq/ 1,010 mls @ 75 mls/hr 08/14/19 15:00 08/15/19 09:17 Dextrose IVPB 75 mls/hr Q13H [place] Administration Impression 1. hypotension 2. hypernatremia 3. sepsis 4. pna 5. dementia 6. hld Plan - check stat bmp - asked nurse to call me with results - pt tolerating fluids - please measure with appropriate size cuff - cont abx - discussed with family - hypernatremia likely from decrease free water in take
[2019-08-15 14:29] LABS: ALBUMIN 1.5 g/dl (3.4-5.0); BILIRUBIN,TOTAL 0.9 mg/dL (0.2-1); BLOOD UREA NITROGEN 12.6 mg/dL (7-18); CALCIUM 8.7 mg/dL (8.5-10.1); CREATININE 0.7 mg/dL (0.55-1.3); TOT PROT 4.9 g/dl (6.4-8.2)
[2019-08-15] MEDS ORDERED: ACETAMINOPHEN 1000 MG/100 ML VIAL (NON FORMULARY) IVPB PRN (15:15)
[2019-08-15] MEDS: KCL 10 MEQ IVPB 10 MEQ/100 ML INFUS.BAG IVPB SCH ×2 (16:28→17:46)
[2019-08-15] MEDS: ACETAMINOPHEN 1000 MG/100 ML VIAL (NON FORMULARY) IVPB PRN (18:34)
[2019-08-15] MEDS ORDERED: POTASSIUM CHLORIDE ORAL LIQUID 20 MEQ/15 ML PO ONE (21:53)
[2019-08-15] MEDS: ZOLPIDEM TARTRATE 5 MG TABLET PO PRN (22:15)
[2019-08-16] MEDS: POTASSIUM CHLORIDE 20 MEQ in DEXTROSE 5%-WATER - 1,000 ML IVPB SCH ×2 (01:06→05:37)
[2019-08-16] MEDS ORDERED: PIPERACILLIN/TAZOBACTAM 3.375 GM VIAL IVPB ONE ×4 (04:09→20:52)
[2019-08-16] MEDS ORDERED: DEXTROSE 5%-WATER - 50 ML IVPB ONE ×4 (04:09→20:52)
[2019-08-16] MEDS: PIPERACILLIN/TAZOB 3.375 GM 3.375 GM in DEXTROSE 5%-WATER - 50 ML IVPB SCH ×4 (04:10→20:55)
--- NOTE | 2019-08-16 10:48 | PN ---
Progress Note (short form) - Note Progress Note: events noted spoke with daughter and son pt is drowsy but awakens when called Vital Signs - 24 hr 08/15/19 08/15/19 08/16/19 19:00 20:16 06:00 Temperature 98.4 F 98.0 F Pulse Rate 84 88 Respiratory 18 18 Rate Blood Pressure 100/51 L 88/45 L O2 Sat by Pulse 98 Oximetry (%) 08/16/19 13:30 Temperature 98.0 F Pulse Rate 85 Respiratory 18 Rate Blood Pressure 149/54 L O2 Sat by Pulse Oximetry (%) Current Medications Generic Name Dose Route Start Last Admin Trade Name Freq PRN Reason Stop Dose Admin Acetaminophen 600 mg 08/15/19 18:32 08/16/19 12:18 Ofirmev Injection - IVPB 08/16/19 18:31 600 mg Q6H PRN Administration PAIN Piperacillin Sod/Tazobactam 50 mls @ 100 mls/hr 08/13/19 21:00 08/16/19 14:40 Sod 3.375 gm/ Dextrose IVPB 100 mls/hr Q6H-IV [place] Administration Protocol Potassium Chloride 20 meq/ 1,010 mls @ 75 mls/hr 08/14/19 15:00 08/16/19 05:37 Dextrose IVPB Not Given Q13H [place] Zolpidem Tartrate 5 mg 08/15/19 15:15 08/15/19 22:15 Ambien - PO 5 mg HS PRN Administration INSOMNIA S1 S2 RRR Lungs decreased Abd- soft, NT no edema cachetic A/P Pneumonia Advanced dementia failure to thrive metabolic encephalopathy severe malnutrition -- iv fluids -- iv antibiotics -- supportive care -- awaiting home hospice -- palliative eval noted -- pt is DNR/DNI Problem List - Problems (1) Pneumonia Code(s): J18.9 - PNEUMONIA, UNSPECIFIED ORGANISM (2) Acute metabolic encephalopathy Code(s): G93.41 - METABOLIC ENCEPHALOPATHY (3) Pneumonia Code(s): J18.9 - PNEUMONIA, UNSPECIFIED ORGANISM (4) Sepsis Code(s): A41.9 - SEPSIS, UNSPECIFIED ORGANISM (5) Altered mental status Code(s): R41.82 - ALTERED MENTAL STATUS, UNSPECIFIED (6) Anxiety Code(s): F41.9 - ANXIETY DISORDER, UNSPECIFIED (7) Severe protein-calorie malnutrition Code(s): E43 - UNSPECIFIED SEVERE PROTEIN-CALORIE MALNUTRITION
[2019-08-16] MEDS: ACETAMINOPHEN 1000 MG/100 ML VIAL (NON FORMULARY) IVPB PRN (12:18)
--- NOTE | 2019-08-16 17:45 | PN ---
Progress Note, Physician History of Present Illness: Pt seen and examined at bedside. She is awake but still with poor PO intake. - Current Medication List Current Medications: Active Medications Acetaminophen (Ofirmev Injection -) 600 mg IVPB Q6H PRN PRN Reason: PAIN Stop: 08/16/19 18:31 Last Admin: 08/16/19 12:18 Dose: 600 mg Documented by: Piperacillin Sod/Tazobactam (Sod 3.375 gm/ Dextrose) 50 mls @ 100 mls/hr IVPB Q6H-IV [place]; Protocol Last Admin: 08/16/19 14:40 Dose: 100 mls/hr Documented by: Potassium Chloride 20 meq/ (Dextrose) 1,010 mls @ 75 mls/hr IVPB Q13H [place] Last Admin: 08/16/19 05:37 Dose: Not Given Documented by: Zolpidem Tartrate (Ambien -) 5 mg PO HS PRN PRN Reason: INSOMNIA Last Admin: 08/15/19 22:15 Dose: 5 mg Documented by: - Objective Vital Signs: Vital Signs Temperature 98.0 F 08/16/19 13:30 Pulse Rate 85 08/16/19 13:30 Respiratory Rate 18 08/16/19 13:30 Blood Pressure 149/54 L 08/16/19 13:30 O2 Sat by Pulse Oximetry (%) 98 08/15/19 20:16 Constitutional: Yes: Calm Eyes: Yes: Conjunctiva Clear HENT: Yes: Atraumatic Neck: Yes: Supple Cardiovascular: Yes: S1, S2 Respiratory: Yes: CTA Bilaterally Gastrointestinal: Yes: Soft Genitourinary: Yes: Incontinence Musculoskeletal: Yes: Muscle Weakness Edema: Yes Neurological: Yes: Confusion Labs: CBC, BMP 08/13/19 11:10 08/15/19 13:40 INR, PTT INR 1.09 (0.83-1.09) 08/12/19 19:35 Problem List - Problems (1) Pneumonia Code(s): J18.9 - PNEUMONIA, UNSPECIFIED ORGANISM (2) Sepsis Code(s): A41.9 - SEPSIS, UNSPECIFIED ORGANISM Assessment/Plan Current Medications Generic Name Dose Route Start Last Admin Trade Name Freq PRN Reason Stop Dose Admin Acetaminophen 600 mg 08/15/19 18:32 08/16/19 12:18 Ofirmev Injection - IVPB 08/16/19 18:31 600 mg Q6H PRN Administration PAIN Piperacillin Sod/Tazobactam 50 mls @ 100 mls/hr 08/13/19 21:00 08/16/19 14:40 Sod 3.375 gm/ Dextrose IVPB 100 mls/hr Q6H-IV [place] Administration Protocol Potassium Chloride 20 meq/ 1,010 mls @ 75 mls/hr 08/14/19 15:00 08/16/19 05:37 Dextrose IVPB Not Given Q13H [place] Zolpidem Tartrate 5 mg 08/15/19 15:15 08/15/19 22:15 Ambien - PO 5 mg HS PRN Administration INSOMNIA Impression 1. hypotension 2. hypernatremia 3. sepsis 4. pna 5. dementia 6. hld Plan - no new labs - check bmp - can decrease fluids for now - please measure with appropriate size cuff - cont abx - discussed with family
[2019-08-16] MEDS ORDERED: POTASSIUM CHLORIDE 20 MEQ in DEXTROSE 5%-WATER - 1,000 ML IVPB SCH (18:00)
[2019-08-16 19:30] LABS: BLOOD UREA NITROGEN 7.4 mg/dL (7-18); CALCIUM 8.2 mg/dL (8.5-10.1); CREATININE 0.4 mg/dL (0.55-1.3); POTASSIUM 3.9 mmol/L (3.5-5.1)
[2019-08-16] MEDS: ZOLPIDEM TARTRATE 5 MG TABLET PO PRN (22:17)
[2019-08-17] MEDS ORDERED: DEXTROSE 5%-WATER - 50 ML IVPB ONE ×2 (03:49→08:50)
[2019-08-17] MEDS ORDERED: PIPERACILLIN/TAZOBACTAM 3.375 GM VIAL IVPB ONE ×2 (03:49→08:49)
[2019-08-17] MEDS: PIPERACILLIN/TAZOB 3.375 GM 3.375 GM in DEXTROSE 5%-WATER - 50 ML IVPB SCH ×2 (03:50→08:59)
--- NOTE | 2019-08-17 10:39 | PN ---
Progress Note (short form) - Note Progress Note: PULMONARY More awake per daughter at bedside. Tolerating PO. No fevers recorded. Vital Signs Period Temp Pulse Resp BP Sys/Garcia Pulse Ox Last 24 Hr 98.0 F-98.4 F 80-85 18-18 128-149/54-57 98 Gen: NAD at rest Heart: RRR Lung: decreased breath sounds at the bases Abd: soft, nontender Ext: no edema CBC, BMP 08/13/19 11:10 08/16/19 18:20 Active Medications Piperacillin Sod/Tazobactam (Sod 3.375 gm/ Dextrose) 50 mls @ 100 mls/hr IVPB Q6H-IV [place]; Protocol Last Admin: 08/17/19 08:59 Dose: 100 mls/hr Documented by: Potassium Chloride 20 meq/ (Dextrose) 1,010 mls @ 60 mls/hr IVPB Q16H [place] Last Admin: 08/16/19 19:31 Dose: 60 mls/hr Documented by: Zolpidem Tartrate (Ambien -) 5 mg PO HS PRN PRN Reason: INSOMNIA Last Admin: 08/16/19 22:17 Dose: 5 mg Documented by: A/P Pneumonia UTI Sepsis Lactic Acidosis +Troponins likely Demand Ischemia HTN Hyperlipidemia Failure to Thrive - complete antibiotics - PO as tolerated - aspiration precautions - DVT prophylaxis
[2019-08-17 12:05] LABS: ALBUMIN 1.5 g/dl (3.4-5.0); BILIRUBIN,TOTAL 0.4 mg/dL (0.2-1); BLOOD UREA NITROGEN 6.9 mg/dL (7-18); CALCIUM 8.2 mg/dL (8.5-10.1); CREATININE 0.4 mg/dL (0.55-1.3); MAGNESIUM 2.2 mg/dL (1.8-2.4); POTASSIUM 3.5 mmol/L (3.5-5.1); TOT PROT 5.1 g/dl (6.4-8.2)
--- NOTE | 2019-08-17 12:37 | PN ---
Progress Note (short form) - Note Progress Note: doing well on nasl [place] ate some pureed food today less cough alert daughter at bedside Vital Signs Period Temp Pulse Resp BP Sys/Garcia Pulse Ox Last 24 Hr 98.0 F-98.4 F 80-85 18-18 128-149/54-57 98 cor-rrr lungs clear abd soft,nt ext no edema CBC, BMP 08/13/19 11:10 08/17/19 10:00 Microbiology 08/12/19 19:15 Blood - Peripheral Venous Blood Culture - Preliminary NO GROWTH OBTAINED AFTER 96 HOURS, INCUBATION TO CONTINUE FOR 1 DAYS. 08/12/19 19:15 Blood - Peripheral Venous Blood Culture - Preliminary NO GROWTH OBTAINED AFTER 96 HOURS, INCUBATION TO CONTINUE FOR 1 DAYS. 08/12/19 20:48 Urine - Urine - Catheterized Urine Culture - Final Escherichia Coli Proteus Mirabilis imp/reccd 89 yo female lives at home with her son- severe dementia requires total care sepsis dehydration pneumonia UTI severe dementia sacral ulcer day #5 zosyn, can switch to po augmentin suspension to finish total 7 days hospice nurse evaluation today please call back if needed
--- NOTE | 2019-08-17 12:39 | PN ---
Progress Note (short form) - Note Progress Note: Pt seen/ examined comfortable daughter at bedside eats a little per daughter Vital Signs Temp 98.4 F 08/17/19 06:38 Pulse 80 08/17/19 06:38 Resp 18 08/17/19 06:38 BP 128/57 L 08/17/19 06:38 Pulse Ox 98 08/16/19 21:00 Intake & Output 08/16/19 08/17/19 08/17/19 23:59 11:59 23:59 Intake Total 2380 970 Output Total 50 Balance 2330 970 Intake: IV 2010 720 1/2 NS w/ KCL 10 meq. @ 120 83/hr. D5W+20KCL @75 1890 720 IVPB 270 100 Oral 100 100 Oral Supplement 50 Output: Urine 50 Mota 50 Other: Voiding Method Incontinent Incontinent # Unmeasured Voids Void 2 2 Bowel Movement No No Active Medications Piperacillin Sod/Tazobactam (Sod 3.375 gm/ Dextrose) 50 mls @ 100 mls/hr IVPB Q6H-IV [place]; Protocol Last Admin: 08/17/19 08:59 Dose: 100 mls/hr Documented by: Potassium Chloride 20 meq/ (Dextrose) 1,010 mls @ 60 mls/hr IVPB Q16H [place] Last Admin: 08/16/19 19:31 Dose: 60 mls/hr Documented by: Zolpidem Tartrate (Ambien -) 5 mg PO HS PRN PRN Reason: INSOMNIA Last Admin: 08/16/19 22:17 Dose: 5 mg Documented by: CBC, BMP 08/13/19 11:10 08/17/19 10:00 Microbiology 08/12/19 19:15 Blood Culture - Preliminary Blood - Peripheral Venous NO GROWTH OBTAINED AFTER 96 HOURS, INCUBATION TO CONTINUE FOR 1 DAYS. 08/12/19 19:15 Blood Culture - Preliminary Blood - Peripheral Venous NO GROWTH OBTAINED AFTER 96 HOURS, INCUBATION TO CONTINUE FOR 1 DAYS. Physical Exam S1 S2 RRR Lungs decreased Abd- soft, NT no edema cachetic A/P Pneumonia Advanced dementia failure to thrive metabolic encephalopathy severe malnutrition -- iv fluids -- iv antibiotics-- change to poi -- supportive care -- awaiting home hospice -- palliative eval noted -- pt is DNR/DNI - d/w Rn also
--- NOTE | 2019-08-17 16:25 | PN ---
Progress Note, Physician History of Present Illness: Pt seen and examined at bedside. She is awake and appears comfortable. - Current Medication List Current Medications: Active Medications Amoxicillin/Clavulanate Potassium (Augmentin - 875mg Tablet) 1 tab PO BID@0800,1730 [place] Potassium Chloride 20 meq/ (Dextrose) 1,010 mls @ 60 mls/hr IVPB Q16H [place] Last Admin: 08/16/19 19:31 Dose: 60 mls/hr Documented by: Zolpidem Tartrate (Ambien -) 5 mg PO HS PRN PRN Reason: INSOMNIA Last Admin: 08/16/19 22:17 Dose: 5 mg Documented by: - Objective Vital Signs: Vital Signs Temperature 97.7 F 08/17/19 14:11 Pulse Rate 90 08/17/19 14:11 Respiratory Rate 18 08/17/19 14:11 Blood Pressure 136/88 08/17/19 14:11 O2 Sat by Pulse Oximetry (%) 98 08/16/19 21:00 Constitutional: Yes: Calm Eyes: Yes: Conjunctiva Clear HENT: Yes: Atraumatic Neck: Yes: Supple Cardiovascular: Yes: S1, S2 Respiratory: Yes: CTA Bilaterally Gastrointestinal: Yes: Normal Bowel Sounds, Soft Genitourinary: Yes: Incontinence Musculoskeletal: Yes: WNL Edema: No Neurological: Yes: Lethargy Labs: CBC, BMP 08/13/19 11:10 08/17/19 10:00 INR, PTT INR 1.09 (0.83-1.09) 08/12/19 19:35 Problem List - Problems (1) Pneumonia Code(s): J18.9 - PNEUMONIA, UNSPECIFIED ORGANISM (2) Sepsis Code(s): A41.9 - SEPSIS, UNSPECIFIED ORGANISM Assessment/Plan Current Medications Generic Name Dose Route Start Last Admin Trade Name Freq PRN Reason Stop Dose Admin Amoxicillin/Clavulanate Potassium 1 tab 08/17/19 17:30 Augmentin - 875mg Tablet PO BID@0800,1730 [place] Potassium Chloride 20 meq/ 1,010 mls @ 60 mls/hr 08/16/19 18:00 08/16/19 19:31 Dextrose IVPB 60 mls/hr Q16H [place] Administration Zolpidem Tartrate 5 mg 08/15/19 15:15 08/16/19 22:17 Ambien - PO 5 mg HS PRN Administration INSOMNIA Impression 1. hypotension 2. hypernatremia 3. sepsis 4. pna 5. dementia 6. hld Plan - cont fluids, can decrease rate - encourage po intake - sodium improving - cont abx - discussed with family
[2019-08-17] MEDS: POTASSIUM CHLORIDE 20 MEQ in DEXTROSE 5%-WATER - 1,000 ML IVPB SCH (17:33)
[2019-08-17] MEDS: AMOX TR/POT CLAV 875MG/125MG TABLETS (FP) PO SCH (18:03)
[2019-08-17] MEDS: ZOLPIDEM TARTRATE 5 MG TABLET PO PRN (22:49)
[2019-08-18 04:08] VITALS: BP 89/50; PULSE 108; TEMP 98.3
[2019-08-18 08:20] LABS: ALBUMIN 1.5 g/dl (3.4-5.0); BILIRUBIN,TOTAL 0.5 mg/dL (0.2-1); BLOOD UREA NITROGEN 6.3 mg/dL (7-18); CALCIUM 8.1 mg/dL (8.5-10.1); CREATININE 0.4 mg/dL (0.55-1.3); POTASSIUM 3.8 mmol/L (3.5-5.1)
[2019-08-18] MEDS: POTASSIUM CHLORIDE 20 MEQ in DEXTROSE 5%-WATER - 1,000 ML IVPB SCH (09:10)
[2019-08-18] MEDS: AMOX TR/POT CLAV 875MG/125MG TABLETS (FP) PO SCH (09:15)
[2019-08-18] MEDS ORDERED: ACETAMINOPHEN 650 MG/20.3 ML ORAL SOLUTION (CUPS) PO PRN (11:09)
--- NOTE | 2019-08-18 11:45 | DS ---
Physical Examination Vital Signs: Vital Signs Temperature 98.3 F 08/18/19 06:10 Pulse Rate 108 H 08/18/19 06:10 Respiratory Rate 18 08/18/19 09:00 Blood Pressure 89/50 L 08/18/19 06:10 O2 Sat by Pulse Oximetry (%) 98 08/18/19 09:00 Constitutional: Yes: No Distress Cardiovascular: Yes: Regular Rate and Rhythm Respiratory: Yes: Diminished Gastrointestinal: Yes: Normal Bowel Sounds, Soft. No: Tenderness Edema: No Labs: CBC, BMP 08/13/19 11:10 08/18/19 06:50 Discharge Summary Problems reviewed: Yes Reason For Visit: SEPSIS, PNEUMONIA Current Active Problems Acute metabolic encephalopathy (Acute) Pneumonia (Acute) Pneumonia (Acute) Sepsis (Acute) Severe protein-calorie malnutrition (Acute) Health Concerns: admitted for respiratory distress found to have pneumonia on iv antibiotics, nebs seen by ID Family made decision for home hospice as pt 's condition is worsening pt dc home on home hospice Condition: Improved - Instructions Referrals: Geeta Jackson MD [Primary Care Provider] - Disposition: HOME - Home Medications Comprehensive Discharge Medication List: Ambulatory Orders Zolpidem Tartrate [Ambien] 5 mg PO HS 02/03/18 Amox-Tr/K Cl [Augmentin 875-125mg Tablet -] 1 tab PO BID@0800,1730 #6 tablet 08/18/19
== END 2019-08-18 12:27 | disposition home or self-care (01) | DRG 871 ==
LOC: JER 18:28 → JERBED 19:58 → J6S 08-13 07:19
PROVIDERS: ADMIT Internal Medicine; ATTEND Internal Medicine
DX: A41.89 Other specified sepsis (principal); J18.9 Pneumonia, unspecified organism; G93.41 Metabolic encephalopathy; E43 Unspecified severe protein-calorie malnutrition; R64 Cachexia; Z68.1 Body mass index [BMI] 19.9 or less, adult; N39.0 Urinary tract infection, site not specified; E87.0 Hyperosmolality and hypernatremia; R62.7 Adult failure to thrive; K21.9 Gastro-esophageal reflux disease without esophagitis; I10 Essential (primary) hypertension; E86.0 Dehydration; E78.5 Hyperlipidemia, unspecified; G30.9 Alzheimer's disease, unspecified; F02.80 Dementia in other diseases classified elsewhere, unspecified severity, without behavioral disturbance, psychotic disturbance, mood disturbance, and anxiety; L89.152 Pressure ulcer of sacral region, stage 2; R00.0 Tachycardia, unspecified; K31.84 Gastroparesis; R41.82 Altered mental status, unspecified; F41.9 Anxiety disorder, unspecified; I95.9 Hypotension, unspecified; Z66 Do not resuscitate; Z85.828 Personal history of other malignant neoplasm of skin
CPT/HCPCS: 36415; 36600; 71045-TC-FY; 80048; 80053; 81003; 82550; 82553; 82803; 83605; 83735; 84100; 84484; 85025; 85610; 85730; 87040; 87086; 87186; 87804; 93005; 93010; 99285-25; J0131